=== PATIENT | male | born 1945 | race Caucasian/White ===

== ENCOUNTER 2020-05-22 03:07 | Outpatient (CLI) | payer MEDICARE, SELFPAY ==
[2020-05-23 15:52] LABS: COVID-19 RT-PCR UVMMC Result Negative (Negative)
== END 2020-05-22 03:08 | disposition home or self-care (01) ==
LOC: LBO 03:08
PROVIDERS: PCP Emergency Medicine; Visit Provider Emergency Medicine
DX: Z20.822 Contact with and (suspected) exposure to COVID-19 (principal)
CPT/HCPCS: U0003

== ENCOUNTER 2021-06-21 15:55 | Outpatient (CLI) | payer MEDICARE, SELFPAY ==
[2021-06-21 16:20] LABS: ALT 49 U/L (16-63); AST 44 U/L (15-37); Albumin 3.9 g/dL (3.4-5.0); Alkaline Phosphatase 84 U/L (46-116); Anion Gap 7.3 mmol/L (3-11); BUN 19 mg/dL (7-18); Bilirubin, Total 0.5 mg/dL (0.2-1.0); CO2 33.7 mmol/L (21.0-32.0); CREATININE 1.1 mg/dL (0.70-1.30); Calcium 9.7 mg/dL (8.5-10.1); Calculated LDL 73 mg/dL (<100); Chloride 94 mmol/L (98-107); Cholesterol 167 mg/dL (<200); Glucose 88 mg/dL (74-106); HDL Cholesterol 70 mg/dL (40-60); Potassium 3.9 mmol/L (3.5-5.1); Sodium 135 mmol/L (136-145); Total Protein 7.9 g/dL (6.4-8.2); Triglyceride 123 mg/dL (<150)
== END 2021-06-21 15:56 | disposition home or self-care (01) ==
LOC: LBO 16:08
PROVIDERS: PCP Family Medicine; Visit Provider Family Medicine
DX: E78.5 Hyperlipidemia, unspecified (principal); I10 Essential (primary) hypertension
CPT/HCPCS: 36415; 80053; 80061

== ENCOUNTER → 2022-01-30 13:35 | Outpatient (BNVA) | payer MEDICARE, SELFPAY | PROVIDERS: PCP Family Medicine; Referring Provider Family Medicine; Visit Provider Physical Therapy Assistant | DX: Z12.11 Encounter for screening for malignant neoplasm of colon (principal) ==

== ENCOUNTER 2022-02-13 08:15 | Day surgery (SDC) | payer MEDICARE, SELFPAY ==
--- NOTE | 2022-02-12 20:29 | PDOC.DSDIS_ITS ---
Date of service: 02/13/22 Time of Service: 10:29 Discharge Plan Disposition Patient Disposition: Home Condition: Good Discharge Details Reason For Visit: Screening colonoscopy Attending Provider: Steven Corado Primary Care Provider: Rachel Taveras Home Meds and New Rx's Prescriptions: Continued amlodipine 5 mg tablet 5 mg PO DAILY Qty: 90 4RF multivitamin 1 EACH tablet 1 ea PO DAILY One-Per-Day [place]-3 1 EACH capsule,delayed release(DR/EC) 1 ea PO DAILY naproxen sodium [Aleve] 220 MG tablet 2 tab PO daily prn metoprolol succinate 25 mg tablet extended release 24 hr 25 mg PO DAILY Qty: 90 4RF tamsulosin 0.4 mg capsule 0.4 mg PO HS Qty: 90 4RF furosemide [Lasix] 40 mg tablet 40 mg PO DAILY Qty: 90 3RF pravastatin 40 mg tablet 40 mg PO DAILY Qty: 90 3RF losartan [Cozaar] 100 mg tablet 100 mg PO HS Discontinued polyethylene glycol 3350 17 gram/dose powder 238 g PO ONCE Qty: 238 0RF Rx Instructions: take per colonoscopy instructions bisacodyl [Dulcolax (bisacodyl)] 5 mg tablet,delayed release (DR/EC) 5 mg PO ONCE Qty: 4 0RF Rx Instructions: take per colonoscopy instructions Discharge Instructions Instructions: Diverticulosis (DC), Diverticulitis Diet (GEN), Diverticulitis (GEN), Diverticulosis Diet (GEN) Additional Instructions: 1. If tolerated, consume a soft, low fiber diet for 1-2 days. 2[address] Do not drive, drink alcohol, operate machinery, make critical decisions, or do activities that require coordination or balance for 24 hours. 3. Because air was put into your colon during the procedure, expelling air from your rectum (passing gas or farting) is normal. 4. You may not have a bowel movement for 1-3 days because of the colonoscopy prep. This is normal. 5. Go directly to the emergency room if you notice any of the following: Develop chills (warm to touch), or if you have a thermometer and your temperature is above 101 Difficulty breathing or difficultly swallowing Persistent vomiting Severe abdominal pain, other than gas cramps Severe chest pain Black, tarry stools Any bleeding ? exceeding one tablespoon 6. Call your physician if the site where your intravenous was started becomes red, swollen, painful, and warm to touch. 7. Your physician has reviewed your pre-procedure medications. Please continue to take those medications as previously ordered. You will be given specific information/education regarding any changes to your medications before leaving. Activity:: Activity as Tolerated Diet:: As Tolerated Discharge Orders Discharge Orders: Discharge Order (Routine); Ordered 02/12/22 Ordered By: Steven Corado DS: Diagnosis Discharge Diagnosis (1) Diverticulosis: Status: Acute Asessment and Plan: You have extensive diverticulosis on your colonoscopy. Otherwise, there were no signs of any polyps or cancers.
--- NOTE | 2022-02-12 20:30 | W.COLOREPORT ---
Date of service: 02/13/22 Time of Service: 10:30 Colonoscopy Report Date of procedure: 02/13/22 Pre-op diagnosis general: Screening colonoscopy Post-op diagnosis procedure note: other (Diverticulosis) Procedure: colonoscopy Surgeon: Steven Corado Anesthesia Type: General:No Airway Estimated blood loss (mL): 0 Pathology: none sent Complications: None Disposition: same day Indications: Ibrahima is a 76 year old man who is undergoing a screening colonoscopy. His last one ws in 2006 and is reportedly normal Prep: Miralax/Dulcolax Procedure Start Time: 09:49 Procedure End Time: 10:18 Retraction Time: 19 Findings: Extensive diverticulosis Procedure Description: After the induction of monitored anesthetic care, and with the patient in left lateral decubitus position, I began by performing an external anorectal exam.? Perineum and skin were normal, as was the anal verge.? There was no evidence of external hemorrhoids.? Next, I performed a digital rectal exam.? I did not appreciate any abnormal findings.? Next, I advanced a colonoscope into the rectal vault.? I performed retroflexion.? This was normal.? Using insufflation, I then advanced the colonoscope beyond the rectal folds and into the sigmoid colon before advancing towards the cecum.? There was extensive sigmoid diverticulosis beginning around 25 cm from the anal verge, and extending well up around the splenic flexure. The quality of the prep was excellent.? The scope was noted to be in the cecum by identification of the ileocecal valve and appendiceal orifice.? There was also extensive diverticulosis involving cecum and ascending colon. The transverse colon was relatively spared. I then began withdrawing the colonoscope using repeated irrigation as necessary for full evaluation of the colonic mucosa. ?Once the scope was withdrawn to the level of the rectum, great care was taken to examine portions of the rectal folds.? I did not see any evidence of polyps or other abnormalities besides the diverticulosis. Finally, the scope was withdrawn and the patient was brought to the same-day surgery recovery unit as the anesthetic wore off. ?The findings and instructions were shared with the patient prior to discharge.
--- NOTE | 2022-02-13 06:36 | W.ANESPRE ---
General Info Date of Service Date Performed: 02/13/22 Height: 5 ft 10 in Weight: 93.5 kg Body Mass Index (BMI): 29.5 Surgical Procedure: Operation Date: 02/13/22 09:50 Proposed Procedure Side Surgeon anoop Corado MD Meds Allergies and Home Medications Allergies Allergy/AdvReac Type Severity Reaction Status Date / Time thiopental Allergy Intermediate Skin Rash Verified 02/13/22 08:55 Home Medication Medication Instructions Recorded multivitamin 1 ea PO DAILY 10/20/12 omega-3 fatty acids-fish oil 684 1 ea PO DAILY 10/20/12 mg-1,200 mg capsule,delayed release (One-Per-Day [place]-3) naproxen sodium 220 mg tablet 2 tab PO daily prn 12/09/13 (Aleve) metoprolol succinate 25 mg 25 mg PO DAILY #90 tabs 02/26/21 tablet,extended release 24 hr tamsulosin 0.4 mg capsule 0.4 mg PO HS #90 tabs 02/26/21 amlodipine 5 mg tablet 5 mg PO DAILY #90 tab-caps 05/27/21 furosemide 40 mg tablet (Lasix) 40 mg PO DAILY #90 tab-caps 01/02/22 pravastatin 40 mg tablet 40 mg PO DAILY #90 tab-caps 02/04/22 losartan 100 mg tablet (Cozaar) 100 mg PO HS 02/11/22 Current Visit Medications: Current Medications Generic Name Dose Route Start Last Admin Trade Name Freq PRN Reason Stop Dose Admin Hyoscyamine Sulfate 0.125 mg 02/12/22 20:32 Hyoscyamine 0.125 Mg Sl/Oral/Chew SL DIRECTED PRN Ringer's Solution 1,000 mls @ 80 mls/hr 02/13/22 06:00 IV 03/14/22 23:59 INFUSION [facility] IV Miscellaneous Supplies 1 each 02/13/22 06:00 Iv Access IV 03/14/22 23:59 DIRECTED [place] Ondansetron HCl 4 mg 02/12/22 20:32 Ondansetron 4 Mg/2 Ml Vial IVP Q4H PRN PRN Nausea / Vomiting Sodium Chloride 0 ml 02/13/22 06:00 Normal Saline Flush 10 Ml Syr IV 03/14/22 23:59 PRN PRN Sodium Chloride 0 ml 02/13/22 06:00 Normal Saline 10 Ml Vial IJ 03/14/22 23:59 DIRECTED PRN Sterile Water 0 ml 02/13/22 06:00 Water,Injection,Sterile 10 Ml Vial IJ 03/14/22 23:59 DIRECTED PRN PFSH Active Problems Active Problems: Problem Status Onset Code Alcohol abuse 11/02/12 F10.10 Benign prostatic hyperplasia N40.0 Essential hypertension I10 Hyperlipidemia E78.5 Obesity E66.9 Medical History Medical History COVID-19 05/2021-URI symptoms, breakthrough-fully immunized, treated with Paxlovid Spinal stenosis surgery Magn[place] 05/06 x 2; now disabled. Surgical History Surgical History History of colonoscopy History of umbilical hernia repair S/P cataract extraction Status post lumbar spine surgery for decompression of spinal cord Tobacco Smoking/Tobacco Use Status: Former Tobacco Use Passive smoking exposure: No Alcohol Alcohol Intake: current Alcohol intake frequency: 3 or more drinks per day Alcohol type: wine Counseling provided: provider counseling Substance Use Substance use: Never Substance use type: does not use Vital Signs and Lab Results Lab Results Blood Type / Crossmatch: No Data to Display Complete Blood Count: No Data to Display Complete Metabolic Panel: No Data to Display Liver Function Panel: No Data to Display Coagulation Panel: No Data to Display Cardiac Panel: No Data to Display Arterial Blood Gas: No Data to Display Venous Blood Gas: No Data to Display Pancreas Panel: No Data to Display Thyroid Panel: No Data to Display Infectious Disease: No Data to Display Blood Cultures: No Data to Display Toxicology Panel: No Data to Display Anesthesia Assessment and Plan Anesthesia History Personal History: No History of Anesthesia Complications Family History: No Family History of Anesthesia Complications Exercise Tolerance Exercise Tolerance: Metabolic Equivalents>4 Pertinent Negatives Pertinent Negatives: No Symptoms of GERD, No Major Cardiovascular Symptoms or Complaints, No Major Pulmonary Symptoms or Complaints and No History of CVA/TIA Cardiac & Pulmonary Exam Cardiac Exam: Normal S1/S2 Heart Sounds Pulmonary Exam: Clear Bilateral Breath Sounds Implantable Cardiac Device Does patient have a Pacemaker or an ICD?: No Airway Exam Known Difficult Airway: No Mallampati Class: 2 Mouth Opening: Normal (> 3cm) Thyromental Distance: Greater than 3 cm Neck Range of Motion: Full ROM Neck Circumference: Normal Teeth Condition: Normal Dentition ASA Classification ASA Score: ASA 2 Emergency Case?: No NPO Status NPO Status: NPO Clears >2 hours, Solids >8 hours Anesthesia Plan Resuscitation Status: Full Code Anesthesia Technique: General Anesthesia Airway Planned: Natural Airway Monitors Used: Standard Monitors Preoperative Comments:: Concern related to positioning secondary to patient history lumbar region. Will discuss at length with patient.
[2022-02-13 08:34] VITALS: BP 151/85; PULSE 87; RESP 16; TEMP 36; O2SAT 98
[2022-02-13] MEDS: Lactated Ringers 1,000 ML 80 ML IV (08:47)
[2022-02-13 10:26] VITALS: BP 93/67; PULSE 72; RESP 16; TEMP 36; O2SAT 96
[2022-02-13 10:30] VITALS: BMI 29.5
--- NOTE | 2022-02-13 10:30 | W.ANESPOSTOP ---
Postoperative Evaluation Date, Time and Location Date Performed: 02/13/22 Time Performed: 10:31 Patient Location: Day Surgery Unit Vital Signs Most Recent Imported Vital Signs: Most Recent Vital Signs Temp Pulse Resp BP Pulse Ox 36 C L 72 16 93/67 L 96 02/13/22 10:26 02/13/22 10:26 02/13/22 10:26 02/13/22 10:02/13/22 10:26 Pain Score Most Recent Pain Score: Most Recent Pain Score Pain Level 0 02/13/22 10:26 Assessment Mental Status: Awake (Alert & Oriented to Patient Baseline) Airway and Respiratory Function: Patent airway with normal (patient baseline) respiratory exam Cardiovascular Function: Hemodynamically Stable Hydration Status: Adequately Hydrated Nausea & Vomiting: No Nausea or Vomiting Pain: Pt. Denies Any Pain Peripheral Nerve Block: Patient did not receive a nerve block
[2022-02-13 10:55] VITALS: BP 118/79; PULSE 68; RESP 16; TEMP 36.3; O2SAT 95
== END 2022-02-13 11:09 | disposition home or self-care (01) ==
PROVIDERS: PCP Family Medicine; Visit Provider Surgery
PROC: 0DJD8ZZ Inspection of Lower Intestinal Tract, Via Natural or Artificial Opening Endoscopic (ICD-10-PCS; CPT 45378; principal; 2022-02-13 09:45)
DX: Z12.11 Encounter for screening for malignant neoplasm of colon (principal); K57.30 Diverticulosis of large intestine without perforation or abscess without bleeding
CPT/HCPCS: G0121

== ENCOUNTER 2022-09-05 09:06 | Outpatient (CLI) | payer MEDICARE, SELFPAY ==
[2022-09-05 12:37] LABS: ALT 25 U/L (16-63); AST 26 U/L (15-37); Albumin 3.7 g/dL (3.4-5.0); Alkaline Phosphatase 99 U/L (46-116); Anion Gap 9.6 mmol/L (3-11); BUN 17 mg/dL (7-18); Bilirubin, Total 0.8 mg/dL (0.2-1.0); CO2 30.4 mmol/L (21.0-32.0); Calcium 9.6 mg/dL (8.5-10.1); Chloride 93 mmol/L (98-107); Estimated GFR 77.04 (mL/min/1.73m2); Glucose 118 mg/dL (74-106); Potassium 3.8 mmol/L (3.5-5.1); Sodium 133 mmol/L (136-145); Total Protein 7.9 g/dL (6.4-8.2)
== END 2022-09-05 09:07 | disposition home or self-care (01) ==
LOC: LOS 09:07
PROVIDERS: PCP Family Medicine; Referring Provider Family Medicine; Visit Provider Family Medicine
DX: I10 Essential (primary) hypertension (principal); E66.8 Other obesity
CPT/HCPCS: 36415; 80053

== ENCOUNTER 2022-10-25 07:29 | Emergency (ER) | payer MEDICARE, SELFPAY ==
[2022-10-25 07:34] VITALS: BP 132/71; PULSE 120; RESP 18; TEMP 36.5; O2SAT 96
[2022-10-25 08:06] LABS: Bilirubin Negative (Negative); Blood Large (Negative); Clarity Cloudy (Clear); Glucose Negative (Negative); Ketones Negative (Negative); Leukocyte Esterase Large (Negative); Nitrite Negative (Negative); Urobilinogen 0.2 mg/dL (Up to 0.2)
[2022-10-25 08:16] LABS: C & S Indicated? Yes; RBC >50 HPF (0-2); WBC 20-50 HPF (0-5)
--- NOTE | 2022-10-25 08:21 | ED.GENADUL_ITS ---
Discharge Plan Disposition Patient Disposition: Home Condition: Stable Discharge Details Clinical Impression: Acute hemorrhagic cystitis, Dehydration Primary Care Provider: Rachel Taveras ED Provider: Bianka Morataya Home Meds and New Rx's Prescriptions: New cephalexin 500 mg capsule 500 mg PO BID 7 Days Qty: 14 0RF Rx Instructions: Take 1 capsule twice daily by mouth for the next 7 days Continued multivitamin 1 EACH tablet 1 ea PO DAILY One-Per-Day [place]-3 1 EACH capsule,delayed release(DR/EC) 1 ea PO DAILY furosemide [Lasix] 40 mg tablet 40 mg PO DAILY Qty: 90 3RF pravastatin 40 mg tablet 40 mg PO DAILY Qty: 90 3RF amlodipine 5 mg tablet 5 mg PO DAILY Qty: 90 3RF metoprolol succinate 25 mg tablet extended release 24 hr 25 mg PO DAILY Qty: 90 4RF losartan [Cozaar] 100 mg tablet 100 mg PO HS No Action naproxen sodium [Aleve] 220 MG tablet 2 tab PO daily prn tamsulosin 0.4 mg capsule 0.4 mg PO HS Qty: 90 4RF Discharge Instructions Instructions: Dehydration (ED), Hematuria (ED) Additional Instructions: You do have a urinary tract infection and some dehydration. Please increase oral fluids over the next few days. Take the antibiotic as directed with yogurt or a probiotic. Return to the ER sooner for any worsening bleeding, feeling like you cannot pee, dizziness lightheadedness or concerns Please follow-up with urology within the next 3 to 5 days. Please call early next week to make an appointment. you are also placed on a care management list to assist you with getting an appointment. Follow up with primary care provider in 3-5 days. Return to ED sooner if any worsening or concerns. Increase oral fluids. Please stay away from alcohol or anything that can thin your blood. Referrals: Randall Clements MD [ [facility] STAFF PHYSICIAN] - 1 week Ashley Hoffman DNP [NURSE PRACTITIONER] - 5 days Rachel Taveras MD [Primary Care Provider] - Return if symptoms worsen Discharge Data Discharge Date/Time-TO BE ENTERED AT DEPARTURE: 10/25/22 10:20 Medical Decision Making 77-year-old male presents to the ER with a past medical history of hypertension hyperlipidemia spinal stenosis obesity BPH and alcohol abuse with chief complaint of hematuria x2 days. reports that he is passing clots this he has never had anything like this before. He denies any dizziness lightheadedness denies any abdominal pain or back pain however he does have a history of spinal stenosis he reports none out of the normal. Upon arrival he is tachycardic with a heart rate of 1 20-1 30, he does endorse greater than 3 drinks a day. He also does take an Aleve daily as needed. Urinalysis shows greater than 300 protein large blood greater than 50 RBCs 20-50 WBCs culture is pending at this time. CBC CMP 500 cc normal saline bolus ordered. Differential diagnosis includes not limited to hemorrhagic cystitis, anxiety, alcohol withdrawal, however no tremors, Heart rate is no 97, O2 sat 95% on room air. CBC shows RBCs at 3.50 hemoglobin 11.6 hematocrit 32.9, MCH 33.1. Platelets 363 no leukocytosis no left shift. Last H&H we have is from 2015. On reevaluation patient's heart rate is 88 he is continuing to get normal saline. I did discuss at length home care will place patient on cephalexin twice daily for the next 7 days referred to urology for hematuria and acute hemorrhagic cystitis. Discussed strict return instructions and follow-up care and patient verbalized understanding. Lab Data Lab results reviewed: Yes I reviewed the patient's lab results. Labs: 10/25/22 07:46 Urine - Reflex from Ua Urine Culture - Pending Laboratory Tests Range/Units 10/25/22 10/25/22 10/25/22 07:46 08:33 08:42 WBC (4.4-10.8) 10^3/uL RBC (4.36-5.78) 10^6/uL Hgb (13.5-17.5) g/dL Hct (40.0-50.0) % MCV (80-95) fL MCH (27.0-33.0) pg MCHC (32.0-36.0) % RDW (11.8-14.1) % Plt Count (130-400) 10^3/uL MPV (8.0-11.0) fL Immature Gran % Neutrophils % Lymphocytes % Monocytes % Eosinophils % Basophils % Nucleated RBC % (0.0-0.3) % Absolute Neutrophils (1.2-6.7) 10^3/uL Absolute Lymphocytes (1.2-3.4) 10^3/uL Absolute Monocytes (0.1-0.8) 10^3/uL Absolute Eosinophils (0.0-0.7) 10^3/uL Absolute Basophils (0.0-0.2) 10^3/uL Sodium (136-145) mmol/L 126 L Potassium (3.5-5.1) mmol/L 4.5 Chloride (98-107) mmol/L 87 L Carbon Dioxide (21.0-32.0) mmol/L 26.8 Anion Gap (3-11) mmol/L 12.2 H BUN (7-18) mg/dL 31 H Creatinine (0.70-1.30) mg/dL 1.7 H Est GFR (CKD-EPI 2020) (mL/min/1.73m2) 40.50 Glucose (74-106) mg/dL 135 H Calcium (8.5-10.1) mg/dL 10.0 Total Bilirubin (0.2-1.0) mg/dL 0.8 AST (15-37) U/L 15 ALT (16-63) U/L 19 Alkaline Phosphatase (46-116) U/L 85 Total Protein (6.4-8.2) g/dL 8.8 H Albumin (3.4-5.0) g/dL 3.3 L Urine Color (Yellow) Red Urine Clarity (Clear) Cloudy Urine pH (5-8) 7.0 Ur Specific [place] (1.005-1.025) 1.020 Urine Protein (Negative) mg/dL >=300 H Urine Ketones (Negative) mg/dL Negative Urine Blood (Negative) Large H Urine Nitrite (Negative) Negative Urine Bilirubin (Negative) Negative Urine Urobilinogen (Up to 0.2) mg/dL 0.2 Ur Leukocyte Esterase (Negative) Large H Urine RBC (0-2) HPF >50 H Urine WBC (0-5) HPF 20-50 H Ur Epithelial Cells Not Applicable Urine Crystals Not Applicable Urine Bacteria Not Applicable Urine Mucus Not Applicable Ur Culture Indicated? Yes Urine Glucose (Negative) mg/dL Negative Ethyl Alcohol Cancelled < 3.0 Range/Units 10/25/22 08:42 WBC (4.4-10.8) 10^3/uL 7.94 RBC (4.36-5.78) 10^6/uL 3.50 L Hgb (13.5-17.5) g/dL 11.6 L Hct (40.0-50.0) % 32.9 L MCV (80-95) fL 94 MCH (27.0-33.0) pg 33.1 H MCHC (32.0-36.0) % 35.3 RDW (11.8-14.1) % 11.9 Plt Count (130-400) 10^3/uL 363 MPV (8.0-11.0) fL 8.0 Immature Gran % 2.0 Neutrophils % 74.0 Lymphocytes % 15.1 Monocytes % 7.7 Eosinophils % 0.9 Basophils % 0.3 Nucleated RBC % (0.0-0.3) % 0.0 Absolute Neutrophils (1.2-6.7) 10^3/uL 5.88 Absolute Lymphocytes (1.2-3.4) 10^3/uL 1.20 Absolute Monocytes (0.1-0.8) 10^3/uL 0.61 Absolute Eosinophils (0.0-0.7) 10^3/uL 0.07 Absolute Basophils (0.0-0.2) 10^3/uL 0.02 Sodium (136-145) mmol/L Potassium (3.5-5.1) mmol/L Chloride (98-107) mmol/L Carbon Dioxide (21.0-32.0) mmol/L Anion Gap (3-11) mmol/L BUN (7-18) mg/dL Creatinine (0.70-1.30) mg/dL Est GFR (CKD-EPI 2020) (mL/min/1.73m2) Glucose (74-106) mg/dL Calcium (8.5-10.1) mg/dL Total Bilirubin (0.2-1.0) mg/dL AST (15-37) U/L ALT (16-63) U/L Alkaline Phosphatase (46-116) U/L Total Protein (6.4-8.2) g/dL Albumin (3.4-5.0) g/dL Urine Color (Yellow) Urine Clarity (Clear) Urine pH (5-8) Ur Specific [place] (1.005-1.025) Urine Protein (Negative) mg/dL Urine Ketones (Negative) mg/dL Urine Blood (Negative) Urine Nitrite (Negative) Urine Bilirubin (Negative) Urine Urobilinogen (Up to 0.2) mg/dL Ur Leukocyte Esterase (Negative) Urine RBC (0-2) HPF Urine WBC (0-5) HPF Ur Epithelial Cells Urine Crystals Urine Bacteria Urine Mucus Ur Culture Indicated? Urine Glucose (Negative) mg/dL Ethyl Alcohol HPI General Mode of arrival: ambulatory . Date/Time Provider Initiated Documentation: 10/25/22 08:05 . Limitations to Documentation: no limitations . Information obtained by: patient, RN notes reviewed and old records reviewed . HPI Narrative: 77-year-old male presents to the ER with a past medical history of hypertension hyperlipidemia spinal stenosis obesity BPH and alcohol abuse with chief complaint of hematuria x2 days. reports that he is passing clots this he has never had anything like this before. He denies any dizziness light headedness denies any abdominal pain or back pain however he does have a history of spinal stenosis he reports none out of the normal. Upon arrival he is tachycardic with a heart rate of 1 20-1 30, he does endorse greater than 3 drinks a day. He also does take an Aleve daily as needed. Related Data Home Medications Medication Instructions Recorded Confirmed multivitamin 1 ea PO DAILY 10/20/12 10/25/22 omega-3 fatty acids-fish oil 684 1 ea PO DAILY 10/20/12 10/25/22 mg-1,200 mg capsule,delayed release (One-Per-Day [place]-3) naproxen sodium 220 mg tablet 2 tab PO daily prn 12/09/13 10/25/22 (Aleve) furosemide 40 mg tablet (Lasix) 40 mg PO DAILY #90 tab-caps 01/02/22 10/25/22 pravastatin 40 mg tablet 40 mg PO DAILY #90 tab-caps 02/04/22 10/25/22 losartan 100 mg tablet (Cozaar) 100 mg PO HS 02/11/22 10/25/22 amlodipine 5 mg tablet 5 mg PO DAILY #90 tab-caps 02/21/22 10/25/22 metoprolol succinate 25 mg 25 mg PO DAILY #90 tabs 05/22/22 10/25/22 tablet,extended release 24 hr tamsulosin 0.4 mg capsule 0.4 mg PO HS #90 tabs 05/22/22 10/25/22 cephalexin 500 mg capsule 500 mg PO BID uti 7 days #14 caps 10/25/22 Previous Rx's Medication Instructions Recorded furosemide 40 mg tablet (Lasix) 40 mg PO DAILY #90 tab-caps 01/02/22 pravastatin 40 mg tablet 40 mg PO DAILY #90 tab-caps 02/04/22 amlodipine 5 mg tablet 5 mg PO DAILY #90 tab-caps 02/21/22 metoprolol succinate 25 mg 25 mg PO DAILY #90 tabs 05/22/22 tablet,extended release 24 hr tamsulosin 0.4 mg capsule 0.4 mg PO HS #90 tabs 05/22/22 cephalexin 500 mg capsule 500 mg PO BID uti 7 days #14 caps 10/25/22 Allergies Allergy/AdvReac Type Severity Reaction Status Date / Time thiopental Allergy Intermediate Skin Rash Verified 10/25/22 08:20 General Stated Complaint: Urinary VELASQUEZ: 4 Review of Systems All systems reviewed & are unremarkable except as noted in HPI and below PFSH All Active Problems (Updated 10/25/22 @ 10:06 by Bianka Morataya NP) Alcohol abuse (Chronic 11/02/12) 05/2021-4 drinks/day Benign prostatic hyperplasia (Chronic) Essential hypertension (Chronic) Hyperlipidemia (Chronic) Spinal stenosis (Chronic) surgery [place] 05/06 x 2; now disabled. Obesity (Chronic) Acute hemorrhagic cystitis (Acute) Dehydration (Acute) Medical History (Updated 10/25/22 @ 10:06 by Bianka Morataya NP) COVID-19 05/2021-URI symptoms, breakthrough-fully immunized, treated with Paxlovid Diverticulosis Surgical History History of colonoscopy History of umbilical hernia repair S/P cataract extraction Status post lumbar spine surgery for decompression of spinal cord Family History Mother Personal history of malignant neoplasm Pancreatic Father Personal history of malignant neoplasm Lung Brother Dementia Daughter No problems noted. Daughter No problems noted. 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 Do you think of yourself as: straight/heterosexual Current gender identity: male What is your relationship status?: Panel score (0-1 are the most socially isolated patients): 1 Do you feel safe at home: Yes Do you feel safe in your relationship?: Yes Exam Narrative Exam Narrative: Constitutional: Alert and oriented x3. Appears stated age. Normal body habitus. Head: Normocephalic, no trauma. Eyes: Pupils PERRL, Red reflex noted, EOM's intact. Eyelids symmetrical without lesions, discharge, or swelling. ENT: Bilateral TM's WNL, External ear normal to inspection, no mastoid TTP, swelling, or erythema, Nasal turbinates WNL, no nasal discharge. Normal dentition, Posterior pharynx WNL, no exudate. Chest: Tachycardic upon arrival. Resp: Lungs clear to auscultation bilaterally, no wheezes, rales, or rhonchi. Abdomen: Soft, non-distended, Normoactive bowel sounds all 4 quads. Musculoskeletal: Normal gait, 5/5 strength to all four extremities. Skin: No suspicious rashes or lesions. Capillary refill less than 2 sec. Neurologic: Cranial nerves II-XII intact. Alert and oriented x 3. Motor: No deficits noted. Sensory: Intact bilaterally all 4 extremities. Reflexes: DTR's intact bilaterally.. Hematologic/Lymphatic: No ecchymosis, no lymphadenopathy. Course Vital Signs Vital signs: Vital Signs Temperature 36.5 C 10/25/22 07:34 Pulse 120 H 10/25/22 07:34 Respiratory Rate 18 10/25/22 07:34 Blood Pressure 132/71 10/25/22 07:34 Pulse Oximetry 96 10/25/22 07:34 Temperature 36.5 C 10/25/22 07:34 Temperature Source Temporal Artery Scan 10/25/22 07:34 Pulse 120 H 10/25/22 07:34 Respiratory Rate 18 10/25/22 07:34 Respiratory Effort Normal, Non-Labored 10/25/22 08:17 Blood Pressure 132/71 10/25/22 07:34 Blood Pressure Position Sitting 10/25/22 07:34 Pulse Oximetry 96 10/25/22 07:34 Oxygen Delivery Method Room Air 10/25/22 07:34 Oxygen Flow Rate 0 10/25/22 07:34 Pain Level 0 10/25/22 07:34 Lab/Test Results Lab/Test Results: 10/25/22 07:46 Urine - Reflex from Ua Urine Culture - Pending Laboratory Tests Range/Units 10/25/22 07:46 Urine Color (Yellow) Red Urine Clarity (Clear) Cloudy Urine pH (5-8) 7.0 Ur Specific [place] (1.005-1.025) 1.020 Urine Protein (Negative) mg/dL >=300 H Urine Ketones (Negative) mg/dL Negative Urine Blood (Negative) Large H Urine Nitrite (Negative) Negative Urine Bilirubin (Negative) Negative Urine Urobilinogen (Up to 0.2) mg/dL 0.2 Ur Leukocyte Esterase (Negative) Large H Urine RBC (0-2) HPF >50 H Urine WBC (0-5) HPF 20-50 H Ur Epithelial Cells Not Applicable Urine Crystals Not Applicable Urine Bacteria Not Applicable Urine Mucus Not Applicable Ur Culture Indicated? Yes Urine Glucose (Negative) mg/dL Negative PAWSS Have you Been Recently Intoxicated or Drunk Within the Last 30 days?: No Have you Ever Experienced Previous Episodes of Alcohol Withdrawal?: No Have you ever Experienced Withdrawal Seizures?: No Have you ever Experienced Delirium Tremens(DT)s?: No Have you ever undergone Alcohol Rehabilitation Treatment (i.e, inpt ot outpatient treatment programs)?: No Have you ever Experienced Blackouts?: No Have you ever Combined Alcohol with other Downers within the last 90 days?: No Have you ever Combined Alcohol with any other Substance of Abuse during the last 90 days?: No Positive Blood Alcohol level on Presentation? [PCS.BAL]: No Evidence of Increased Autonomic Activity (i.e. HR>120, tremor, sweating, agitation, nausea)?: No Result: 0
[2022-10-25 08:49] LABS: Abs Immature Grans 0.16 10^3/uL (0.0-0.06); Absolute Basophil Count 0.02 10^3/uL (0.0-0.2); Absolute Eosinophil Count 0.07 10^3/uL (0.0-0.7); Absolute Monocyte Count 0.61 10^3/uL (0.1-0.8); Absolute Neutrophil Count 5.88 10^3/uL (1.2-6.7); Basophils % 0.3; Eosinophils % 0.9; HCT 32.9 % (40.0-50.0); HGB 11.6 g/dL (13.5-17.5); Lymphocytes % 15.1; MCH 33.1 pg (27.0-33.0); MCHC 35.3 % (32.0-36.0); MCV 94 fL (80-95); Monocytes % 7.7; Platelet Count 363 10^3/uL (130-400); RDW 11.9 % (11.8-14.1); RDW-SD 40.5 fL; WBC 7.94 10^3/uL (4.4-10.8)
[2022-10-25] MEDS: Normal Saline 500 ML IV (08:50)
[2022-10-25 09:05] LABS: ALT 19 U/L (16-63); AST 15 U/L (15-37); Albumin 3.3 g/dL (3.4-5.0); Alkaline Phosphatase 85 U/L (46-116); Anion Gap 12.2 mmol/L (3-11); BUN 31 mg/dL (7-18); Bilirubin, Total 0.8 mg/dL (0.2-1.0); CO2 26.8 mmol/L (21.0-32.0); CREATININE 1.7 mg/dL (0.70-1.30); Chloride 87 mmol/L (98-107); Glucose 135 mg/dL (74-106); Potassium 4.5 mmol/L (3.5-5.1); Sodium 126 mmol/L (136-145); Total Protein 8.8 g/dL (6.4-8.2)
[2022-10-25 09:06] LABS: ETHANOL BLOOD < 3.0 mg/dL (<10)
--- NOTE | 2022-10-25 09:15 | NUR.NOTE ---
Nursing Note:referral to urology
[2022-10-25] MEDS: Cephalexin 500 MG CAP PO (09:33)
[2022-10-25 09:56] VITALS: BP 106/66; PULSE 85; RESP 18; O2SAT 97
== END 2022-10-25 10:20 | disposition home or self-care (01) ==
PROVIDERS: Emergency Medicine Emergency Medical Services; Emergency Provider Registered Nurse Emergency; PCP Family Medicine
DX: N30.01 Acute cystitis with hematuria (principal); I10 Essential (primary) hypertension; E78.5 Hyperlipidemia, unspecified; N40.0 Benign prostatic hyperplasia without lower urinary tract symptoms; F10.10 Alcohol abuse, uncomplicated; Z87.891 Personal history of nicotine dependence; Z79.899 Other long term (current) drug therapy
CPT/HCPCS: 36415; 80053; 96360; 99283; 80320; 81003; 81015; 85025; 87086

== ENCOUNTER → 2022-11-04 08:25 | Outpatient (BNVA) | payer MEDICARE, SELFPAY | PROVIDERS: PCP Family Medicine; Referring Provider Family Medicine; Visit Provider Nurse Practitioner Gerontology | DX: N40.1 Benign prostatic hyperplasia with lower urinary tract symptoms (principal); R33.9 Retention of urine, unspecified; R31.0 Gross hematuria; I10 Essential (primary) hypertension | CPT/HCPCS: 36415; 51798; 81003; 99215 ==

== ENCOUNTER 2022-11-04 09:58 | Outpatient (REF) | payer MEDICARE, SELFPAY ==
[2022-11-04 12:58] LABS: HCT 28.9 % (40.0-50.0); HGB 10.2 g/dL (13.5-17.5); MCH 33.7 pg (27.0-33.0); MCHC 35.3 % (32.0-36.0); MCV 95 fL (80-95); MPV 8.7 fL (8.0-11.0); Platelet Count 395 10^3/uL (130-400); RBC 3.03 10^6/uL (4.36-5.78); RDW 12.1 % (11.8-14.1); RDW-SD 42.3 fL; WBC 5.36 10^3/uL (4.4-10.8)
[2022-11-04 13:07] LABS: BUN 28 mg/dL (7-18); CREATININE 1.5 mg/dL (0.70-1.30); Estimated GFR 47.06 (mL/min/1.73m2)
[2022-11-05 18:24] LABS: PSA, Diagnostic 10.2 ng/mL (<=6.5)
== END 2022-11-04 09:59 | disposition home or self-care (01) ==
LOC: LBN 09:58
PROVIDERS: PCP Family Medicine; Visit Provider Nurse Practitioner Gerontology
DX: N40.0 Benign prostatic hyperplasia without lower urinary tract symptoms (principal); R31.0 Gross hematuria; R33.9 Retention of urine, unspecified; R39.89 Other symptoms and signs involving the genitourinary system
CPT/HCPCS: 84520; 85027; 82565; 84153

== ENCOUNTER → 2022-11-05 01:01 | Outpatient (CLI) | payer MEDICARE, SELFPAY ==
--- NOTE | 2022-11-05 06:30 | DI.CT_ITS ---
Exam(s) CT ABDOMEN PELVIS WO/W EXAM: CT ABDOMEN PELVIS WO/W CLINICAL HISTORY: Gross hematuria, elevated PVR, bump in Renals,r31.9. TECHNIQUE: Imaging Protocol: Axial computed tomography images with coronal and sagittal reformatted images were created and reviewed. Images were performed from the lung bases through the ischial tuberosities before IV contrast and fol lowing IV contrast using a 70 second delay, followed by 7 minutes delayed images. CONTRAST MATERIAL: Intravenous: Omnipaque 350 Contrast volume:100 cc Oral: no COMPARISON: MR MRI - LUMBAR SPINE WO CONTRAST from 10/12/2014 CR LUMBAR SPINE COMPLETE from 07/08/2017 FINDINGS: ABDOMEN: Lung Bases: Normal where visualized. Liver: Normal density. A few scattered cysts are seen. No suspicious mass. Gallbladder and biliary tract: Numerous stones are noted nearly filling the gallbladder. No abnormal gallbladder distention or wall thickening. Pancreas: Normal density, no abnormal calcifications or inflammatory process. Spleen: Normal. Kidneys: And 9 by 7 centimeter cyst upper pole left kidney versus severe dilatation of the upper pole skylar. It shows small amount of thin peripheral calcification. No solid enhancing components.. On delayed images, this communicates with the collecting system which shows contrast. Moderate bilater al hydronephrosis. The ureters are dilated down to the ureterovesical junction. No obstructing ston es.. No suspicious masses seen. Symmetric nephrograms and pyelograms. Adrenal glands: No masses seen. Lymph nodes: Within normal limits. Abdominal Aorta: Abdominal portion non-dilated. Soft tissues: Tiny left fatty containing inguinal hernia PELVIS: Bladder: Distended to the level of the umbilicus.. Mild diffuse wall thickening and trabeculation. No evidence of a mass.No evidence of calculi. Bowel: Severe diverticulosis throughout the colon. No obstruction or bowel wall thickening. Appendix normal. Peritoneal cavity: No ascites, collection or mesenteric inflammatory response. Soft tissues: Bones: Advanced degenerative disc changes and facet degenerative changes. No compression fractures. Reproductive organs: Enlarged prostate. IMPRESSION: Enlarged prostate. Distended bladder showing mild wall thickening and trabeculation. Moderate bilateral symmetric hydronephrosis. A large cystic area at the upper pole collecting system appears to communicate with the collecting system on delayed images and shows some filling with cont rast. No suspicious renal mass. RADIATION DOSE DELIVERED: 3,733.49mGy.cm Total DLP DATA REPOSITORY: All CT scans at this facility are submitted to the National Radiology Data Registry (NRDR) Dose Index Registry (DIR) with the [employer] [place] [employer] (ACR). RADIATION OPTIMIZATION: All CT scans at this facility use at least one of these dose optimization te chniques: automated exposure control; mA and/or kV adjustment per patient size (includes targeted exa ms where dose is matched to clinical indication); or iterative reconstruction.
[2022-11-05] MEDS: Omnipaque 350 MG/ML 100 ML BTL IJ (08:52)
[2022-11-05] MEDS: Normal Saline - Diluent 50 ML VIAL IJ (08:53)
== END ==
PROVIDERS: PCP Family Medicine; Visit Provider Nurse Practitioner Gerontology
DX: N40.1 Benign prostatic hyperplasia with lower urinary tract symptoms (principal); N13.2 Hydronephrosis with renal and ureteral calculous obstruction; R93.41 Abnormal radiologic findings on diagnostic imaging of renal pelvis, ureter, or bladder
CPT/HCPCS: 74178; J3490

== ENCOUNTER → 2022-11-06 12:18 | Outpatient (BNVA) | payer MEDICARE, SELFPAY | PROVIDERS: PCP Family Medicine; Referring Provider Family Medicine; Visit Provider Nurse Practitioner Gerontology | DX: N40.1 Benign prostatic hyperplasia with lower urinary tract symptoms (principal); R31.0 Gross hematuria; R33.9 Retention of urine, unspecified; Z46.6 Encounter for fitting and adjustment of urinary device; R97.20 Elevated prostate specific antigen [PSA]; N13.30 Unspecified hydronephrosis; I10 Essential (primary) hypertension | CPT/HCPCS: 99215 ==

== ENCOUNTER 2022-11-11 03:46 | Outpatient (CLI) | payer MEDICARE, SELFPAY ==
[2022-11-11 13:01] LABS: HCT 29.7 % (40.0-50.0); HGB 10.4 g/dL (13.5-17.5); MCH 33.2 pg (27.0-33.0); MCV 95 fL (80-95); MPV 8.1 fL (8.0-11.0); Platelet Count 313 10^3/uL (130-400); RBC 3.13 10^6/uL (4.36-5.78); RDW 12.7 % (11.8-14.1); RDW-SD 43.8 fL; WBC 9.54 10^3/uL (4.4-10.8)
[2022-11-11 13:45] LABS: BUN 14 mg/dL (7-18); CREATININE 1.2 mg/dL (0.70-1.30); Estimated GFR 61.52 (mL/min/1.73m2)
== END 2022-11-11 03:47 | disposition home or self-care (01) ==
LOC: LBO 03:46
PROVIDERS: Nurse Practitioner Gerontology; PCP Family Medicine; Visit Provider Family Medicine
DX: R53.83 Other fatigue (principal); R31.0 Gross hematuria; R33.9 Retention of urine, unspecified; N52.9 Male erectile dysfunction, unspecified
CPT/HCPCS: 36415; 84520; 85027; 82565

== ENCOUNTER → 2022-12-02 10:45 | Outpatient (BNVA) | payer MEDICARE, SELFPAY | PROVIDERS: PCP Family Medicine; Visit Provider Nurse Practitioner Gerontology | DX: Z46.6 Encounter for fitting and adjustment of urinary device (principal); N40.1 Benign prostatic hyperplasia with lower urinary tract symptoms; R31.0 Gross hematuria; R33.9 Retention of urine, unspecified; R97.20 Elevated prostate specific antigen [PSA]; I10 Essential (primary) hypertension | CPT/HCPCS: 99213 ==

== ENCOUNTER → 2023-01-01 12:47 | Outpatient (BNVA) | payer MEDICARE, SELFPAY | PROVIDERS: PCP Family Medicine; Referring Provider Family Medicine; Visit Provider Nurse Practitioner Gerontology | DX: N40.0 Benign prostatic hyperplasia without lower urinary tract symptoms (principal); R31.0 Gross hematuria; R33.9 Retention of urine, unspecified; R97.20 Elevated prostate specific antigen [PSA] | CPT/HCPCS: 51702; 99214 ==

== ENCOUNTER 2023-01-19 07:15 | Observation (INO) | payer MEDICARE, SELFPAY ==
[2023-01-19] VITALS (14 sets, daily range): BP systolic 93–159; BP diastolic 60–93; PULSE 64–110; RESP 12–21; TEMP 36.4–37; O2SAT 92–98; BMI 26.2
--- NOTE | 2023-01-19 06:52 | ANES.PREOP_ITS ---
General Info Date of Service Date Performed: 01/19/23 Height: 5 ft 11 in Weight: 85.275 kg Body Mass Index (BMI): 26.2 Surgical Procedure: Operation Date: 01/19/23 09:25 Proposed Procedure Side Surgeon p Cysto/Transurethral Resection Prostate/Vaporization of Prostate Randall Clements MD Meds Allergies and Home Medications Allergies Allergy/AdvReac Type Severity Reaction Status Date / Time thiopental Allergy Intermediate Skin Rash Verified 01/19/23 07:52 Home Medication Medication Instructions Recorded multivitamin 1 ea PO DAILY 10/20/12 omega-3 fatty acids-fish oil 684 1 ea PO DAILY 10/20/12 mg-1,200 mg capsule,delayed release (One-Per-Day [place]-3) naproxen sodium 220 mg tablet 2 tab PO daily prn 12/09/13 (Aleve) furosemide 40 mg tablet (Lasix) 40 mg PO DAILY #90 tab-caps 01/02/22 pravastatin 40 mg tablet 40 mg PO DAILY #90 tab-caps 02/04/22 losartan 100 mg tablet (Cozaar) 100 mg PO HS 02/11/22 amlodipine 5 mg tablet 5 mg PO DAILY #90 tab-caps 02/21/22 metoprolol succinate 25 mg 25 mg PO DAILY #90 tabs 05/22/22 tablet,extended release 24 hr tamsulosin 0.4 mg capsule 0.4 mg PO HS #90 tabs 05/22/22 Current Visit Medications: Current Medications Generic Name Dose Route Start Last Admin Trade Name Freq PRN Reason Stop Dose Admin Ringer's Solution 1,000 mls @ 80 mls/hr 01/19/23 06:00 IV 02/13/23 23:59 INFUSION [place] Cefazolin Sodium/Dextrose 2 gm in 50 mls @ 100 mls/hr 01/19/23 06:00 Ancef Duplex IVPB 01/19/23 16:00 PREOP [place] IV Miscellaneous Supplies 1 each 01/19/23 06:00 Iv Access IV 02/13/23 23:59 DIRECTED [place] Sodium Chloride 0 ml 01/19/23 06:00 Normal Saline Flush 10 Ml Syr IV 02/13/23 23:59 PRN PRN Sodium Chloride 0 ml 01/19/23 06:00 Normal Saline 10 Ml Vial IJ 02/13/23 23:59 DIRECTED PRN Sterile Water 0 ml 01/19/23 06:00 Water,Injection,Sterile 10 Ml Vial IJ 02/13/23 23:59 DIRECTED PRN PFSH Active Problems Active Problems: Problem Status Onset Code Elevated PSA R97.20 Incomplete emptying of bladder R33.9 Gross hematuria R31.0 Alcohol abuse 11/02/12 F10.10 Benign prostatic hyperplasia N40.0 Essential hypertension I10 Hyperlipidemia E78.5 Spinal stenosis M48.00 Obesity E66.9 Medical History Medical History Diverticulosis COVID-19 05/2021-URI symptoms, breakthrough-fully immunized, treated with Paxlovid Surgical History Surgical History History of colonoscopy History of umbilical hernia repair S/P cataract extraction Status post lumbar spine surgery for decompression of spinal cord Tobacco Smoking/Tobacco Use Status: Former Tobacco Use Passive smoking exposure: No Alcohol Alcohol Intake: current Alcohol intake frequency: 3 or more drinks per day Alcohol type: wine Counseling provided: provider counseling Substance Use Substance use: Never Substance use type: does not use Counseling provided: none Vital Signs and Lab Results Vital Signs Most Recent Vital Signs in EMR: Temp Pulse Resp BP Pulse Ox 36.7 C 103 H 20 147/81 H 95 01/19/23 07:56 01/19/23 07:56 01/19/23 07:56 01/19/23 07:56 01/19/23 07:56 Lab Results Blood Type / Crossmatch: No Data to Display Complete Blood Count: No Data to Display Complete Metabolic Panel: No Data to Display Liver Function Panel: No Data to Display Coagulation Panel: No Data to Display Cardiac Panel: No Data to Display Arterial Blood Gas: No Data to Display Venous Blood Gas: No Data to Display Pancreas Panel: No Data to Display Thyroid Panel: No Data to Display Infectious Disease: No Data to Display Blood Cultures: No Data to Display Toxicology Panel: No Data to Display Anesthesia Assessment and Plan Anesthesia History Personal History: No History of Anesthesia Complications Family History: No Family History of Anesthesia Complications Exercise Tolerance Exercise Tolerance: Metabolic Equivalents>4 Cardiac & Pulmonary Exam Cardiac Exam: Normal S1/S2 Heart Sounds Pulmonary Exam: Clear Bilateral Breath Sounds Implantable Cardiac Device Does patient have a Pacemaker or an ICD?: No Airway Exam Known Difficult Airway: No Mallampati Class: 3 Mouth Opening: Normal (> 3cm) Thyromental Distance: Greater than 3 cm Neck Range of Motion: Full ROM Neck Circumference: Normal Teeth Condition: Normal Dentition ASA Classification ASA Score: ASA 2 Emergency Case?: No NPO Status NPO Status: NPO Clears >2 hours, Solids >8 hours Anesthesia Plan Resuscitation Status: Full Code Anesthesia Technique: General Anesthesia Airway Planned: LMA Monitors Used: Standard Monitors Preoperative Comments:: 77 yo male for cysto/TURP. Sig PMHx: HTN, spinal stenosis (surgery was attempted, but decompression not completed due to risk), EtOH daily. former smoker.
[2023-01-19] MEDS: Lactated Ringers 1,000 ML 80 ML IV ×2 (08:14→13:43)
--- NOTE | 2023-01-19 08:51 | HPE_ITS ---
Date of service: 01/19/23 Time of Service: 08:51 Assessment and Plan Assessment and plan (1) Incomplete emptying of bladder: Status: Acute (2) Elevated PSA: Status: Acute Assessment and plan: We will move ahead with transurethral resection of the prostate. Ultimately, he should be able to discontinue his alpha blockers. He should be able to empty his bladder more efficiently, and hopefully his enuresis will decrease if not completely resolve. History of Present Illness History of Present Illness Chief Complaint: Urinary retention Narrative: This is a 77-year-old gentleman who initially presented to the emergency departm ent with gross hematuria. He was treated with antibiotics for suspected urinary tract infection. He ultimately was evaluated with a CT urogram which showed a distended bladder and bilateral hydronephrosis. A Lyman catheter was then placed. He had been having a 6 month history of enuresis prior to his catheter placement. He had been on tamsulosin for quite a few years. He does have a history of an elevated PSA. He had negative prostate biopsy back in 2008. He had a recent multiparameter prostate MRI that showed a low likelihood of prostate cancer. He is not interested in medical management of his lower urinary tract symptoms. He presents now for transurethral resection of the prostate. Review of Systems Narrative: No fevers or chills No vision change or dysphasia No diabetes or thyroid dysfunction No shortness of breath, cough or hemoptysis No chest pain or palpitations No nausea, vomiting, hepatitis, ulcers, jaundice No seizures, strokes or peripheral neuropathy No bleeding disorders or anemia Chronic back pain. No gout PFSH All Active Problems Elevated PSA (Acute) Negative prostate biopsy 2008 for 1 time elevated PSA. PSA returned to baseline after biopsy. Incomplete emptying of bladder (Acute) Gross hematuria (Acute) Alcohol abuse (Chronic 11/02/12) 05/2021-4 drinks/day Benign prostatic hyperplasia (Chronic) Essential hypertension (Chronic) Hyperlipidemia (Chronic) Spinal stenosis (Chronic) surgery Magnidottir 05/06 x 2; now disabled. Obesity (Chronic) Medical History Diverticulosis COVID-19 05/2021-URI symptoms, breakthrough-fully immunized, treated with Paxlovid Surgical History History of colonoscopy History of umbilical hernia repair S/P cataract extraction Status post lumbar spine surgery for decompression of spinal cord Family History Mother Personal history of malignant neoplasm Pancreatic Father Personal history of malignant neoplasm Lung Brother Dementia Daughter No problems noted. Daughter No problems noted. Social History Smoking/Tobacco Use Status: Former Tobacco Use Quit Date: 02/24/76 Tobacco: How many years used: 15 Smoking risk assessment performed?: Yes Alcohol Intake: current Alcohol Intake frequency: 3 or more drinks per day Alcohol type: wine Counseling provided: provider counseling Drug use: Never Substance use type: does not use Counseling provided: none Housing: house Number of Children: 2 Education Level: college Details: BS in Electrical [employer]. 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 Do you think of yourself as: straight/heterosexual Current gender identity: male What is your relationship status?: Panel score (0-1 are the most socially isolated patients): 1 Do you feel safe at home: Yes Additional Social history: unable to assess privately Meds Allergies and Home Medications Allergies Allergy/AdvReac Type Severity Reaction Status Date / Time thiopental Allergy Intermediate Skin Rash Verified 01/19/23 07:52 Home Medications Medication Instructions Recorded Confirmed Type multivitamin 1 ea PO DAILY 10/20/12 01/19/23 History omega-3 fatty acids-fish oil 684 1 ea PO DAILY 10/20/12 01/19/23 History mg-1,200 mg capsule,delayed release (One-Per-Day [place]-3) naproxen sodium 220 mg tablet 2 tab PO daily prn 12/09/13 01/19/23 History (Aleve) furosemide 40 mg tablet (Lasix) 40 mg PO DAILY #90 tab-caps 01/02/22 01/19/23 Rx pravastatin 40 mg tablet 40 mg PO DAILY #90 tab-caps 02/04/22 01/19/23 Rx losartan 100 mg tablet (Cozaar) 100 mg PO HS 02/11/22 01/19/23 History amlodipine 5 mg tablet 5 mg PO DAILY #90 tab-caps 02/21/22 01/19/23 Rx metoprolol succinate 25 mg 25 mg PO DAILY #90 tabs 05/22/22 01/19/23 Rx tablet,extended release 24 hr tamsulosin 0.4 mg capsule 0.4 mg PO HS #90 tabs 05/22/22 01/19/23 Rx Exam Const Nutritional Appearance: obese Neck Neck: normal visual inspection and supple Resp Effort & Inspection: normal respiratory effort Auscultation: clear to auscultation bilaterally Cardio Rate: regular rate Rhythm: regular rhythm GI Palpation: soft Other: lyman catheter in place Neuro General: patient alert, patient awake and patient oriented x3 Results Last Vital Signs Temp 36.7 C 01/19/23 07:56 Pulse 103 H 01/19/23 07:56 Resp 20 01/19/23 07:56 BP 147/81 H 01/19/23 07:56 Pulse Ox 95 01/19/23 07:56 Time Spent Time spent with Patient: <40 minutes Time was spent: other
[2023-01-19] MEDS: ceFAZolin 2 GM/50 ML BAG IVPB (09:39)
[2023-01-19] MEDS: Lidocaine 2% Jelly 6 ML SYR (09:55)
--- NOTE | 2023-01-19 10:49 | PROST_PTH ---
PATIENT: Ibrahima Parks LOC: U#:[id number] AGE/SX: 77/M ROOM: 208 RE01/19/[address]: Randall Clements MD : [id number] BED: A DIS: 01/20/2023 SPEC #: [id number] RECD: 01/19/23 13:13 STATUS: KERI REQ #: [id number] JOSLYN: 01/19/23 10:[address]: Randall Clements DEPT: Surgical Specimen RECD BY: Renate Garcia ENTERED: 01/19/23 13:14 SP TYPE: PROST OTHR DR: Rachel Taveras Tissues: 1 - PROSTATE CURRETTINGS Procedures: GROSS AND MICRO LEVEL 4 Comments: [id number]
--- NOTE | 2023-01-19 11:23 | ROE_ITS ---
Date of service: 01/19/23 Time of Service: : Operative Note Operative Note DATE OF PROCEDURE: 01/19/23 PRE-OP DIAGNOSIS: Urinary retention PROCEDURE: cystoscopy with TURP and vaporization of prostate SURGEON: Randall Clements ANESTHESIA TYPE: General LMA/ETT Refer to Anesthesia Record ESTIMATED BLOOD LOSS: 200 PATHOLOGY: other (prostate chips) COMPLICATIONS: None Patient was transported to: PACU Patient's condition: stable Implants: 24 Vietnamese coude tipped irrigating catheter with 30 cc sterile water in balloon Indications: This is a 77-year-old gentleman who has a history of incomplete bladder emptying, overflow incontinence and bilateral hydronephrosis. He has an indwelling catheter. He has failed medical management and he presents now for transurethral resection of the prostate. Findings: diffusely enlarged prostate Procedure Description: The patient was given preoperative antibiotics and brought to the operating room on 01/19/2023. After successful induction of general anesthesia without intubation, he was placed in the dorsal lithotomy position. His indwelling catheter was removed. His genitalia was prepped and draped. 2% Xylocaine jelly was instilled into the urethra. A 24 Vietnamese resectoscope s manjit was passed through the urethra into the bladder. The urethra and bladder were inspected using the visual obturator and a 30 degree lens. The pendulous, bulbar and membranous urethra showed no strictures. The prostatic urethra showed lateral lobe enlargement but there was no significant median lobe present. The bladder itself was moderately trabeculated with no diverticuli seen. No papillary or nodular bladder masses were seen. We then used an People[employer] resectoscope and bipolar cautery to perform transurethral resection of the prostate from the bladder neck out to the verumontanum. The depth of the resection was down to the prostatic capsule. All resected tissue was evacuated and sent to pathology for permanent section. We then switched over to the vaporization button and vaporized the remaining prostate tissue down to the capsule. We also utilized the coagulation current to cauterize any blood vessels. At the completion of the procedure, the prostatic fossa appeared open and there was no arterial bleeding visualized. The bladder was filled with irrigant. The resectoscope was removed. A 24 Vietnamese hematuria catheter was passed through the urethra into the bladder. The catheter balloon was inflated with 30 cc of sterile water. Continuous bladder irrigation with saline was begun. Traction was placed on the catheter balloon and hand irrigation was performed until the irrigant became transparent. The patient tolerated this procedure well with no complications.
--- NOTE | 2023-01-19 11:36 | W.ANESPOSTOP ---
Postoperative Evaluation Date, Time and Location Date Performed: 01/19/23 Time Performed: 11:36 Patient Location: Day Surgery Unit Vital Signs Most Recent Imported Vital Signs: Most Recent Vital Signs Temp Pulse Resp BP Pulse Ox 36.5 C 73 18 131/73 96 01/19/23 11:30 01/19/23 11:30 01/19/23 11:30 01/19/23 11:30 01/19/23 11:30 Pain Score Most Recent Pain Score: Most Recent Pain Score Pain Level 0 01/19/23 11:30 Assessment Mental Status: Awake (Alert & Oriented to Patient Baseline) Airway and Respiratory Function: Patent airway with normal (patient baseline) respiratory exam Cardiovascular Function: Hemodynamically Stable Hydration Status: Adequately Hydrated Nausea & Vomiting: No Nausea or Vomiting Pain: Pain is tolerable per patient Peripheral Nerve Block: Patient did not receive a nerve block
[2023-01-19 13:39] LABS: HCT 32.2 % (40.0-50.0); HGB 10.9 g/dL (13.5-17.5)
[2023-01-19] MEDS: Acetaminophen 325 MG TAB 650 MG PO (13:43)
[2023-01-19] MEDS: ceFAZolin 1 GM/50 ML BAG IVPB ×2 (13:43→20:05)
[2023-01-19] MEDS: Ketorolac 15 MG/ML VIAL IVP (16:29)
[2023-01-19] MEDS: Normal Saline Flush 10 ML SYR IV (16:29)
[2023-01-19] MEDS: Docusate Sodium 100 MG CAP PO (20:05)
[2023-01-19] MEDS: Pravastatin 40 MG TAB PO (20:05)
[2023-01-19] MEDS: Tamsulosin 0.4 MG CAPCR PO (22:25)
[2023-01-20 03:46] VITALS: BP 97/65; PULSE 90; RESP 18; TEMP 37.6; O2SAT 99
[2023-01-20] MEDS: ceFAZolin 1 GM/50 ML BAG IVPB (06:09)
[2023-01-20 07:25] LABS: Absolute Eosinophil Count 0.01 10^3/uL (0.0-0.7); Absolute Lymphocyte Count 0.65 10^3/uL (1.2-3.4); Absolute Monocyte Count 0.36 10^3/uL (0.1-0.8); Absolute Neutrophil Count 5.54 10^3/uL (1.2-6.7); Eosinophils % 0.1; HCT 25.7 % (40.0-50.0); HGB 8.7 g/dL (13.5-17.5); Immature Grans % 4.4; Lymphocytes % 9.5; MCH 33.1 pg (27.0-33.0); MCHC 33.9 % (32.0-36.0); MCV 98 fL (80-95); MPV 8.5 fL (8.0-11.0); Monocytes % 5.2; Neutrophils % 80.8; Platelet Count 142 10^3/uL (130-400); RBC 2.63 10^6/uL (4.36-5.78); RDW 12.5 % (11.8-14.1); RDW-SD 44.3 fL; WBC 6.86 10^3/uL (4.4-10.8)
--- NOTE | 2023-01-20 07:36 | W.PM.PROGNOT ---
Date of Service Date of service: 01/20/23 Time of Service: 07:36 Assessment and Plan Assessment and plan (1) Incomplete emptying of bladder: Status: Acute Assessment and plan: His blood pressure remains a bit low, but he is completely asymptomatic. We will see what this morning's labs look like. I would discontinue his bladder irrigation and IV fluid. As long as he does not need the bladder irrigation restarted, as long as his labs look okay and as long as he is not symptomatic of hypotension, he should be able to go home later today. We will plan to leave his catheter in place and give him a voiding trial either later this week or early next week. Subjective Subjective Interval history since last seen: Chief complaint: Postoperative day #1 The patient remained comfortable overnight. Yesterday, when he came up to the floor from the recovery room, his catheter clotted off and he required hand irrigation. He has had no clot retention since then. He is able to tolerate oral nutrition and medications. He has no lightheadedness or dizziness. His postoperative hemoglobin done yesterday afternoon was appropriate Exam Narrative Exam Narrative: He he appears comfortable His vital signs are documented elsewhere His bladder irrigation is light pink. I hand irrigated his catheter and I obtained is no blood clots He is awake and alert Objective Last Vital Signs Temp 37.6 C H 01/20/23 03:46 Pulse 90 01/20/23 03:46 Resp 18 01/20/23 03:46 BP 97/65 L 01/20/23 03:46 Pulse Ox 99 01/20/23 03:46 Laboratory Results - last 24 hr 01/19/23 01/20/23 13:30 07:06 WBC 6.86 RBC 2.63 L Hgb 10.9 L 8.7 L D Hct 32.2 L 25.7 L MCV 98 H MCH 33.1 H MCHC 33.9 RDW 12.5 Plt Count 142 MPV 8.5 Immature Gran % 4.4 Neutrophils % 80.8 Lymphocytes % 9.5 Monocytes % 5.2 Eosinophils % 0.1 Basophils % 0.0 Nucleated RBC % 0.0 Absolute Neutrophils 5.54 Absolute Lymphocytes 0.65 L Absolute Monocytes 0.36 Absolute Eosinophils 0.01 Absolute Basophils 0.00 Time Spent with Patient Time Spent with Patient: 25-34 minutes Time was spent: preparing to see the patient(eg.review tests), obtaining and/or reviewing separately otained hiistory and counseling the patient
[2023-01-20 07:46] LABS: ALT 16 U/L (16-63); AST 32 U/L (15-37); Albumin 2.5 g/dL (3.4-5.0); Alkaline Phosphatase 50 U/L (46-116); Anion Gap 4.9 mmol/L (3-11); BUN 17 mg/dL (7-18); Bilirubin, Total 0.4 mg/dL (0.2-1.0); CO2 30.1 mmol/L (21.0-32.0); CREATININE 0.9 mg/dL (0.70-1.30); Calcium 8.2 mg/dL (8.5-10.1); Chloride 101 mmol/L (98-107); Estimated GFR 86.88 (mL/min/1.73m2); Glucose 116 mg/dL (74-106); Sodium 136 mmol/L (136-145); Total Protein 5.8 g/dL (6.4-8.2)
--- NOTE | 2023-01-20 07:57 | W.PM.DS.N ---
Date of service: 01/20/23 Time of Service: 11:55 DS: Diagnosis Discharge Diagnosis (1) Incomplete emptying of bladder: Status: Acute Discharge Plan Disposition Patient Disposition: Home Condition: Good Discharge Details Reason For Visit: cystoscopy with TURP Admit Date/Time: 01/19/23 07:15 Admit Provider: Randall Clements Attending Provider: Randall Clements Primary Care Provider: Rachel Taveras Hospital Course Hospital Course: The patient was admitted and taken to the operating room on 01/19/2023. He underwent cystoscopy and transurethral resection of the prostate under general anesthesia. Following the surgery, continuous bladder irrigation was maintained. When the patient was transferred from the recovery room up to the floor, he developed clot retention which was managed with vigorous hand irrigation. We checked a hemoglobin at that point and the results seemed appropriate for the expected blood loss from his procedure. The continuous bladder irrigation that was then resumed. Overnight, the irrigation remained clear. No clots were found when I hand irrigated the catheter on postoperative day #1. The continuous bladder irrigation was discontinued and the urine output remained clear. His hemoglobin was 8.7 and his serum creatinine was normal. His blood pressure was in the 90s systolically overnight but improved to the 120s systolically by the time of discharge. He had no lightheadedness or dizziness. He was able to tolerate oral medications and nutrition. The patient has a history of significant alcohol use, so he was monitored for signs and symptoms of alcohol withdrawal during his hospital stay. No doses of benzodiazepine were required. He is being discharged to home on postoperative day #1. Home Meds and New Rx's Prescriptions: Continued multivitamin 1 EACH tablet 1 ea PO DAILY One-Per-Day [place]-3 1 EACH capsule,delayed release(DR/EC) 1 ea PO DAILY naproxen sodium [Aleve] 220 MG tablet 2 tab PO daily prn furosemide [Lasix] 40 mg tablet 40 mg PO DAILY Qty: 90 3RF pravastatin 40 mg tablet 40 mg PO DAILY Qty: 90 3RF amlodipine 5 mg tablet 5 mg PO DAILY Qty: 90 3RF metoprolol succinate 25 mg tablet extended release 24 hr 25 mg PO DAILY Qty: 90 4RF losartan [Cozaar] 100 mg tablet 100 mg PO HS Discontinued tamsulosin 0.4 mg capsule 0.4 mg PO HS Qty: 90 4RF Discharge Instructions Additional Instructions: Follow-up later this week or early next week for a voiding trial Follow-up appointment in about 2 weeks to discuss pathology results and to have a [id number] ultrasound in my office Lyman catheter to drainage bag (either leg bag or large drainage bag based on patient's comfort level) No lifting over 10 pounds until follow-up visit Okay to shower Activity:: no lifting over 10 pounds Equipment/Supplies:: lyman to drainage bag Diet:: As Tolerated Discharge Orders Discharge Orders: Discharge Order (Routine); Ordered 01/20/23 Ordered By: Randall Clements DS: Summary Time Spent with Patient providing and/or coordinating discharge services: Less than 30 minutes Status at Discharge Functional status at discharge: independent ambulation Overall status at discharge: patient is progressing back to baseline Mental Status: mental status grossly normal Speech and Movement: speech and movement normal Mood: congruent mood Affect: normal affect Exam Narrative Exam Narrative: At the time of discharge, he looks comfortable His vital signs are documented elsewhere His chest wall motion is normal. He is not short of breath at rest. His abdomen is soft with no mass The urine is light pink and transparent in his catheter drainage bag He is awake and alert Psych Mental Status: mental status grossly normal Speech and Movement: speech and movement normal Mood: congruent mood Affect: normal affect DS: Data Vitals/I&O Vitals and I&O: Vital Signs Temperature 37.6 C H 01/20/23 03:46 Temperature Source Tympanic 01/20/23 03:46 Pulse 90 01/20/23 03:46 Pulse Rhythm Regular 01/19/23 23:03 Respiratory Rate 18 01/20/23 03:46 Respiratory Effort Normal 01/19/23 23:03 Respiratory Depth Normal 01/19/23 23:03 Respiratory Pattern Normal 01/19/23 23:03 Blood Pressure 97/65 L 01/20/23 03:46 Pulse Oximetry 99 01/20/23 03:46 Oxygen Delivery Method Room Air 01/19/23 15:02 Oxygen Flow Rate 0 01/19/23 15:02 Pain Level 0 01/19/23 14:23 Intake & Output 01/19/23 01/19/23 01/20/23 11:59 23:59 11:59 Intake Total 600 / 919.333 319.333 / 919.333 Output Total 8500 / 8500 Balance 600 / -7580.667 -8180.667 / -7580.667 Weight 91.1 kg Intake: IV 600 / 919.333 319.333 / 919.333 Output: Urine 8500 / 8500 Other: Urine Color Soares Mcdermott Mcdermott Urine Appearance Clear Hematuria Comment Changing lyman irrigation bags when they are empty. Emesis Description None Data Completed and Pending Labs on day of discharge: Labs from last 24 hours 01/20/23 01/19/23 07:06 13:30 WBC 6.86 RBC 2.63 L Hgb 8.7 L D 10.9 L Hct 25.7 L 32.2 L MCV 98 H MCH 33.1 H MCHC 33.9 RDW 12.5 Plt Count 142 MPV 8.5 Immature Gran % 4.4 Neutrophils % 80.8 Lymphocytes % 9.5 Monocytes % 5.2 Eosinophils % 0.1 Basophils % 0.0 Nucleated RBC % 0.0 Absolute Neutrophils 5.54 Absolute Lymphocytes 0.65 L Absolute Monocytes 0.36 Absolute Eosinophils 0.01 Absolute Basophils 0.00 Sodium 136 Potassium 4.0 Chloride 101 Carbon Dioxide 30.1 Anion Gap 4.9 BUN 17 Creatinine 0.9 Est GFR (CKD-EPI 2020) 86.88 Glucose 116 H Calcium 8.2 L Total Bilirubin 0.4 AST 32 ALT 16 Alkaline Phosphatase 50 Total Protein 5.8 L Albumin 2.5 L PFSH All Active Problems Elevated PSA (Acute) Negative prostate biopsy 2008 for 1 time elevated PSA. PSA returned to baseline after biopsy. Incomplete emptying of bladder (Acute) Gross hematuria (Acute) Alcohol abuse (Chronic 11/02/12) 05/2021-4 drinks/day Benign prostatic hyperplasia (Chronic) Essential hypertension (Chronic) Hyperlipidemia (Chronic) Spinal stenosis (Chronic) surgery Magnidottir 05/06 x 2; now disabled. Obesity (Chronic) Medical History Diverticulosis COVID-19 05/2021-URI symptoms, breakthrough-fully immunized, treated with Paxlovid Surgical History History of colonoscopy History of umbilical hernia repair S/P cataract extraction Status post lumbar spine surgery for decompression of spinal cord Family History Mother Personal history of malignant neoplasm Pancreatic Father Personal history of malignant neoplasm Lung Brother Dementia Daughter No problems noted. Daughter No problems noted. 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 Do you think of yourself as: straight/heterosexual Current gender identity: male What is your relationship status?: Panel score (0-1 are the most socially isolated patients): 1 Do you feel safe at home: Yes Additional Social history: unable to assess privately Time Spent with Patient Time Spent with Patient: <45 minutes Time was spent: preparing to see the patient(eg.review tests) and counseling the patient
[2023-01-20] MEDS: Docusate Sodium 100 MG CAP PO (08:57)
[2023-01-20] MEDS: Omega-3 Fatty Acids 1000 MG CAP PO (08:57)
[2023-01-20] MEDS: Folic Acid 1 MG TAB PO (08:57)
[2023-01-20] MEDS: Thiamine 100 MG TAB PO (08:57)
[2023-01-20] MEDS: amLODIPine 5 MG TAB PO (08:57)
[2023-01-20] MEDS: Metoprolol CR 25 MG TABCR PO (08:57)
[2023-01-20] MEDS: Multivitamin TAB 1 TAB PO (08:57)
[2023-01-20] MEDS: Furosemide 40 MG TAB PO (08:57)
--- NOTE | 2023-01-20 10:02 | PDOC.CMIN ---
Date of service: 01/20/23 Time of Service: 10:02 Care Management Initial Assmt Initial Assessment REASON FOR HOSPITALIZATION:: urinary retention PREVIOUS FUNCTIONAL STATUS/SOCIAL/FAMILY SUPPORTS:: Ibrahima lives in [place] with his Melissa. They have 2 daughters; one daughter is a nurse and the other is a high school football coach/teacher. Both parents admitted to being very proud of their daughters. 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 He is independent at baseline and does not receive any community services. CURRENT FUNCTIONAL STATUS:: Geovanni was sitting up in bed when CM met with him. His was present and they both engaged easily with CM. Geovanni stated that his plan was to return home and that his discharge was imminent. They did not identify the need for any services at home. ADVANCE DIRECTIVES:: On file. Melissa [facility] Has patient been provided with info about the portal/API?: Yes Did the patient sign up for the portal?: Yes CODE STATUS:: Full Code INSURANCE COVERAGE / FINANCIAL ISSUES:: [employer] Medicare Replacement CURRENT HOME/COMMUNITY SERVICES/EQUIPMENT:: will be discharged home with a lyman catheter which he has had in the past. PRIMARY CARE PHYSICIAN:: Rachel Morales POTENTIAL DISCHARGE NEEDS:: follow up with PCP and discharge plan of care PATIENT/FAMILY EDUCATION NEEDS:: Review discharge instructions, limitations, activity, follow up plan, discuss Ask Me Three TRANSPORTATION:: via private vehicle with family PLAN:: Anticipate Ibrahima will be discharged home with no new services. He will follow up with his PCP and plan of care and transport with family. CM will follow and continue to support discharge planning considerations. PFSH All Active Problems Elevated PSA (Acute) Negative prostate biopsy 2009 for 1 time elevated PSA. PSA returned to baseline after biopsy. Incomplete emptying of bladder (Acute) Gross hematuria (Acute) Alcohol abuse (Chronic 11/02/12) 05/2021-4 drinks/day Benign prostatic hyperplasia (Chronic) Essential hypertension (Chronic) Hyperlipidemia (Chronic) Spinal stenosis (Chronic) surgery Magnidottir 05/06 x 2; now disabled. Obesity (Chronic) Medical History Diverticulosis COVID-19 05/2021-URI symptoms, breakthrough-fully immunized, treated with Paxlovid Surgical History History of colonoscopy History of umbilical hernia repair S/P cataract extraction Status post lumbar spine surgery for decompression of spinal cord Family History Mother Personal history of malignant neoplasm Pancreatic Father Personal history of malignant neoplasm Lung Brother Dementia Daughter No problems noted. Daughter No problems noted. 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 Do you think of yourself as: straight/heterosexual Current gender identity: male What is your relationship status?: Panel score (0-1 are the most socially isolated patients): 1 Do you feel safe at home: Yes Additional Social history: unable to assess privately
[2023-01-20 10:46] VITALS: BP 126/75; PULSE 74; RESP 18; TEMP 37; O2SAT 95
--- NOTE | 2023-01-20 16:12 | PDOC.CMDIS ---
Date of service: 01/20/23 Time of Service: 16:12 LACE Index Scoring Tool Questions: Length of Stay (in days): 1 Was the patient admitted via the E.D.?: No E.D. Visits: 1 Answers: Total Score: 2 Risk of Readmission: Low Risk Care Management Discharge Plan Reason for Hospitalization: urinary retention Discharge Plan: Ibrahima will be discharged home with no new services. He will follow up with his PCP and plan of care and transport with family. Patient/Family Education Needs: Review discharge instructions, limitations, activity, follow up plan, discuss Ask Me Three
--- NOTE | 2023-01-20 16:17 | CHAPLAIN ---
Ibrahima was resting in bed when I visited. His and daughter were with him. He is a member of the [employer] in [place], but declined my offer to let the scientologist know he is here. He said his is more active in the scientologist than he is. I explained my role and offered support. Ibrahima was discharged later in the day.
== END 2023-01-20 12:58 | disposition home or self-care (01) ==
LOC: MS 01-20 12:12 → PDS 01-20 12:13 → MS 01-20 12:13
PROVIDERS: Admitting Provider Urology; PCP Family Medicine; Visit Provider Urology
PROC: 0VT08ZZ Resection of Prostate, Via Natural or Artificial Opening Endoscopic (ICD-10-PCS; CPT 52601; principal; 2023-01-19 09:15)
DX: N40.1 Benign prostatic hyperplasia with lower urinary tract symptoms (principal); R33.9 Retention of urine, unspecified; R31.0 Gross hematuria; R33.8 Other retention of urine; R97.20 Elevated prostate specific antigen [PSA]; F10.10 Alcohol abuse, uncomplicated; I10 Essential (primary) hypertension; E78.5 Hyperlipidemia, unspecified; M48.00 Spinal stenosis, site unspecified; E66.9 Obesity, unspecified; Z68.28 Body mass index [BMI] 28.0-28.9, adult; N32.89 Other specified disorders of bladder
CPT/HCPCS: 52601; 36415; 80053; 88305; 96361; 96365; 96367; 96375; 85014; 85018; 85025; G0378; J0690; J1100; J1885; J2405; J2704; J3010

== ENCOUNTER → 2023-01-26 07:49 | Outpatient (BNVA) | payer MEDICARE, SELFPAY | PROVIDERS: PCP Family Medicine; Referring Provider Family Medicine; Visit Provider Nurse Practitioner Gerontology | DX: N40.0 Benign prostatic hyperplasia without lower urinary tract symptoms (principal); R31.0 Gross hematuria; R33.8 Other retention of urine; R97.20 Elevated prostate specific antigen [PSA] ==

== ENCOUNTER → 2023-02-03 10:52 | Outpatient (BNVA) | payer MEDICARE, SELFPAY | PROVIDERS: PCP Family Medicine; Referring Provider Family Medicine; Visit Provider Urology | DX: R33.9 Retention of urine, unspecified (principal); R97.20 Elevated prostate specific antigen [PSA] | CPT/HCPCS: 76775 ==

== ENCOUNTER 2023-02-06 08:26 | Outpatient (CLI) | payer MEDICARE, SELFPAY ==
--- NOTE | 2023-02-06 08:15 | RT.EKG_ITS ---
APPROVED REPORT Exam: Resting ECG Reason for Exam: hypertension Patient Location: O HR:102 bpm ECG Measurements Heart Rate 102 AXIS ID 177 P 12 QRSd 105 QRS -20 QT 331 T -2 QTc 432 Conclusion Sinus tachycardia...rate> 99 Inferior infarct, age indeterminate...Q>35mS, T neg, II III aVF I have reviewed and interpreted ECG and agree with software generated interpretation.
== END 2023-02-06 08:27 | disposition home or self-care (01) ==
PROVIDERS: PCP Family Medicine; Visit Provider Family Medicine
DX: I10 Essential (primary) hypertension (principal)
CPT/HCPCS: 93010

== ENCOUNTER → 2023-02-09 12:03 | Outpatient (CLI) | payer MEDICARE, SELFPAY | PROVIDERS: PCP Family Medicine; Visit Provider Family Medicine | DX: I10 Essential (primary) hypertension (principal); R00.0 Tachycardia, unspecified; R94.31 Abnormal electrocardiogram [ECG] [EKG] | CPT/HCPCS: 93306 ==

== ENCOUNTER 2023-03-03 14:24 | Emergency (ER) | payer MEDICARE, SELFPAY ==
--- NOTE | 2023-03-03 14:28 | W.ED.GENAD ---
HPI General VELASQUEZ: 4 Date/Time Provider Initiated Documentation: 03/03/23 14:28. HPI Narrative: MDM This is an overall very well-appearing normothermic and not tachycardic 77-year-old not anticoagulated male with loss of balance and head strike and laceration for which patient will undergo CT head, primary closure with kellie, and update of tetanus status. Primary survey intact. Reassuring shock index. No hypoxia and clear and equal breath sounds so my suspicion is low for pneumothorax. Furthermore, no signs of trauma to the chest so will defer chest x-ray. No neck pain so will defer CT cervical spine. Patient has been ambulatory since his fall so my suspicion is low for hip fracture. No pain to bilateral upper extremities so no indication for plain films. Given no preceding syncope nor chest pain my suspicion is low for PE and ACS I did not obtain an ECG. Patient's scalp, forearm and right hand lacerations were cleaned by emergency department [employer] Tima. 4:[address] Corado radiology. Patient had a reassuring CT scan however there were findings suspicious at the base of the skull for the possibility of metastatic disease. Dr. Corado advised a bone scan. I asked health coordinator Kenya to have the patient seen next week in the setting of his CT concerning for the possibility of metastatic disease for which he will benefit from a bone scan. Patient and his and daughter and I discussed return to the ED for any foul-smelling drainage streaking signs of infection or fevers. Chronic conditions affecting the care of the patient: N/A History obtained from an outside historian: Patient's External record review: N/A Medications: Tetanus immunization Social determinants of health affecting disposition: N/A Management discussed with: Dr. Corado Treatment/interventions considered: N/A Response to therapies provided: N/A HPI This is a 77-year-old male arrived to the emergency department via private vehicle following a fall. Patient reports that just prior to arrival he was standing up from his chair. He reported that he leaned too far over and fell forward into a fireplace landing on a potting fixture. He is not anticoagulated. He has been ambulatory since his fall. He sustained a laceration to the right-hand side of his scalp. He denies preceding chest pain nausea vomiting and dizziness. No nausea no vomiting today. He was in his usual state of health prior to this fall. No neck pain. No loss of consciousness. Patient denies routine tobacco or illicits but drinks at noon and 5 PM. He does not report shakes if he does not drink. Exam General: Well-appearing in no acute distress speaking in complete sentences. Head: Normocephalic. On the right frontal scalp there is an approximately 4 cm laceration with minus venous oozing. No hemotympanum bilaterally. Eye:[Pupils equal, round reactive to light.] Extraocular eye movements intact. No conjunctival injection. No scleral icterus. Ear, nose, mouth, throat: Grossly normal inspection. Normal voice, handling secretions normally. Neck: Trachea midline. Cardiovascular: Well-perfused distal extremities. Respiratory: Nonlabored respiration. Clear lungs bilaterally. Gastrointestinal: Nondistended abdomen. Musculoskeletal: On the ulnar surface of the right distal forearm there is a superficial approximately 1 x 1 cm abrasion. Just distally on the ulnar surface of the right hand there is a small superficial approximately 1 cm laceration. Skin: Normal for age and race, grossly normal temperature and turgor. No acute rash. Neurologic: Alert and appropriate, no apparent acute deficits. GCS 15. Psychiatric: Mood and manner are appropriate. Grooming and personal hygiene are appropriate. Related Data Home Medications Medication Instructions Recorded Confirmed multivitamin 1 ea PO DAILY 10/20/12 03/03/23 omega-3 fatty acids-fish oil 684 1 ea PO DAILY 10/20/12 03/03/23 mg-1,200 mg capsule,delayed release (One-Per-Day [place]-3) naproxen sodium 220 mg tablet 2 tab PO daily prn 12/09/13 03/03/23 (Aleve) amlodipine 5 mg tablet 5 mg PO DAILY #90 tab-caps 02/21/22 03/03/23 pravastatin 40 mg tablet 40 mg PO DAILY #90 tab-caps 01/30/23 03/03/23 furosemide 40 mg tablet (Lasix) 40 mg PO DAILY #90 tab-caps 02/17/23 03/03/23 losartan 100 mg tablet (Cozaar) 100 mg PO HS #90 tabs 02/17/23 03/03/23 metoprolol succinate 50 mg 25 mg PO DAILY 03/03/23 03/03/23 tablet,extended release 24 hr Previous Rx's Medication Instructions Recorded amlodipine 5 mg tablet 5 mg PO DAILY #90 tab-caps 02/21/22 pravastatin 40 mg tablet 40 mg PO DAILY #90 tab-caps 01/30/23 furosemide 40 mg tablet (Lasix) 40 mg PO DAILY #90 tab-caps 02/17/23 losartan 100 mg tablet (Cozaar) 100 mg PO HS #90 tabs 02/17/23 Allergies Allergy/AdvReac Type Severity Reaction Status Date / Time thiopental Allergy Intermediate Skin Rash Verified 03/03/23 14:38 PFSH All Active Problems (Updated 03/03/23 @ 16:13 by Geovanni Méndez MD) Abnormal CT of brain (Acute) Laceration of scalp (Acute) Hx of falling (Acute) Immunization, tetanus-diphtheria (Acute) Abnormal electrocardiography (Acute 01/2023) Echocardiogram of left ventricular normal size wall thickness normal. LVEF estimated at 70%. No segmental wall motion abnormalities. Right ventricle is normal size. Right ventricle systolic function normal. Peak right ventricular systolic pressure was 22 mmHg. No hemodynamically significant valvular disease. Sinus tachycardia (Acute) Gross hematuria (Acute) Alcohol abuse (Chronic 11/02/12) 05/2021-4 drinks/day Benign prostatic hyperplasia (Chronic) s/p TURP 12/2022 Essential hypertension (Chronic) Hyperlipidemia (Chronic) Spinal stenosis (Chronic) surgery [place] 05/06 x 2; now disabled. Obesity (Chronic) Medical History (Updated 03/03/23 @ 16:13 by Geovanni Méndez MD) Elevated PSA Negative prostate biopsy 2008 for 1 time elevated PSA. PSA returned to baseline after biopsy. Negative pathology on TURP 2022 Diverticulosis COVID-19 05/2021-URI symptoms, breakthrough-fully immunized, treated with Paxlovid Surgical History (Updated 02/06/23 @ 08:17 by Rachel Taveras MD) S/P TURP (12/2022) emergent due to bilateral hydronephrosis History of colonoscopy History of umbilical hernia repair S/P cataract extraction Status post lumbar spine surgery for decompression of spinal cord Family History Mother Personal history of malignant neoplasm Pancreatic Father Personal history of malignant neoplasm Lung Brother Dementia Daughter No problems noted. Daughter No problems noted. 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 Do you think of yourself as: straight/heterosexual Current gender identity: male What is your relationship status?: Panel score (0-1 are the most socially isolated patients): 1 Additional Social history: unable to assess privately but pt's very supportive and pt appears to rely on to answer questions appropriately as he is CHIGNIK LAGOON. Procedures Laceration Laceration 1: Site: scalp Side (If applicable): right Size (cm): 4 Description: linear Depth: simple, single layer (Laceration does not violate the galea) Local Anesthetic: other anesthetic (Primary survey intact.) Pre-repair: wound explored and irrigated extensively (Emergency department [employer] Tima irrigated the wound extensively) Medical Decision Making Quality:[facility] Health Related Social Needs: No Data to Display Discharge Plan Disposition Patient Disposition: Home Discharge Details Clinical Impression: Immunization, tetanus-diphtheria, Hx of falling, Laceration of scalp, Abnormal CT of brain Primary Care Provider: Rachel Taveras ED Provider: Geovanni Méndez Home Meds and New Rx's Prescriptions: Continued multivitamin 1 EACH tablet 1 ea PO DAILY One-Per-Day [place]-3 1 EACH capsule,delayed release(DR/EC) 1 ea PO DAILY naproxen sodium [Aleve] 220 MG tablet 2 tab PO daily prn amlodipine 5 mg tablet 5 mg PO DAILY Qty: 90 3RF pravastatin 40 mg tablet 40 mg PO DAILY Qty: 90 3RF furosemide [Lasix] 40 mg tablet 40 mg PO DAILY Qty: 90 3RF Hold Instructions: Changed by Provider losartan [Cozaar] 100 mg tablet 100 mg PO HS Qty: 90 3RF metoprolol succinate 50 mg tablet extended release 24 hr 25 mg PO DAILY Discharge Instructions Additional Instructions: You were seen in the emergency department for your fall. Your CAT scan showed no sign of any bleeding in your head. As we discussed, your CAT scan did show some abnormalities in the bones at the base of your head concerning for the possibility of metastatic disease for which radiology recommended a bone scan. Please follow-up with your primary care provider touch base about the possibility of a bone scan next week. Your laceration was closed with kellie. Please return to the emergency department go to urgent care or follow-up with your primary care provider in 1 week to have your kellie removed. As we discussed, if you develop any foul-smelling drainage from your wound if you develop any fevers any streaking signs of infection or any pus from your wound please return immediately to the emergency department. For your pain please take medications as follows: 1. Take acetaminophen (Tylenol), 1,000 mg (two 500 mg tabs) every 6 hours Discharge Data Discharge Date/Time-TO BE ENTERED AT DEPARTURE: 03/03/23 16:21
--- NOTE | 2023-03-03 14:30 | DI.CT_ITS ---
Exam(s) CT HEAD WO EXAM: CT HEAD WO CLINICAL HISTORY: History of fall scalp laceration. TECHNIQUE: Imaging Protocol: Axial computed tomography images with coronal and sagittal reformatted images were created and reviewed COMPARISON: No exams were available for comparison FINDINGS: Ventricles and Extra axial spaces: Normal in size and morphology for the patient's age. Hemorrhage: None. Cerebral parenchyma: There are areas of decreased attenuation in the white matter consistent with chr onic microvascular ischemic disease. Midline shift: None. Brainstem/Cerebellum: Normal. Calvarium: The base of the skull has a somewhat mild feet in appearance. There also lucency seen in the occipital bone. The findings raise a question of metastatic disease. Visualized Paranasal sinuses/Mastoids: There are mucous retention cysts in the sphenoid sinuses. The remaining sinuses are clear as are the mastoid air cells. Soft Tissues: Unremarkable. IMPRESSION: 1. No acute intracranial process. 2. Findings suspicious for metastatic disease involving the skull the skull base. Bone scan should b e considered for further evaluation. 3. Findings were discussed with Dr. Méndez at 4:05 p.m. on 03/03/2023. RADIATION DOSE DELIVERED: 837.7mGy.cm Total DLP DATA REPOSITORY: All CT scans at this facility are submitted to the National Radiology Data Registry (NRDR) Dose Index Registry (DIR) with the [employer] (ACR). RADIATION OPTIMIZATION: All CT scans at this facility use at least one of these dose optimization te chniques: automated exposure control; mA and/or kV adjustment per patient size (includes targeted exa ms where dose is matched to clinical indication); or iterative reconstruction.
[2023-03-03 14:42] VITALS: BP 144/75; PULSE 75; RESP 18; TEMP 37.2; O2SAT 97
[2023-03-03] MEDS: Lidocaine/Epinephri/Tetracaine Topical Gel 3 ML TP (14:56)
--- NOTE | 2023-03-03 16:12 | NUR.NOTE ---
Referral faxed to [facility]/ Rachel Morales to set up an appointment within a week for reviewing abnormal Head CT and Pt needs a Bone Scan
== END 2023-03-03 16:21 | disposition home or self-care (01) ==
PROVIDERS: Emergency Provider Emergency Medicine; PCP Family Medicine
DX: S01.01XA Laceration without foreign body of scalp, initial encounter (principal); S50.811A Abrasion of right forearm, initial encounter; S60.511A Abrasion of right hand, initial encounter; W19.XXXA Unspecified fall, initial encounter; H91.90 Unspecified hearing loss, unspecified ear; Z79.899 Other long term (current) drug therapy; Z88.8 Allergy status to other drugs, medicaments and biological substances
CPT/HCPCS: 12002; 90715; 99284; 70450

== ENCOUNTER → 2023-03-05 02:08 | Outpatient (CLI) | payer MEDICARE, SELFPAY ==
[2023-03-05 09:17] LABS: Estimated GFR 76.56 (mL/min/1.73m2)
--- NOTE | 2023-03-05 13:15 | DI.NM_ITS ---
Exam(s) NM BONE SCAN WHOLE BODY GRP EXAM: NM BONE SCAN WHOLE BODY GRP CLINICAL HISTORY: f/u abnl ctlucency occipital bone,? mets ,R90.89. TECHNIQUE: Injected Dose: 25 mCi Tc-99m MDP Delayed Images: 2-3 hours. COMPARISON: MR MRI - LUMBAR SPINE WO CONTRAST from 09/19/[address] ABDOMEN PELVIS WO/W from 11/05/[address] HEAD WO from 03/03/2023 FINDINGS: There is no abnormal uptake seen in the acceptable bone to correspond to the multiple lucency seen in the skull on the recent CT scan. Also no abnormal focal radiopharmaceutical uptake in the skull bas e. Small focus of increased uptake in the left side of the cervical spine is most probably degenerative. There is no abnormal uptake seen in the thoracic spinal column. There is, however, linear uptake see n in the upper lumbar spine at what is probably L2-3 level. Advanced disc space narrowing at this le candy was evident on abdominal CT scan of 11/05/2022. No abnormal uptake evident in the right rib cage. Focus of increased uptake seen in the anterior lat eral aspect of left 9th or 10th ribs corresponds to healed fracture at this level on prior CT scan. There is no abnormal uptake in the bones of the pelvis and hips. The urinary bladder is distended, a s was evident on the prior CT scan and this is related to enlarged prostate gland. Bilateral hydrone phrosis and hydroureter was also evident on that October 2022 CT scan. There is uptake in the medial compartments of both knees which is degenerative. Also uptake in the l eft wrist at the 1st carpometacarpal joint, most probably degenerative. IMPRESSION: 1. No evidence of obvious osseous metastatic disease. There is no abnormal uptake in the skull to cor respond to findings on the bone windows of recent brain CT scan. Therefore these may be benign. Rec ommend repeat CT scan in 6 months. 2. Multiple other foci of increased uptake as explained individually above and most probably related to degenerative and posttraumatic findings. 3. The most impressive uptake appears to be at the L2-3 level in the lumbar spine. This may corresp ond to advanced degenerative disc disease changes as seen on the prior CT scan as uptake is sometimes seen when there are Modic type 1 sub endplate changes. However, I note that this patient has had a recent fall. Therefore I feel would be prudent to perform further imaging of the lumbosacral spine, starting with the set of plain films. Another approach would be for spine MRI to compared to the 201 4 MRI. DATA REPOSITORY:
== END ==
PROVIDERS: PCP Family Medicine; Visit Provider Family Medicine
DX: R90.89 Other abnormal findings on diagnostic imaging of central nervous system (principal)
CPT/HCPCS: 78306; 82565

== ENCOUNTER → 2023-03-06 01:19 | Outpatient (CLI) | payer MEDICARE, SELFPAY ==
--- NOTE | 2023-03-06 06:45 | DI.CT_ITS ---
Exam(s) CT CHEST W EXAM: CT CHEST W CLINICAL HISTORY: h/o abnl head ct,lesion,? mets or primary,R90.89 TECHNIQUE: Imaging Protocol: Axial computed tomography images with coronal and sagittal reformatted images were created and reviewed CONTRAST MATERIAL: Intravenous: Omnipaque 350Contrast volume:70 mL. COMPARISON: CT CT ABDOMEN PELVIS WO/W from 11/05/[address] HEAD WO from 03/03/2023 FINDINGS: The examination is limited due to patient motion artifact. Tracheobronchial tree: Patent where visualized. Pulmonary parenchyma: There is an 8 mm nodule in the left upper lobe. (Series 3, image 205). No foc al consolidating infiltrate is seen. There are dependent atelectatic changes in the lungs. Mediastinum and Bridgett: No dominant adenopathy or fluid collection. The esophagus is unremarkable. Thyroid gland: Unremarkable. Pleura: No effusion or pneumothorax. Heart: The heart is not dilated. Coronary artery calcification is present. No pericardial effusion. Aorta: Thoracic aorta non-dilated. Vascular calcification is present. Pulmonary arteries: Due to the timing of the bolus, the pulmonary arteries are inadequately opacified for evaluation of pulmonary emboli. Upper abdomen: Cholelithiasis. There are multiple hypodensities seen in the liver which appears sta ble and are consistent with cysts. Lymph nodes: Within normal limits. Bones: Within normal limits for the patient's age. Soft tissues: Unremarkable. IMPRESSION: 1. 8 mm left upper lobe pulmonary nodule. In low risk patients, follow-up examination in 6-12 months is recommended. For high risk patients (history of smoking or other risk factors), initial examinat ion follow-up is at 6-12 months and again at 18-24 months. (Ruma et al, 2017). 2. Cholelithiasis. 3. Stable hepatic cysts. RADIATION DOSE DELIVERED: 679.22mGy.cm Total DLP DATA REPOSITORY: All CT scans at this facility are submitted to the National Radiology Data Registry (NRDR) Dose Index Registry (DIR) with the [employer] (ACR). RADIATION OPTIMIZATION: All CT scans at this facility use at least one of these dose optimization te chniques: automated exposure control; mA and/or kV adjustment per patient size (includes targeted exa ms where dose is matched to clinical indication); or iterative reconstruction.
[2023-03-06] MEDS: Normal Saline - Diluent 50 ML VIAL IJ (08:38)
[2023-03-06] MEDS: Omnipaque 350 MG/ML 100 ML BTL IJ (08:38)
[2023-03-06] MEDS: Normal Saline Flush 10 ML SYR IVP (08:39)
== END ==
PROVIDERS: PCP Family Medicine; Visit Provider Family Medicine
DX: R91.8 Other nonspecific abnormal finding of lung field; K80.00 Calculus of gallbladder with acute cholecystitis without obstruction; N20.0 Calculus of kidney
CPT/HCPCS: 71260; J3490

== ENCOUNTER → 2023-05-01 10:23 | Outpatient (BNVA) | payer MEDICARE, SELFPAY | PROVIDERS: PCP Family Medicine; Referring Provider Family Medicine; Visit Provider Urology | DX: N40.0 Benign prostatic hyperplasia without lower urinary tract symptoms (principal); N13.30 Unspecified hydronephrosis | CPT/HCPCS: 76775 ==

== ENCOUNTER → 2023-06-02 14:18 | Outpatient (BNVA) | payer MEDICARE, SELFPAY | PROVIDERS: PCP Family Medicine; Referring Provider Family Medicine; Visit Provider Nurse Practitioner Gerontology ==

== ENCOUNTER 2023-06-02 15:54 | Outpatient (CLI) | payer MEDICARE, SELFPAY ==
[2023-06-02 15:48] LABS: HCT 34.7 % (40.0-50.0); HGB 12.2 g/dL (13.5-17.5); MCH 31.8 pg (27.0-33.0); MCHC 35.2 % (32.0-36.0); MCV 90 fL (80-95); MPV 8.1 fL (8.0-11.0); Platelet Count 283 10^3/uL (130-400); RBC 3.84 10^6/uL (4.36-5.78); RDW 14.6 % (11.8-14.1); RDW-SD 48.4 fL; WBC 5.66 10^3/uL (4.4-10.8)
[2023-06-02 16:08] LABS: BUN 11 mg/dL (7-18); CREATININE 0.8 mg/dL (0.70-1.30); Estimated GFR 90.02 (mL/min/1.73m2)
== END 2023-06-02 15:55 | disposition home or self-care (01) ==
LOC: LBO 06-04 15:55
PROVIDERS: PCP Family Medicine; Visit Provider Nurse Practitioner Gerontology
DX: R31.0 Gross hematuria (principal)
CPT/HCPCS: 36415; 51798; 81003; 84520; 85027; 87077; 99213; 82565; 87086; 87186

== ENCOUNTER 2023-10-20 02:55 | Outpatient (CLI) | payer MEDICARE, SELFPAY ==
[2023-10-20 14:02] LABS: ALT 32 U/L (16-63); AST 29 U/L (15-37); Albumin 3.8 g/dL (3.4-5.0); Alkaline Phosphatase 75 U/L (46-116); Bilirubin, Direct 0.2 mg/dL (0.0-0.2); Bilirubin, Total 0.71 mg/dL (0.2-1.0); Total Protein 7.7 g/dL (6.4-8.2)
== END 2023-10-20 02:56 | disposition home or self-care (01) ==
LOC: LBO 02:56
PROVIDERS: PCP Family Medicine; Visit Provider Family Medicine
DX: B35.1 Tinea unguium (principal)
CPT/HCPCS: 36415; 80076

== ENCOUNTER 2023-11-05 02:04 | Outpatient (CLI) | payer MEDICARE, SELFPAY ==
--- NOTE | 2023-11-05 13:11 | DI.CT_ITS ---
Exam(s) CT CHEST WO EXAM: CT CHEST WO CLINICAL HISTORY: f/u lung nodule,r91.1. TECHNIQUE: Imaging protocol: Axial computed tomography images were obtained and coronal and sagittal reformatted images were created and reviewed. CONTRAST MATERIAL: Noncontrast COMPARISON: CT CT CHEST W from 03/06/2023 FINDINGS: Pulmonary parenchyma: No consolidation. Stable 8 x 7 millimeter nodule in the anterior left upper lo be. Emphysema: None. Tracheobronchial tree: No mucous plugging. No bronchiectasis . Interstitial changes: None. Pleura: No effusion or pneumothorax. Heart: The heart is mildly dilated. The coronary arteries show mild calcifications. Aorta: Thoracic aorta non-dilated. Mild atherosclerotic changes. Lymph nodes: No enlarged lymph nodes. Bones: Degenerative changes are seen. No evidence of compression fracture. Upper abdomen: Cholelithiasis again noted. Soft tissues: Unremarkable. IMPRESSION: Stable 8 millimeter nodule in the left upper lobe. Further follow-up in 1 year could be considered (Farhat et al., 2017) RADIATION DOSE DELIVERED: 237.26mGy.cm Total DLP 237.26mGy.cm Total DLP DATA REPOSITORY: All CT scans at this facility are submitted to the National Radiology Data Registry (NRDR) Dose Index Registry (DIR) with the [employer] (ACR). RADIATION OPTIMIZATION: All CT scans at this facility use at least one of these dose optimization te chniques: automated exposure control; mA and/or kV adjustment per patient size (includes targeted exa ms where dose is matched to clinical indication); or iterative reconstruction.
== END 2023-11-05 02:24 ==
LOC: DI 02:04
PROVIDERS: PCP Family Medicine; Visit Provider Family Medicine
DX: R91.1 Solitary pulmonary nodule (principal)
CPT/HCPCS: 71250

== ENCOUNTER → 2023-11-27 09:37 | Outpatient (BNVA) | payer MEDICARE, SELFPAY | PROVIDERS: PCP Family Medicine; Referring Provider Family Medicine; Visit Provider Urology | DX: N40.0 Benign prostatic hyperplasia without lower urinary tract symptoms (principal); N13.30 Unspecified hydronephrosis; R31.9 Hematuria, unspecified; R97.20 Elevated prostate specific antigen [PSA] | CPT/HCPCS: 76775; 81003 ==

== ENCOUNTER 2023-12-02 19:04 | Emergency (ER) | payer MEDICARE, SELFPAY ==
[2023-12-02 19:05] VITALS: BP 162/90; PULSE 82; RESP 23; TEMP 36.6; O2SAT 93
[2023-12-02 19:24] LABS: Bilirubin Negative (Negative); Blood Trace-intact (Negative); Clarity Cloudy (Clear); Glucose Negative (Negative); Ketones Negative (Negative); Leukocyte Esterase Moderate (Negative); Nitrite Negative (Negative); Specific Gravity 1.015 (1.005-1.025); Urobilinogen 0.2 mg/dL (Up to 0.2)
--- NOTE | 2023-12-02 19:30 | DI.CT_ITS ---
Exam(s) CT CHEST/ABD/PEL W EXAM: CT CHEST/ABD/PEL W CLINICAL HISTORY: Falls, Back pain. TECHNIQUE: Imaging Protocol: Axial computed tomography images with coronal and sagittal reformatted images were created and reviewed CONTRAST MATERIAL: Intravenous: Omnipaque 350 Contrast volume:100 ml Oral: None COMPARISON: CT CT ABDOMEN PELVIS WO/W from 11/05/[address] CHEST WO from 11/05/2023 FINDINGS: CHEST: LUNGS: No new infiltrates nor pleural effusions. No lung contusion. Mild increased markings in depe ndent lung bases noted. No pneumothorax.. MEDIASTINUM: No evidence of sternal fracture or mediastinal hematoma. Visualized thyroid unremarkabl e.No hilar nor mediastinal adenopathy. CARDIAC: Heart size upper normal. No pericardial effusion.Caliber of the thoracic aorta is within no rmal limits. No evidence of dissection. OSSEOUS: No significant osseous lesions.. ABDOMEN: There is no ascites. No evidence of bowel wall nor mesenteric hematoma. LIVER: No laceration. Multiple benign cysts are again noted, unchanged. No dilated intrahepatic zuly ts. GALLBLADDER/BILIARY: Multiple gallstones are again noted in the gallbladder lumen. There is no gallb ladder wall edema nor pericholecystic fluid. Small density is noted in the lower CBD which may be a calculus within the lower CBD at the pancreatic head level (series 6/image 58). This measures 3 mm. CBD above this level is not dilated and there is no dilatation of intrahepatic ducts PANCREAS: No evidence of pancreatic mass nor dilatation of the pancreatic duct. SPLEEN: Normal size. No lacerations. Splenic and portal veins are patent. ADRENALS: There are no significant adrenal masses. KIDNEYS: Right kidney unremarkable. In the left kidney the previously present large cyst in the supe rior pole has significantly decreased in size. Some mural calcifications noted. There are 2 tiny in trarenal calculi in the left kidney noted. There is mild hydronephrosis and there is ipsilateral mil d hydroureter without a radiopaque calculus in the bladder. However, the bladder is distended and pr ostate gland is enlarged abnormal and violates the bladder base. Require cystoscopy. ABDOMINAL AORTA: Abdominal aorta is not enlarged. LYMPH NODES: There is no retroperitoneal nor paraaortic adenopathy. ABDOMINAL WALL: No evidence of significant anterior abdominal wall nor inguinal hernia. GI: There diverticuli throughout the colon. No obvious acute diverticulitis. PELVIS: LYMPH NODES: There is no intrapelvic nor inguinal adenopathy. GI: No evidence of appendicitis. URINARY BLADDER: Diffusely thickened bladder wall. Abnormal bladder/prostate interface. Requires cy stoscopy to rule out malignancy. REPRODUCTIVE: Appearance of the prostate gland is different than on CT scan of 11/05/2022. May possi katya reflect interval surgery. Cystoscopy recommended. OSSEOUS: No significant osseous lesions. No fractures. Multilevel chronic degenerative disc disease. Also degenerative anterolisthesis of L4 upon L5. IMPRESSION: 1. There is mild-moderate left-sided hydroureter without an obvious obstructing calculus in the urina ry bladder. 2. Urinary bladder wall is diffusely thickened. Abnormal density noted in the bladder lumen inferior ly. Require cystoscopy to rule out malignancy 3. Extensive diverticulosis of the colon. No obvious acute diverticulitis. No bowel obstruction. 4. No acute trauma findings in the chest, abdomen, and pelvis. RADIATION DOSE DELIVERED: 1,063.37mGy.cm Total DLP DATA REPOSITORY: All CT scans at this facility are submitted to the National Radiology Data Registry (NRDR) Dose Index Registry (DIR) with the [employer] (ACR). RADIATION OPTIMIZATION: All CT scans at this facility use at least one of these dose optimization te chniques: automated exposure control; mA and/or kV adjustment per patient size (includes targeted exa ms where dose is matched to clinical indication); or iterative reconstruction.
--- NOTE | 2023-12-02 19:30 | RT.EKG_ITS ---
APPROVED REPORT Exam: Resting ECG Reason for Exam: Falls Patient Location: E HR:75 bpm ECG Measurements Heart Rate 75 AXIS CA 177 P 26 QRSd 113 QRS -9 QT 381 T -18 QTc 426 Conclusion Sinus rhythm...normal P axis, V-rate 60- 99 Inferior infarct, age indeterminate...Q>35mS, T neg, II III aVF
--- NOTE | 2023-12-02 19:30 | DI.CT_ITS ---
Exam(s) CT HEAD WO EXAM: CT HEAD WO CLINICAL HISTORY: Falls,. TECHNIQUE: Imaging Protocol: Axial computed tomography images with coronal and sagittal reformatted images were created and reviewed COMPARISON: CT CT HEAD WO from 03/03/2023 FINDINGS: There are no skull fractures. Previously described lucencies in the occipital bone are unchanged. N o new skull lucencies. Mucosal thickening noted in the left maxillary sinus left frontal sinus, as w ell as in the sphenoid sinuses, unchanged. There is no evidence of intracranial hemorrhage, mass effect, or shift of midline structures. There are no extra-axial fluid collections. The ventricles are not enlarged or shifted and there is no blo od within the ventricular system nor within the basal cisterns. IMPRESSION: No acute intracranial findings on this noninfused CT scan of the brain. Stable appearance of previously described lucencies in the occipital bone of the skull. RADIATION DOSE DELIVERED: 938.32mGy.cm Total DLP DATA REPOSITORY: All CT scans at this facility are submitted to the National Radiology Data Registry (NRDR) Dose Index Registry (DIR) with the [employer] (ACR). RADIATION OPTIMIZATION: All CT scans at this facility use at least one of these dose optimization te chniques: automated exposure control; mA and/or kV adjustment per patient size (includes targeted exa ms where dose is matched to clinical indication); or iterative reconstruction.
--- NOTE | 2023-12-02 19:33 | ED.GENADUL_ITS ---
Discharge Plan Disposition Patient Disposition: Home Condition: Stable Discharge Details Clinical Impression: Alcohol use disorder, BPH (benign prostatic hyperplasia), Urinary tract infection, Urinary retention, Frequent falls Primary Care Provider: Rachel Taveras ED Provider: Bianka Morataya Home Meds and New Rx's Prescriptions: New cephalexin 500 mg tablet 500 mg PO BID 7 Days Qty: 14 0RF Continued terbinafine HCl 250 mg tablet 250 mg PO DAILY Qty: 90 0RF multivitamin 1 EACH tablet 1 ea PO DAILY One-Per-Day [place]-3 1 EACH capsule,delayed release(DR/EC) 1 ea PO DAILY naproxen sodium [Aleve] 220 MG tablet 2 tab PO daily prn pravastatin 40 mg tablet 40 mg PO DAILY Qty: 90 3RF furosemide [Lasix] 40 mg tablet 40 mg PO DAILY Qty: 90 3RF losartan [Cozaar] 100 mg tablet 100 mg PO HS Qty: 90 3RF amlodipine 5 mg tablet 5 mg PO DAILY Qty: 90 3RF metoprolol succinate 50 mg tablet extended release 24 hr 25 mg PO DAILY Discharge Instructions Instructions: Urinary Retention (DC), Alcohol Use Disorder ED, Urinary Tract Infection, Adult ED Additional Instructions: CT shows urinary retention and enlarged prostate, please follow up with Urology regarding this. You also appear to have a UTI. Please take the antibiotics as directed with yogurt or probiotic daily. Follow up with [facility] regarding assistance with Alcohol use. CT also shows some degenerative changes around L3-L5. Follow up with primary care provider in 3-5 days to discuss results from the ER. Return to ED sooner if any worsening confusion, frequent falls, inability to urinate or concerns. Thank you for allowing us to care for you today. Referrals: [facility] [Outside] - 1 day Randall Clements MD [ [facility] STAFF PHYSICIAN] - 1 week Rachel Taveras MD [Primary Care Provider] - 3 days HPI General Mode of arrival: EMS . Date/Time Provider Initiated Documentation: 12/02/23 19:33 . Limitations to Documentation: no limitations . Information obtained by: patient, EMS, RN notes reviewed and old records reviewed . HPI Narrative: 78-year-old male presents to the ER accompanied by his family with a chief complaint of fall x 2 in the last 12 hours. He fell once yesterday landing face first in a doorway and fell once tonight while sitting on the toilet. He admits to have a bottle of Chardonnay he is a daily alcohol user. He reports back pain and incontinence of urine. He does have a history of TURP procedure and UTIs spinal stenosis diverticulosis. He denies any chest pain shortness of breath neck pain or any other associated symptoms. Related Data Home Medications ?Medication ?Instructions ?Recorded ?Confirmed multivitamin 1 ea PO DAILY 10/20/12 12/02/23 omega-3 fatty acids-fish oil 684 1 ea PO DAILY 10/20/12 12/02/23 mg-1,200 mg capsule,delayed release (One-Per-Day [place]-3) naproxen sodium 220 mg tablet 2 tab PO daily prn 12/09/13 12/02/23 (Aleve) pravastatin 40 mg tablet 40 mg PO DAILY #90 tab-caps 01/30/23 12/02/23 furosemide 40 mg tablet (Lasix) 40 mg PO DAILY #90 tab-caps 02/17/23 12/02/23 losartan 100 mg tablet (Cozaar) 100 mg PO HS #90 tabs 02/17/23 12/02/23 metoprolol succinate 50 mg 25 mg PO DAILY 03/03/23 12/02/23 tablet,extended release 24 hr amlodipine 5 mg tablet 5 mg PO DAILY #90 tab-caps 04/20/23 12/02/23 terbinafine HCl 250 mg tablet 250 mg PO DAILY #90 tabs 09/16/23 12/02/23 cephalexin 500 mg tablet 500 mg PO BID 7 days #14 tabs 12/02/23 Previous Rx's ?Medication ?Instructions ?Recorded pravastatin 40 mg tablet 40 mg PO DAILY #90 tab-caps 01/30/23 furosemide 40 mg tablet (Lasix) 40 mg PO DAILY #90 tab-caps 02/17/23 losartan 100 mg tablet (Cozaar) 100 mg PO HS #90 tabs 02/17/23 amlodipine 5 mg tablet 5 mg PO DAILY #90 tab-caps 04/20/23 terbinafine HCl 250 mg tablet 250 mg PO DAILY #90 tabs 09/16/23 cephalexin 500 mg tablet 500 mg PO BID 7 days #14 tabs 12/02/23 Allergies Allergy/AdvReac Type Severity Reaction Status Date / Time thiopental Allergy Intermediate Skin Rash Verified 12/02/23 19:16 General Stated Complaint: Fall/Non TraumaCriteria VELASQUEZ: 3 Review of Systems All systems reviewed & are unremarkable except as noted in HPI and below Genitourinary Genitourinary: Reports urinary incontinence Musculoskeletal Musculoskeletal: Reports back pain Exam Narrative Exam Narrative: General: Well Developed, Awake and Alert, conversant. Skin: Warm and Dry HEENT: Head: No palpable deformities, Normocephalic Eyes: Pupils PERRLA, EOM's intact. No periorbital eccymosis or step off Ears: Canal patent. Tympanic membranes are clear . No drummond's sign, no hemptympanum. Nose/Face: Atraumatic. Facial bones nontender to palpation and stable with manipulation. Mouth/Throat: No intraoral trauma. Teeth and mandible are intact. Neck: No midline tenderness, no step off, no deformity to palpation of C-spine. Trachea midline. Chest: No surface trauma. Nontender without crepitus or deformity. Lungs clear to ausculatation bilaterally. Heart: RRR, no rubs, murmurs or gallop. Abdomen: No abrasions, ecchymosis, or surface trauma. Nondistended. Nontender to palpation no guarding, rebound, or rigidity. Pelvis: Nontender to palpation and stable to compression. Femoral pulses strong and equal Extremities: no surface trauma. Sensation intact. Peripheral pulses intact and equal. Neuro: ANO x4, GCS 15, cranial nerves II through XII intact. Motor and sensory exam nonfocal. Reflexes are symmetric. Course Vital Signs Vital signs: Vital Signs Temperature 36.6 C 12/02/23 19:05 Pulse 82 12/02/23 19:05 Respiratory Rate 23 12/02/23 19:05 Blood Pressure 162/90 H 12/02/23 19:05 Pulse Oximetry 93 12/02/23 19:05 Temperature 36.6 C 12/02/23 19:05 Temperature Source Temporal Artery Scan 12/02/23 19:05 Pulse 82 12/02/23 19:05 Respiratory Rate 23 12/02/23 19:05 Respiratory Effort Normal, Non-Labored 12/02/23 19:09 Blood Pressure 162/90 H 12/02/23 19:05 Blood Pressure Position Sitting 12/02/23 19:05 Pulse Oximetry 93 12/02/23 19:05 Oxygen Delivery Method Room Air 12/02/23 19:05 Oxygen Flow Rate 0 12/02/23 19:05 Pain Level 3 12/02/23 19:05 Lab/Test Results Lab/Test Results: Laboratory Tests Range/Units 12/02/23 19:19 Urine Color (Yellow) Yellow Urine Clarity (Clear) Cloudy Urine pH (5-8) 6.0 Ur Specific [place] (1.005-1.025) 1.015 Urine Protein (Neg-Trace) mg/dL Negative Urine Ketones (Negative) mg/dL Negative Urine Blood (Negative) Trace-intact H Urine Nitrite (Negative) Negative Urine Bilirubin (Negative) Negative Urine Urobilinogen (Up to 0.2) mg/dL 0.2 Ur Leukocyte Esterase (Negative) Moderate H Urine Glucose (Negative) mg/dL Negative Medical Decision Making 78-year-old male presents to the ER accompanied by his family with a chief complaint of fall x 2 in the last 12 hours. He fell once yesterday landing face first in a doorway and fell once tonight while sitting on the toilet. He admits to have a bottle of Chardonnay he is a daily alcohol user. He reports back pain and incontinence of urine. He does have a history of TURP procedure and UTIs spinal stenosis diverticulosis. He denies any chest pain shortness of breath neck pain or any other associated symptoms. Workup ordered including CBC CMP, alcohol level, Tylenol salicylate level, EKG troponin urinalysis. Urine shows moderate leukocytes 10-[address] head without contrast CT chest abdomen pelvis with recons on 19 L-spine ordered. Differential diagnosis includes was not limited to UTI, CAD, alcoholism, cauda equina. CT shows degenerative changes in L3-L5, some urinary retention with enlarged prostate. Patient does have a urinary tract infection. Will give cephalexin 500 mg twice daily, was given a gram of Rocephin here in the department. Patient ambulatory with a walker here in the department with without assistance. Discussed results with patient and family verbalized understanding. Patient is pleasant upon discharge. They verbalized understanding. This text was generated using [employer] system, please disregard any oddities of phrase or misspellings. Medical Records Medical records reviewed: Yes I reviewed the patient's medical records. Imaging Data Radiologic Study: Imaging: CT Scan Radiologist's impression: Moderate left hydroureter without obstructing stone. Distended urinary bladder with wall thickening, correlate for cystitis. There is some mass effect on the posterior portion of the urinary bladder, this may represent an outlet obstruction. Small lobulated partially calcific left upper pole renal cysts measuring 11 mm. Recommend ultrasound for further evaluation. No traumatic abdominal or pelvic injury. Thank you for allowing us to participate in the care of your patient. Dictated and Authenticated by: Rachelle Cunningham MD Radiologic Study #2: Imaging: CT Scan Radiologist's impression: IMPRESSION: 1. Perihilar and bibasilar atelectasis. 2. 5 mm nodular opacity in the left upper lobe appears to be attached to a vessel, this may represent a small AVM versus small pulmonary nodule versus prominent vessel. Radiologic Study #3: Imaging: CT Scan Radiologist's impression: IMPRESSION: 1. Severe multilevel degenerative changes with grade 1 anterolisthesis at L4/L5 with posterior disc bulge at L3/L4, L4/L5 and L5/S1. 2. No fracture. 3. Distended urinary bladder with enlarged prostate causing mass effect on the posterior aspect of the urinary bladder, may be related to outlet process. 4. Bilateral renal cortical thinning. Again seen is a lobulated left upper pole partially calcified cystic lesion. Please see CT of the chest for recommendations. Thank you for allowing us to participate in the care of your patient. Dictated and Authenticated by: Rachelle Cunningham MD Lab Data Lab results reviewed: Yes I reviewed the patient's lab results. Labs: Laboratory Tests Range/Units 12/02/23 12/02/23 12/02/23 19:15 19:19 20:33 WBC (4.4-10.8) 10^3/uL 4.29 L RBC (4.36-5.78) 10^6/uL 4.22 L Hgb (13.5-17.5) g/dL 14.6 Hct (40.0-50.0) % 41.9 MCV (80-95) fL 99 H MCH (27.0-33.0) pg 34.6 H MCHC (32.0-36.0) % 34.8 RDW (11.8-14.1) % 12.0 Plt Count (130-400) 10^3/uL 193 MPV (8.0-11.0) fL 9.1 Immature Gran % % 1.9 Neutrophils % % 47.8 Lymphocytes % % 38.2 Monocytes % % 11.2 Eosinophils % % 0.7 Basophils % % 0.2 Nucleated RBC % (0.0-0.3) % 0.0 Absolute Neutrophils (1.2-6.7) 10^3/uL 2.05 Absolute Lymphocytes (1.2-3.4) 10^3/uL 1.64 Absolute Monocytes (0.1-0.8) 10^3/uL 0.48 Absolute Eosinophils (0.0-0.7) 10^3/uL 0.03 Absolute Basophils (0.0-0.2) 10^3/uL 0.01 Sodium (136-145) mmol/L 141 Potassium (3.5-5.1) mmol/L 3.8 Chloride (98-107) mmol/L 100 Carbon Dioxide (21.0-32.0) mmol/L 26.3 Anion Gap (3-11) mmol/L 14.7 H BUN (7-18) mg/dL 12 Creatinine (0.70-1.30) mg/dL 0.8 Est GFR (CKD-EPI 2020) (mL/min/1.73m2) 89.47 Glucose (74-106) mg/dL 87 Calcium (8.5-10.1) mg/dL 9.4 Magnesium (1.8-2.4) mg/dL 2.0 Total Bilirubin (0.2-1.0) mg/dL 0.65 AST (15-37) U/L 31 ALT (16-63) U/L 37 Alkaline Phosphatase (46-116) U/L 78 Troponin I (<or=76) ng/L 6 Cancelled NT-Pro-B Natriuret Pep (<300) pg/mL 106 Total Protein (6.4-8.2) g/dL 7.8 Albumin (3.4-5.0) g/dL 3.6 Urine Color (Yellow) Yellow Urine Clarity (Clear) Cloudy Urine pH (5-8) 6.0 Ur Specific [place] (1.005-1.025) 1.015 Urine Protein (Neg-Trace) mg/dL Negative Urine Ketones (Negative) mg/dL Negative Urine Blood (Negative) Trace-intact H Urine Nitrite (Negative) Negative Urine Bilirubin (Negative) Negative Urine Urobilinogen (Up to 0.2) mg/dL 0.2 Ur Leukocyte Esterase (Negative) Moderate H Urine RBC (0-2) HPF 0-2 Urine WBC (0-5) HPF 10-20 H Ur Epithelial Cells (Negative) HPF Moderate Urine Crystals (Negative) HPF Negative Urine Bacteria (Negative) HPF Many Urine Mucus (Negative) Negative Urine Other (Negative) Rare Transitional Ur Culture Indicated? No/Sq. Contamination Urine Glucose (Negative) mg/dL Negative Salicylates (<2.8) mg/dL < 2.8 Acetaminophen (10-30) ug/mL < 2 Ethyl Alcohol (<10) mg/dL 229.1 H Quality:SDOH Health Related Social Needs: No Data to Display PFSH All Active Problems (Updated 12/02/23 @ 21:13 by Bianka Morataya NP) Frequent falls (Acute) Urinary retention (Acute) Urinary tract infection (Acute) BPH (benign prostatic hyperplasia) (Chronic) Alcohol use disorder (Acute) Incidental lung nodule, greater than or equal to 8mm (Acute) Cognitive impairment (Acute) Hearing loss (Acute) Onychomycosis (Acute) Abnormal electrocardiography (Acute 01/2023) Echocardiogram of left ventricular normal size wall thickness normal. LVEF estimated at 70%. No segmental wall motion abnormalities. Right ventricle is normal size. Right ventricle systolic function normal. Peak right ventricular systolic pressure was 22 mmHg. No hemodynamically significant valvular disease. Alcohol abuse (Chronic 11/02/12) 05/2021-4 drinks/day Benign prostatic hyperplasia (Chronic) s/p TURP 12/2022 Essential hypertension (Chronic) Hyperlipidemia (Chronic) Obesity (Chronic) Medical History Spinal stenosis surgery [place] 05/06 x 2; now disabled. Elevated PSA Negative prostate biopsy 2008 for 1 time elevated PSA. PSA returned to baseline after biopsy. Negative pathology on TURP 2022 Diverticulosis Surgical History S/P TURP (12/2022) emergent due to bilateral hydronephrosis History of colonoscopy History of umbilical hernia repair S/P cataract extraction Status post lumbar spine surgery for decompression of spinal cord Family History Mother Personal history of malignant neoplasm Pancreatic Father Personal history of malignant neoplasm Lung Brother Dementia Daughter No problems noted. Daughter No problems noted. Social History Smoking/Tobacco Use Status: Former Tobacco Use tobacco type: cigarettes Quit Date: 06/24/75 Tobacco: How many years used: 20 Second Hand Exposure: No Smoking risk assessment performed?: Yes Alcohol Intake: current Alcohol Intake frequency: 3 or more drinks per day Alcohol type: wine Counseling provided: provider counseling Details: Notes 7-9 drinks on a typical day, 6 or more daily or almost daily. 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 Do you think of yourself as: straight/heterosexual Current gender identity: male What is your relationship status?: Panel score (0-1 are the most socially isolated patients): 1 Do you feel safe at home: Yes Do you feel safe in your relationship?: Yes PAWSS Have you Been Recently Intoxicated or Drunk Within the Last 30 days?: Yes Have you Ever Experienced Previous Episodes of Alcohol Withdrawal?: Yes Have you ever Experienced Withdrawal Seizures?: No Have you ever Experienced Delirium Tremens(DT)s?: Yes Have you ever undergone Alcohol Rehabilitation Treatment (i.e, inpt ot outpatient treatment programs)?: No Have you ever Experienced Blackouts?: No Have you ever Combined Alcohol with other Downers within the last 90 days?: No Have you ever Combined Alcohol with any other Substance of Abuse during the last 90 days?: No Positive Blood Alcohol level on Presentation? [PCS.BAL]: Yes Evidence of Increased Autonomic Activity (i.e. HR>120, tremor, sweating, agitation, nausea)?: No Result: 4
[2023-12-02 19:36] LABS: Bacteria Many HPF (Negative); C & S Indicated? No/Sq. Contamination; Crystals Negative HPF (Negative); Epithelial Cells Moderate HPF (Negative); Mucus Negative (Negative); Other Cells Rare Transitional (Negative); RBC 0-2 HPF (0-2)
[2023-12-02 19:41] LABS: Abs Immature Grans 0.08 10^3/uL (0.0-0.06); Absolute Basophil Count 0.01 10^3/uL (0.0-0.2); Absolute Eosinophil Count 0.03 10^3/uL (0.0-0.7); Absolute Lymphocyte Count 1.64 10^3/uL (1.2-3.4); Absolute Monocyte Count 0.48 10^3/uL (0.1-0.8); Absolute Neutrophil Count 2.05 10^3/uL (1.2-6.7); Basophils % 0.2 %; Eosinophils % 0.7 %; HCT 41.9 % (40.0-50.0); HGB 14.6 g/dL (13.5-17.5); Immature Grans % 1.9 %; Lymphocytes % 38.2 %; MCH 34.6 pg (27.0-33.0); MCHC 34.8 % (32.0-36.0); MCV 99 fL (80-95); MPV 9.1 fL (8.0-11.0); Monocytes % 11.2 %; Neutrophils % 47.8 %; Platelet Count 193 10^3/uL (130-400); RBC 4.22 10^6/uL (4.36-5.78); WBC 4.29 10^3/uL (4.4-10.8)
--- NOTE | 2023-12-02 19:42 | DI.CT_ITS ---
Exam(s) CT THORACIC LUMBAR SPINE REC EXAM: CT THORACIC LUMBAR SPINE REC CLINICAL HISTORY: Falls, back pain, incontinence TECHNIQUE: COMPARISON: CT CT CHEST/ABD/PEL W from 12/02/2023 FINDINGS: THORACIC SPINAL COLUMN: No evidence fracture or listhesis. Multilevel calcification of the anterior longitudinal ligament no alexia as well as multilevel osteophytes. No facet joint malalignment evident. No significant scoliosi s. No abnormal widening of the paraspinal lines. LUMBOSACRAL SPINAL COLUMN: Multilevel chronic disc space narrowing. There is 1 cm anterolisthesis of L4 upon L5 related to dege nerative changes.. There is central canal stenosis evident at 2-3, L3-4 and most severe at L4-5 leve l. Also at L5-S1. There is multilevel facet arthropathy but no facet malalignment. IMPRESSION: No acute fractures in the thoracic and lumbosacral spinal columns. Multilevel degenerative changes in the lumbar spine if clinically indicated can be further study with MRI.
[2023-12-02 20:05] LABS: ALT 37 U/L (16-63); AST 31 U/L (15-37); Albumin 3.6 g/dL (3.4-5.0); Alkaline Phosphatase 78 U/L (46-116); Anion Gap 14.7 mmol/L (3-11); BUN 12 mg/dL (7-18); Bilirubin, Total 0.65 mg/dL (0.2-1.0); CO2 26.3 mmol/L (21.0-32.0); CREATININE 0.8 mg/dL (0.70-1.30); Calcium 9.4 mg/dL (8.5-10.1); Chloride 100 mmol/L (98-107); ETHANOL BLOOD 229.1 mg/dL (<10); Estimated GFR 89.47 (mL/min/1.73m2); Glucose 87 mg/dL (74-106); NT-proBNP 106 pg/mL (<300); Potassium 3.8 mmol/L (3.5-5.1); Sodium 141 mmol/L (136-145); Total Protein 7.8 g/dL (6.4-8.2); Troponin I 6 ng/L (<or=76)
[2023-12-02] MEDS: Normal Saline - Diluent 50 ML VIAL IJ (20:20)
[2023-12-02] MEDS: Omnipaque 350 MG/ML 100 ML BTL IJ (20:20)
[2023-12-02 20:23] LABS: Salicylate < 2.8 mg/dL (<2.8)
[2023-12-02 20:24] LABS: Acetaminophen < 2 ug/mL (10-30)
--- NOTE | 2023-12-02 20:41 | DI.VRAD_ITS ---
PROCEDURE INFORMATION: Exam: CT Head Without Contrast Exam date and time: 12/02/2023 8:15 PM Age: 78 years old Clinical indication: Injury or trauma; Fall; Blunt trauma (contusions or hematomas) TECHNIQUE: Imaging protocol: Computed tomography of the head without contrast. COMPARISON: CT HEAD WO 03/03/2023 3:46 PM FINDINGS: Brain: Mild volume loss. No hemorrhage. Mild white matter disease. No mass effect. Cerebral ventricles: No ventriculomegaly. Paranasal sinuses: Polypoid mucosal thickening/soft tissue. Minimal fluid in the left frontal sinus. No fluid levels. Mastoid air cells: Visualized mastoid air cells are well aerated. Bones: Unremarkable. No acute fracture. Soft tissues: Unremarkable. IMPRESSION: No acute intracranial hemorrhage noted Presumed inflammatory changes in the paranasal sinuses. Dictated and Authenticated by: Rolan Bryson MD. Ordering:MARI Carlton MD
--- NOTE | 2023-12-02 20:47 | DI.VRAD_ITS ---
PROCEDURE INFORMATION: Exam: CT Chest With Contrast; Diagnostic Exam date and time: 12/02/2023 8:21 PM Age: 78 years old Clinical indication: Injury or trauma; Generalized; Blunt trauma (contusions or hematomas); Injury details: Falls, back pain TECHNIQUE: Imaging protocol: Diagnostic computed tomography of the chest with contrast. 3D rendering (Not supervised by radiologist): MIP and/or 3D reconstructed images were created by the technologist. Contrast material: OMNI 350; Contrast volume: 100 ml; Contrast route: INTRAVENOUS (IV); COMPARISON: CT CHEST WO 11/05/2023 1:06 PM FINDINGS: Lungs: Perihilar and bibasilar atelectasis. 5 mm nodular opacity in the left upper lobe appears to be attached to a vessel, this may represent a small AVM versus small pulmonary nodule versus prominent vessel. Pleural spaces: Unremarkable. No pneumothorax. No pleural effusion. Heart: Cardiomegaly. Lymph nodes: Unremarkable. No enlarged lymph nodes. Vasculature: Moderate atherosclerotic disease of thoracic aorta. Bones/joints: Unremarkable. No acute fracture. Soft tissues: Unremarkable. IMPRESSION: 1. Perihilar and bibasilar atelectasis. 2. 5 mm nodular opacity in the left upper lobe appears to be attached to a vessel, this may represent a small AVM versus small pulmonary nodule versus prominent vessel. 3. No traumatic chest injury PROCEDURE INFORMATION: Exam: CT Abdomen And Pelvis With Contrast Exam date and time: 12/02/2023 8:21 PM Age: 78 years old Clinical indication: Injury or trauma; Generalized; Blunt trauma (contusions or hematomas); Injury details: Falls, back pain TECHNIQUE: Imaging protocol: Computed tomography of the abdomen and pelvis with contrast. 3D rendering (Not supervised by radiologist): MIP and/or 3D reconstructed images were created by the technologist. Contrast material: OMNI 350; Contrast volume: 100 ml; Contrast route: INTRAVENOUS (IV); COMPARISON: CT ABDOMEN PELVIS WO/W 11/05/2022 8:03 AM FINDINGS: Lungs: Clear Liver: Multiple liver cysts measuring up to 1 cm. Gallbladder and biliary ducts: Multiple gallstones are present. No pericholecystic inflammatory changes to suggest cholecystitis. Pancreas: Normal. No ductal dilation. Spleen: Normal. No splenomegaly. Adrenal glands: Normal. No mass. Kidneys and ureters: Bilateral renal cortical thickening. Small lobulated partially calcific left upper pole renal cysts measuring 11 mm. Recommend ultrasound for further evaluation. Small nonobstructing inferior pole renal calculi. Moderate left hydroureter without obstructing stone. Stomach and bowel: Stool throughout the colon and rectum. Appendix: No evidence of appendicitis. Intraperitoneal space: Unremarkable. No free air. No significant fluid collection. Vasculature: Unremarkable. No abdominal aortic aneurysm. Lymph nodes: Unremarkable. No enlarged lymph nodes. Urinary bladder: The urinary bladder wall is thickened, this could represent cystitis. Reproductive: Enlarged prostate. Bones/joints: Severe multilevel degenerative changes with disc space narrowing and osteophyte formation. Grade 1 anterolisthesis at L4/L5 and L5/S1 with posterior disc bulge at L3/L4, L4/L5 and L5/S1. Soft tissues: Small fat containing left inguinal hernia. IMPRESSION: Moderate left hydroureter without obstructing stone. Distended urinary bladder with wall thickening, correlate for cystitis. There is some mass effect on the posterior portion of the urinary bladder, this may represent an outlet obstruction. Small lobulated partially calcific left upper pole renal cysts measuring 11 mm. Recommend ultrasound for further evaluation. No traumatic abdominal or pelvic injury. Dictated and Authenticated by: Rachelle Cunningham MD. Ordering:MARI Carlton MD
--- NOTE | 2023-12-02 20:59 | DI.[facility]AD_ITS ---
PROCEDURE INFORMATION: Exam: CT Thoracic Spine Without Contrast Exam date and time: 12/02/2023 8:21 PM Age: 78 years old Clinical indication: Injury or trauma; Blunt trauma (contusions or hematomas); Injury details: Falls, back pain, incontinence TECHNIQUE: Imaging protocol: Computed tomography of the thoracic spine without contrast. COMPARISON: [place] BONE SCAN WHOLE BODY [facility] 03/05/2023 11:07 AM FINDINGS: Bones/joints: Moderate multilevel degenerative changes with bridging osteophytes. No fracture identified. T1-T2: No significant disc bulge or herniation. No severe spinal canal stenosis. No significant neural foraminal narrowing. T2-T3: No significant disc bulge or herniation. No severe spinal canal stenosis. No significant neural foraminal narrowing. T3-T4: No significant disc bulge or herniation. No severe spinal canal stenosis. No significant neural foraminal narrowing. T4-T5: No significant disc bulge or herniation. No severe spinal canal stenosis. No significant neural foraminal narrowing. T5-T6: No significant disc bulge or herniation. No severe spinal canal stenosis. No significant neural foraminal narrowing. T6-T7: No significant disc bulge or herniation. No severe spinal canal stenosis. No significant neural foraminal narrowing. T7-T8: No significant disc bulge or herniation. No severe spinal canal stenosis. No significant neural foraminal narrowing. T8-T9: No significant disc bulge or herniation. No severe spinal canal stenosis. No significant neural foraminal narrowing. T9-T10: No significant disc bulge or herniation. No severe spinal canal stenosis. No significant neural foraminal narrowing. T10-T11: No significant disc bulge or herniation. No severe spinal canal stenosis. No significant neural foraminal narrowing. T11-T12: No significant disc bulge or herniation. No severe spinal canal stenosis. No significant neural foraminal narrowing. T12-L1: No significant disc bulge or herniation. No severe spinal canal stenosis. No significant neural foraminal narrowing. Lungs: Bibasilar atelectasis. Vasculature: Moderate atherosclerotic disease of the thoracic aorta IMPRESSION: No fracture identified. PROCEDURE INFORMATION: Exam: CT Lumbar Spine Without Contrast Exam date and time: 12/02/2023 8:21 PM Age: 78 years old Clinical indication: Injury or trauma; Blunt trauma (contusions or hematomas); Injury details: Falls, back pain, incontinence TECHNIQUE: Imaging protocol: Computed tomography of the lumbar spine without contrast. COMPARISON: [place] BONE SCAN WHOLE BODY [facility] 03/05/2023 11:07 AM FINDINGS: Bones/joints: No fracture. L1-L2: No significant disc bulge or herniation. No severe spinal canal stenosis. Bilateral neural foraminal narrowing. L2-L3: No significant disc bulge or herniation. No severe spinal canal stenosis. Bilateral neural foraminal narrowing. L3-L4: No significant disc bulge or herniation. No severe spinal canal stenosis. Bilateral neural foraminal narrowing. L4-L5: Severe multilevel degenerative changes with grade 1 anterolisthesis at L4/L5 with posterior disc bulge at L3/L4, L4/L5 and L5/S1. Bilateral neural foraminal narrowing. L5-S1: See L4-L5 finding. Kidneys and ureters: Bilateral renal cortical thinning. Again seen is a lobulated left upper pole partially calcified cystic lesion. Please see CT of the chest for recommendations. Reproductive: Distended urinary bladder with enlarged prostate causing mass effect on the posterior aspect of the urinary bladder, may be related to outlet process. Soft tissues: Unremarkable. IMPRESSION: 1. Severe multilevel degenerative changes with grade 1 anterolisthesis at L4/L5 with posterior disc bulge at L3/L4, L4/L5 and L5/S1. 2. No fracture. 3. Distended urinary bladder with enlarged prostate causing mass effect on the posterior aspect of the urinary bladder, may be related to outlet process. 4. Bilateral renal cortical thinning. Again seen is a lobulated left upper pole partially calcified cystic lesion. Please see CT of the chest for recommendations. Dictated and Authenticated by: Rachelle Cunningham MD. Ordering:MARI Carlton MD
[2023-12-02] MEDS: cefTRIAXone 1 GM/50 ML BAG IVPB (21:13)
[2023-12-02 21:54] VITALS: BP 138/73; PULSE 80; RESP 22; TEMP 36.9; O2SAT 94
== END 2023-12-02 21:56 | disposition home or self-care (01) ==
PROVIDERS: Emergency Provider Registered Nurse Emergency; PCP Family Medicine
DX: N40.1 Benign prostatic hyperplasia with lower urinary tract symptoms (principal); R33.8 Other retention of urine; K80.20 Calculus of gallbladder without cholecystitis without obstruction; N13.2 Hydronephrosis with renal and ureteral calculous obstruction; F10.10 Alcohol abuse, uncomplicated; N39.0 Urinary tract infection, site not specified; R29.6 Repeated falls; Z87.891 Personal history of nicotine dependence
CPT/HCPCS: 74177; 80053; 93005; 96365; 99285; 70450; 71260; 80320; 80329; 81003; 81015; 83735; 83880; 84484; 85025; 93010; J0696; J3490

== ENCOUNTER → 2023-12-21 15:10 | Outpatient (BNVA) | payer MEDICARE, SELFPAY | PROVIDERS: PCP Family Medicine; Referring Provider Family Medicine; Visit Provider Nurse Practitioner Gerontology | DX: R31.0 Gross hematuria (principal); R33.8 Other retention of urine; N39.0 Urinary tract infection, site not specified; N40.0 Benign prostatic hyperplasia without lower urinary tract symptoms; I10 Essential (primary) hypertension | CPT/HCPCS: 51798; 81003; 99213 ==

== ENCOUNTER 2023-12-21 21:48 | Outpatient (REF) | payer MEDICARE, SELFPAY | END 2023-12-21 21:49 | disposition home or self-care (01) | LOC: LBN 21:48 | PROVIDERS: PCP Family Medicine; Visit Provider Nurse Practitioner Gerontology | DX: N39.0 Urinary tract infection, site not specified (principal); Z71.89 Other specified counseling; R39.9 Unspecified symptoms and signs involving the genitourinary system; R33.9 Retention of urine, unspecified; R31.0 Gross hematuria; N40.0 Benign prostatic hyperplasia without lower urinary tract symptoms; I10 Essential (primary) hypertension | CPT/HCPCS: 87077; 87086; 87186 ==

== ENCOUNTER → 2024-02-11 13:42 | Outpatient (BNVA) | payer MEDICARE, SELFPAY | PROVIDERS: PCP Family Medicine; Referring Provider Family Medicine; Visit Provider Nurse Practitioner Gerontology | DX: N40.0 Benign prostatic hyperplasia without lower urinary tract symptoms (principal); R33.8 Other retention of urine; N13.30 Unspecified hydronephrosis; R31.0 Gross hematuria; N39.0 Urinary tract infection, site not specified; R97.20 Elevated prostate specific antigen [PSA] | CPT/HCPCS: 51798; 99213 ==

== ENCOUNTER 2024-06-20 00:07 | Outpatient (CLI) | payer MEDICARE, SELFPAY ==
--- NOTE | 2024-06-20 06:45 | DI.US_ITS ---
Exam(s) US RENAL EXAM: US RENAL CLINICAL HISTORY: monitoring hydronephrosis/emptying,n13.30. TECHNIQUE: Kramer scale, color and spectral Doppler were used. COMPARISON: CT CT ABDOMEN PELVIS WO/W from 11/05/2022 US POCUS EXAM from 05/01/2023 US POCUS EXAM from 11/27/[address] CHEST/ABD/PEL W from 12/02/2023 FINDINGS: Renal size in cm: Right: 12.0. Left: 11.7. Echogenicity: Normal. Hydronephrosis: No. Cyst or mass: There is a simple 1 cm cyst in the lateral aspect of the left kidney. There is a compl ex cyst in the superior pole with peripheral calcification measuring up to 2.5 cm. This can be seen on the CT scan from 12/02/2023. It shows significant decrease in size compared to the CT scan from . Nephrolithiasis: There is a 0.7 cm echogenic focus in the lower pole of the left kidney consistent wi th a nonobstructing stone. This was present on the CT scan from 12/02/2023. Other findings: None. Bladder:Normal. Ureteral jets: Right: Visualized and unremarkable. Left: Visualized and unremarkable. Prevoid vol:465 cc Postvoid vol:394 cc Prostate: 67 cc Renal color flow: Symmetric and within normal limits. IMPRESSION: 1. No hydronephrosis. 2. Enlarged prostate gland. 3. Large postvoid urinary bladder volume which may be secondary to bladder outlet obstruction. DATA REPOSITORY:
== END 2024-06-20 00:27 ==
LOC: DI 00:07
PROVIDERS: PCP Family Medicine; Visit Provider Nurse Practitioner Gerontology
DX: N13.30 Unspecified hydronephrosis (principal); N40.0 Benign prostatic hyperplasia without lower urinary tract symptoms
CPT/HCPCS: 76770; 99213

== ENCOUNTER 2024-06-30 00:44 | Outpatient (CLI) | payer MEDICARE, SELFPAY ==
--- NOTE | 2024-06-30 08:25 | DI.RAD_ITS ---
Exam(s) XR KNEE LT 3V AP,LAT,RISHI EXAM: XR KNEE LT 3V AP,LAT,RISHI CLINICAL HISTORY: l knee pain,m25.562. TECHNIQUE: 2D digital imaging was performed. COMPARISON: No exams were available for comparison FINDINGS: 3 views No evidence fracture but there does appear to be a moderate size joint effusion. There is bone-on-raymond ne narrowing of the medial compartment. Moderate narrowing of the lateral compartment. Moderate deg enerative changes in the patellofemoral compartment. Bone density normal. No osseous lesions. IMPRESSION: Tricompartmental degenerative changes, most prominent in the medial compartment. Joint effusion also noted. DATA REPOSITORY: RADIATION DOSE DELIVERED:
== END 2024-06-30 01:04 ==
LOC: DI 00:44
PROVIDERS: PCP Family Medicine; Visit Provider Family Medicine
DX: M25.562 Pain in left knee (principal)
CPT/HCPCS: 73562

== ENCOUNTER 2024-10-25 08:05 | Outpatient (CLI) | payer MEDICARE, SELFPAY ==
--- NOTE | 2024-10-25 06:00 | DI.CT_ITS ---
Exam(s) CT CHEST WO EXAM: CT CHEST WO CLINICAL HISTORY: f/u lung nodule,r91.1 TECHNIQUE: Imaging Protocol: Axial computed tomography images with coronal and sagittal reformatted images were created and reviewed. Computer aided detection (CAD) was utilized. CONTRAST MATERIAL: Intravenous: Omnipaque 350 Contrast volume:structured data ml. COMPARISON: CT CT CHEST W from 03/06/[address] CHEST WO from 11/05/[address] CHEST/ABD/PEL W from 12/02/2023 FINDINGS: Pulmonary parenchyma: Stable smoothly marginated 8 millimeter nodule in the anterior left upper lobe. No additional nodules. No consolidation. Tracheobronchial tree: No bronchiectasis or mucous plugging. Mediastinum and Bridgett: No dominant adenopathy or fluid collection. Pleura: No effusion. No pneumothorax. Heart: The heart is mildly dilated. Mild coronary artery calcifications are seen. Aorta: Thoracic aorta non-dilated. Mild atherosclerotic changes. Pulmonary arteries: No gross evidence of emboli. Upper abdomen: No acute findings. Cholelithiasis again noted. Bones: Degenerative changes in the spine. Soft tissues: Unremarkable. IMPRESSION: 8 millimeter nodule in the left upper lobe, stable compared with February 2023. RADIATION DOSE DELIVERED: 217.59mGy.cm Total DLP DATA REPOSITORY: All CT scans at this facility are submitted to the National Radiology Data Registry (NRDR) Dose Index Registry (DIR) with the [employer] (ACR). RADIATION OPTIMIZATION: All CT scans at this facility use at least one of these dose optimization techniques: automated exposure control; mA and/or kV adjustment per patient size (includes targeted exams where dose is matched to clinical indication); or iterative reconstruction.
== END 2024-10-25 08:25 ==
LOC: DI 08:05
PROVIDERS: PCP Family Medicine; Visit Provider Family Medicine
DX: R91.1 Solitary pulmonary nodule (principal)
CPT/HCPCS: 71250

== ENCOUNTER 2024-10-26 17:02 | Outpatient (CLI) | payer MEDICARE, SELFPAY ==
[2024-10-26 17:23] LABS: ALT 77 U/L (16-63); AST 68 U/L (15-37); Albumin 3.6 g/dL (3.4-5.0); Alkaline Phosphatase 119 U/L (46-116); Anion Gap 5.4 mmol/L (3-11); BUN 11 mg/dL (7-18); Bilirubin, Total 0.7 mg/dL (0.2-1.0); CO2 28.6 mmol/L (21.0-32.0); Calcium 9.0 mg/dL (8.5-10.1); Chloride 89 mmol/L (98-107); Estimated GFR 85.80 (mL/min/1.73m2); Glucose 96 mg/dL (74-106); NT-proBNP 635 pg/mL (<300); Potassium 4.9 mmol/L (3.5-5.1); Total Protein 7.1 g/dL (6.4-8.2)
[2024-10-26 17:45] LABS: Sodium 123 mmol/L (136-145)
== END 2024-10-26 17:03 | disposition home or self-care (01) ==
LOC: LBO 17:03
PROVIDERS: PCP Family Medicine; Visit Provider Family Medicine
DX: I50.9 Heart failure, unspecified (principal); R60.0 Localized edema; I10 Essential (primary) hypertension
CPT/HCPCS: 36415; 80053; 83880

== ENCOUNTER 2024-10-27 08:37 | Emergency (ER) | payer MEDICARE, SELFPAY ==
[2024-10-27] VITALS (36 sets, daily range): BP systolic 105–138; BP diastolic 55–72; PULSE 49–64; RESP 14–28; TEMP 36.3–36.8; O2SAT 89–100
[2024-10-27 09:28] LABS: Abs Immature Grans 0.07 10^3/uL (0.0-0.06); HCT 33.7 % (40.0-50.0); HGB 12.2 g/dL (13.5-17.5); Immature Grans % 1.4 %; MCH 35.2 pg (27.0-33.0); MCHC 36.2 % (32.0-36.0); MCV 97 fL (80-95); MPV 8.6 fL (8.0-11.0); Platelet Count 209 10^3/uL (130-400); RBC 3.47 10^6/uL (4.36-5.78); RDW 11.8 % (11.8-14.1); RDW-SD 41.4 fL; WBC 5.15 10^3/uL (4.4-10.8)
[2024-10-27 09:49] LABS: ALT 74 U/L (16-63); AST 66 U/L (15-37); Albumin 3.6 g/dL (3.4-5.0); Alkaline Phosphatase 119 U/L (46-116); Anion Gap 8.8 mmol/L (3-11); BUN 8 mg/dL (7-18); Bilirubin, Total 0.9 mg/dL (0.2-1.0); CO2 27.2 mmol/L (21.0-32.0); Calcium 8.9 mg/dL (8.5-10.1); Chloride 89 mmol/L (98-107); Estimated GFR 92.57 (mL/min/1.73m2); Glucose 87 mg/dL (74-106); Potassium 4.9 mmol/L (3.5-5.1); Sodium 125 mmol/L (136-145); Total Protein 7.2 g/dL (6.4-8.2)
--- NOTE | 2024-10-27 11:53 | W.ED.GENAD ---
Discharge Plan Disposition Patient Disposition: Home Condition: Stable Discharge Details Clinical Impression: Acute hyponatremia, Alcohol abuse, Edema of both lower legs Primary Care Provider: Rachel Taveras ED Provider: Zaid Edwards Home Meds and New Rx's Prescriptions: Continued pravastatin 40 mg tablet 40 mg PO DAILY Qty: 90 3RF losartan 50 mg tablet 50 mg PO HS Qty: 90 3RF memantine-donepezil 14-10 mg cap,sprinkle,ER 24hr dose pack 1 cap PO DAILY Qty: 90 1RF metoprolol succinate 100 mg tablet extended release 24 hr 100 mg PO DAILY Qty: 90 3RF furosemide [Lasix] 40 mg tablet 40 mg PO BID Qty: 180 3RF multivitamin 1 EACH tablet 1 ea PO DAILY One-Per-Day [place]-3 1 EACH capsule,delayed release(DR/EC) 1 ea PO DAILY Discontinued amlodipine 5 mg tablet 5 mg PO DAILY Qty: 90 3RF Discharge Instructions Instructions: Alcohol Use Disorder ED, Hyponatremia Additional Instructions: Please follow-up with Dr. Taveras. She will see you next week for reassessment. Return to the emergency department immediately for any worsening or new concerning symptoms. Referrals: Rachel Taveras MD [Primary Care Provider, Medicine] Discharge Data Discharge Date/Time-TO BE ENTERED AT DEPARTURE: 10/27/24 12:25 HPI General Mode of arrival: ambulatory. Date/Time Provider Initiated Documentation: 10/27/24 08:47. Limitations to Documentation: no limitations. Information obtained by: patient and family. HPI Narrative: HISTORY OF PRESENT ILLNESS 79-year-old male with moderate cognitive impairment, alcohol use disorder, hypertension, hyperlipidemia, and obesity presenting with outpatient labs showing hyponatremia (Na 123). No symptoms of weakness, numbness, or tingling. Normal urination and hydration. No heart, lung, kidney disease, or cancer. Previously on Lasix, now discontinued. Uses walker due to spinal stenosis. Drinks 3-4 glasses of wine daily, starting in the morning, without safety issues. notes consumes 1.5 L of wine daily. Related Data Home Medications ?Medication ?Instructions ?Recorded ?Confirmed multivitamin 1 ea PO DAILY 10/20/12 10/27/24 omega-3 fatty acids-fish oil 684 1 ea PO DAILY 10/20/12 10/27/24 mg-1,200 mg capsule,delayed release (One-Per-Day [place]-3) pravastatin 40 mg tablet 40 mg PO DAILY #90 tab-caps 01/20/24 10/27/24 losartan 50 mg tablet 50 mg PO HS #90 tabs 03/04/24 10/27/24 memantine ER 14 mg-donepezil 10 mg 1 cap PO DAILY #90 dose pk 06/28/24 10/27/24 capsule sprinkle,ext.release 24 hr metoprolol succinate 100 mg 100 mg PO DAILY #90 tabs 06/28/24 10/27/24 tablet,extended release 24 hr furosemide 40 mg tablet (Lasix) 40 mg PO BID #180 tab-caps 10/26/24 10/27/24 Previous Rx's ?Medication ?Instructions ?Recorded pravastatin 40 mg tablet 40 mg PO DAILY #90 tab-caps 01/20/24 losartan 50 mg tablet 50 mg PO HS #90 tabs 03/04/24 memantine ER 14 mg-donepezil 10 mg 1 cap PO DAILY #90 dose pk 06/28/24 capsule sprinkle,ext.release 24 hr metoprolol succinate 100 mg 100 mg PO DAILY #90 tabs 06/28/24 tablet,extended release 24 hr furosemide 40 mg tablet (Lasix) 40 mg PO BID #180 tab-caps 10/26/24 Allergies Allergy/AdvReac Type Severity Reaction Status Date / Time thiopental Allergy Intermediate Skin Rash Verified 10/27/24 08:45 General Stated Complaint: GenMedical VELASQUEZ: 3 Review of Systems All systems reviewed & are unremarkable except as noted in HPI and below Exam Const General: cooperative and no acute distress [facility] Head: normocephalic and atraumatic Mouth: moist mucous membranes Eyes Conjunctivae: normal conjunctivae Sclera: normal sclerae Resp Auscultation: clear to auscultation bilaterally, no rales, no rhonchi and no wheezes Cardio Jugular venous pressure: no JVD Rate: regular rate and not tachycardic Rhythm: regular rhythm GI Palpation: soft, not firm, no guarding, no masses, not rigid and nontender Skin General skin exam: no rashes or lesions noted Neuro General: patient alert, patient awake, patient oriented x3 and tone normal Extrem General: edema Laterality: bilateral (1+ pitting up shins) Psych Appearance: grossly normal Mental Status: mental status grossly normal Speech and Movement: speech and movement normal Course Vital Signs Vital signs: Vital Signs Temperature 36.8 C 10/27/24 08:43 Pulse 53 L 10/27/24 08:43 Respiratory Rate 18 10/27/24 08:43 Blood Pressure 105/69 10/27/24 08:43 Pulse Oximetry 97 10/27/24 08:43 Temperature 36.8 C 10/27/24 08:45 Pulse 55 L 10/27/24 11:50 Pulse 60 10/27/24 11:50 Respiratory Rate 25 H 10/27/24 11:50 Respiratory Effort Normal, Non-Labored 10/27/24 11:25 Respiratory Depth Normal 10/27/24 11:25 Respiratory Pattern Normal 10/27/24 11:25 Blood Pressure 127/61 10/27/24 11:46 Blood Pressure Mean 86 10/27/24 11:46 Pulse Oximetry 99 10/27/24 11:50 Lab/Test Results Lab/Test Results: Laboratory Tests Range/Units 10/27/24 09:15 WBC (4.4-10.8) 10^3/uL 5.15 RBC (4.36-5.78) 10^6/uL 3.47 L Hgb (13.5-17.5) g/dL 12.2 L Hct (40.0-50.0) % 33.7 L MCV (80-95) fL 97 H MCH (27.0-33.0) pg 35.2 H MCHC (32.0-36.0) % 36.2 H RDW (11.8-14.1) % 11.8 Plt Count (130-400) 10^3/uL 209 MPV (8.0-11.0) fL 8.6 Immature Gran % % 1.4 Neutrophils % % 60.7 Lymphocytes % % 27.4 Monocytes % % 9.5 Eosinophils % % 0.8 Basophils % % 0.2 Nucleated RBC % (0.0-0.3) % 0.0 Absolute Neutrophils (1.2-6.7) 10^3/uL 3.13 Absolute Lymphocytes (1.2-3.4) 10^3/uL 1.41 Absolute Monocytes (0.1-0.8) 10^3/uL 0.49 Absolute Eosinophils (0.0-0.7) 10^3/uL 0.04 Absolute Basophils (0.0-0.2) 10^3/uL 0.01 Sodium (136-145) mmol/L 125 L Potassium (3.5-5.1) mmol/L 4.9 Chloride (98-107) mmol/L 89 L Carbon Dioxide (21.0-32.0) mmol/L 27.2 Anion Gap (3-11) mmol/L 8.8 BUN (7-18) mg/dL 8 Creatinine (0.70-1.30) mg/dL 0.7 Est GFR (CKD-EPI 2020) (mL/min/1.73m2) 92.57 Glucose (74-106) mg/dL 87 Calcium (8.5-10.1) mg/dL 8.9 Total Bilirubin (0.2-1.0) mg/dL 0.9 AST (15-37) U/L 66 H ALT (16-63) U/L 74 H Alkaline Phosphatase (46-116) U/L 119 H Total Protein (6.4-8.2) g/dL 7.2 Albumin (3.4-5.0) g/dL 3.6 Ethyl Alcohol (<10) mg/dL 49.8 H Medical Decision Making ASSESSMENT AND PLAN 79-year-old male with hyponatremia (Na 123), possibly related to chronic alcohol use. No symptoms reported. Differential Diagnosis: Hyponatremia: Chronic alcohol use. CBC today. Chronic alcoholism: Reports drinking wine throughout the day. Consider impact on hyponatremia. ED Course: Reviewed clinic visit with PCP on 10/26/2024. CBC ordered. Repeated chemistry. Sodium improving. Patient seen by his PCP here in the emergency department. All results were discussed with the patient. Usual and customary discharge instructions were reviewed. Patient stable and requesting discharge. Clinical Impression: Hyponatremia moderate and improving, Chronic alcoholism, Spinal stenosis. Disposition: Discharge home. Return if symptoms worsen or new symptoms develop. Follow-Up: Follow up with PCP. This document was written with the assistance of JOSEPH Jackson. The patient consented to its use. Lab Data Lab results reviewed: Yes I reviewed the patient's lab results. Labs: Laboratory Tests Range/Units 10/27/24 09:15 WBC (4.4-10.8) 10^3/uL 5.15 RBC (4.36-5.78) 10^6/uL 3.47 L Hgb (13.5-17.5) g/dL 12.2 L Hct (40.0-50.0) % 33.7 L MCV (80-95) fL 97 H MCH (27.0-33.0) pg 35.2 H MCHC (32.0-36.0) % 36.2 H RDW (11.8-14.1) % 11.8 Plt Count (130-400) 10^3/uL 209 MPV (8.0-11.0) fL 8.6 Immature Gran % % 1.4 Neutrophils % % 60.7 Lymphocytes % % 27.4 Monocytes % % 9.5 Eosinophils % % 0.8 Basophils % % 0.2 Nucleated RBC % (0.0-0.3) % 0.0 Absolute Neutrophils (1.2-6.7) 10^3/uL 3.13 Absolute Lymphocytes (1.2-3.4) 10^3/uL 1.41 Absolute Monocytes (0.1-0.8) 10^3/uL 0.49 Absolute Eosinophils (0.0-0.7) 10^3/uL 0.04 Absolute Basophils (0.0-0.2) 10^3/uL 0.01 Sodium (136-145) mmol/L 125 L Potassium (3.5-5.1) mmol/L 4.9 Chloride (98-107) mmol/L 89 L Carbon Dioxide (21.0-32.0) mmol/L 27.2 Anion Gap (3-11) mmol/L 8.8 BUN (7-18) mg/dL 8 Creatinine (0.70-1.30) mg/dL 0.7 Est GFR (CKD-EPI 2020) (mL/min/1.73m2) 92.57 Glucose (74-106) mg/dL 87 Calcium (8.5-10.1) mg/dL 8.9 Total Bilirubin (0.2-1.0) mg/dL 0.9 AST (15-37) U/L 66 H ALT (16-63) U/L 74 H Alkaline Phosphatase (46-116) U/L 119 H Total Protein (6.4-8.2) g/dL 7.2 Albumin (3.4-5.0) g/dL 3.6 Ethyl Alcohol (<10) mg/dL 49.8 H PFSH All Active Problems Alcohol abuse (Chronic) Acute hyponatremia (Acute) Urinary incontinence (Acute) Edema of both lower legs (Acute) Nail dystrophy (Acute) Moderate cognitive impairment (Acute ~12/16/23) Anterolisthesis of lumbar spine (Acute) Spinal stenosis at L4-L5 level (Acute) improved with physical therapy Incidental lung nodule, greater than or equal to 8mm (Acute) stable on repeat 10/2023; next due 10/2024 Hearing loss (Acute) Onychomycosis (Acute) Abnormal electrocardiography (Acute 01/2023) Echocardiogram of left ventricular normal size wall thickness normal. LVEF estimated at 70%. No segmental wall motion abnormalities. Right ventricle is normal size. Right ventricle systolic function normal. Peak right ventricular systolic pressure was 22 mmHg. No hemodynamically significant valvular disease. Alcohol abuse (Chronic 11/02/12) 05/2021-4 drinks/day Benign prostatic hyperplasia (Chronic) s/p TURP 12/2022; followed by urology Essential hypertension (Chronic) Hyperlipidemia (Chronic) Obesity (Chronic) Medical History Spinal stenosis surgery [place] 05/06 x 2; now disabled. Elevated PSA Negative prostate biopsy 2008 for 1 time elevated PSA. PSA returned to baseline after biopsy. Negative pathology on TURP 2022 Diverticulosis Surgical History S/P TURP (12/2022) emergent due to bilateral hydronephrosis History of colonoscopy History of umbilical hernia repair S/P cataract extraction Status post lumbar spine surgery for decompression of spinal cord (2013) Family History Mother Personal history of malignant neoplasm Pancreatic Father Personal history of malignant neoplasm Lung Brother Dementia Daughter No problems noted. Daughter No problems noted. Social History Smoking/Tobacco Use Status: Former Tobacco Use tobacco type: cigarettes Quit Date: 06/24/75 Tobacco: How many years used: 20 Second Hand Exposure: No Smoking risk assessment performed?: Yes Alcohol Intake: current Alcohol Intake frequency: 3 or more drinks per day Alcohol type: wine Counseling provided: provider counseling Details: Notes 7-9 drinks on a typical day, 6 or more daily or almost daily. 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 Do you think of yourself as: straight/heterosexual Current gender identity: male What is your relationship status?: Panel score (0-1 are the most socially isolated patients): 1 Do you feel safe at home: Yes Do you feel safe in your relationship?: Yes
== END 2024-10-27 12:25 | disposition home or self-care (01) ==
PROVIDERS: Emergency Provider Student in an Organized Health Care Education/Training Program; PCP Family Medicine
DX: E87.1 Hypo-osmolality and hyponatremia (principal); F10.10 Alcohol abuse, uncomplicated; R60.0 Localized edema
CPT/HCPCS: 99283 ×2; 36415; 80053; 80320; 85025

== ENCOUNTER 2024-11-11 01:09 | Outpatient (CLI) | payer MEDICARE, SELFPAY ==
[2024-11-11 08:43] LABS: Anion Gap 9.2 mmol/L (3-11); BUN 9 mg/dL (7-18); CO2 30.8 mmol/L (21.0-32.0); Calcium 8.6 mg/dL (8.5-10.1); Chloride 92 mmol/L (98-107); Estimated GFR 75.61 (mL/min/1.73m2); Glucose 121 mg/dL (74-106); Potassium 3.9 mmol/L (3.5-5.1); Sodium 132 mmol/L (136-145)
== END 2024-11-11 01:10 | disposition home or self-care (01) ==
LOC: LBO 01:09
PROVIDERS: PCP Family Medicine; Visit Provider Family Medicine
DX: R60.0 Localized edema (principal); I10 Essential (primary) hypertension
CPT/HCPCS: 36415; 80048

== ENCOUNTER 2024-11-25 04:44 | Outpatient (CLI) | payer MEDICARE, SELFPAY ==
[2024-11-25 09:48] LABS: Anion Gap 12.0 mmol/L (3-11); BUN 10 mg/dL (7-18); CO2 30.0 mmol/L (21.0-32.0); Calcium 8.6 mg/dL (8.5-10.1); Chloride 87 mmol/L (98-107); Estimated GFR 88.91 (mL/min/1.73m2); Glucose 99 mg/dL (74-106); Potassium 4.1 mmol/L (3.5-5.1); Sodium 129 mmol/L (136-145)
== END 2024-11-25 04:45 | disposition home or self-care (01) ==
PROVIDERS: PCP Family Medicine; Visit Provider Family Medicine
DX: E87.1 Hypo-osmolality and hyponatremia (principal); F10.10 Alcohol abuse, uncomplicated
CPT/HCPCS: 36415; 80048

== ENCOUNTER → 2024-12-20 10:15 | Outpatient (BNVA) | payer MEDICARE, SELFPAY | PROVIDERS: PCP Family Medicine; Referring Provider Family Medicine; Visit Provider Urology | DX: N40.0 Benign prostatic hyperplasia without lower urinary tract symptoms (principal); N13.30 Unspecified hydronephrosis | CPT/HCPCS: 76775 ==

== ENCOUNTER 2024-12-27 03:42 | Emergency (ER) | payer MEDICARE, SELFPAY ==
[2024-12-27] VITALS (57 sets, daily range): BP systolic 103–153; BP diastolic 35–91; PULSE 84–165; RESP 13–46; TEMP 36.4; O2SAT 85–100
--- NOTE | 2024-12-27 03:30 | RT.EKG_ITS ---
APPROVED REPORT Exam: Resting ECG Reason for Exam: rapid heart rate Patient Location: E HR:97 bpm ECG Measurements Heart Rate 97 AXIS ME 173 P 14 QRSd 101 QRS -53 QT 361 T 2 QTc 458 Conclusion Sinus rhythm...normal P axis, V-rate 60- 99 Inferior infarct, old...Q >35mS, II III aVF
--- NOTE | 2024-12-27 04:01 | DI.CT_ITS ---
Exam(s) CT HEAD CERVICAL SPINE WO EXAM: CT HEAD CERVICAL SPINE WO CLINICAL HISTORY: fall, alcohol intoxication. TECHNIQUE: Imaging Protocol: Axial computed tomography images with coronal and sagittal reformatted images were created and reviewed COMPARISON: No exams were available for comparison FINDINGS: CT Head: Ventricles and Extra axial spaces: Normal in size and morphology for the patient's age. Hemorrhage: None. Cerebral parenchyma: There are areas of decreased attenuation in the white matter consistent with microvascular ischemic disease. There is no evidence of an acute territorial infarct. Midline shift: None. Brainstem/Cerebellum: Normal. Calvarium: The lucencies in the skull base occipital bone are unchanged. No skull fracture is identified. Visualized Paranasal sinuses/Mastoids: There is mild mucosal thickening in the maxillary sinuses. There is also mucosal thickening in the sphenoid sinuses bilaterally. There is a mucous retention cyst in the right sphenoid sinus. The remaining visualized paranasal sinuses and mastoid air cells are clear. Soft Tissues: Unremarkable. CT Cervical Spine: Bones: No acute fracture or subluxation. Age-appropriate degenerative changes are present in the cervical spine. Soft Tissues: Unremarkable. Lung Apices: Clear. IMPRESSION: 1. No acute intracranial process. 2. No acute fracture or subluxation in the cervical spine. 3. The preliminary [facility] report was reviewed. RADIATION DOSE DELIVERED: 1,428.76mGy.cm Total DLP DATA REPOSITORY: All CT scans at this facility are submitted to the National Radiology Data Registry (NRDR) Dose Index Registry (DIR) with the [employer] (ACR). RADIATION OPTIMIZATION: All CT scans at this facility use at least one of these dose optimization techniques: automated exposure control; mA and/or kV adjustment per patient size (includes targeted exams where dose is matched to clinical indication); or iterative reconstruction.
[2024-12-27 04:10] LABS: Abs Immature Grans 0.03 10^3/uL (0.0-0.06); HCT 31.5 % (40.0-50.0); HGB 11.2 g/dL (13.5-17.5); Immature Grans % 1.0 %; MCH 35.2 pg (27.0-33.0); MCHC 35.6 % (32.0-36.0); MCV 99 fL (80-95); MPV 8.4 fL (8.0-11.0); Platelet Count 201 10^3/uL (130-400); RBC 3.18 10^6/uL (4.36-5.78); RDW 12.6 % (11.8-14.1); RDW-SD 45.6 fL; WBC 3.05 10^3/uL (4.4-10.8)
[2024-12-27] MEDS: Normal Saline 1,000 ML 1000 ML IV ×2 (04:21→05:29)
[2024-12-27 04:28] LABS: Glucose Negative (Negative)
[2024-12-27 04:40] LABS: C & S Indicated? Yes
[2024-12-27 04:45] LABS: ALT 85 U/L (16-63); AST 95 U/L (15-37); Albumin 3.4 g/dL (3.4-5.0); Alkaline Phosphatase 104 U/L (46-116); Anion Gap 12.8 mmol/L (3-11); BUN 6 mg/dL (7-18); Bilirubin, Total 1.0 mg/dL (0.2-1.0); CO2 25.2 mmol/L (21.0-32.0); Calcium 8.7 mg/dL (8.5-10.1); Chloride 91 mmol/L (98-107); Glucose 89 mg/dL (74-106); Magnesium 1.6 mg/dL (1.8-2.4); Potassium 4.3 mmol/L (3.5-5.1); Sodium 129 mmol/L (136-145); Total Protein 6.9 g/dL (6.4-8.2); Troponin I 10 ng/L (<or=76)
[2024-12-27] MEDS: cefTRIAXone 1 GM VIAL IV (04:56)
[2024-12-27] MEDS: Normal Saline 50 ML 100 ML (04:57)
--- NOTE | 2024-12-27 05:00 | DI.RAD_ITS ---
Exam(s) XR PORTABLE CHEST AP EXAM: XR PORTABLE CHEST AP CLINICAL HISTORY: sepsis TECHNIQUE: 2D digital imaging was performed of the chest. One image was obtained. An AP view was obtained. COMPARISON: CR CHEST 2 VIEWS PA,LAT from 05/16/2015 CR CHEST 2 VIEWS PA,LAT from 02/12/2016 FINDINGS: MEDIASTINUM: Normal. HEART: Normal. PULMONARY VASCULATURE: Normal. LUNGS: Clear. PLEURAL SPACE: No pleural effusion or pneumothorax. BONE:Within normal limits for the patient's age. OTHER FINDINGS:There is elevation of the right hemidiaphragm. IMPRESSION: 1. No acute pulmonary findings. 2. The preliminary [facility] report was reviewed. DATA REPOSITORY: RADIATION DOSE DELIVERED:
--- NOTE | 2024-12-27 05:24 | W.ED.GENAD ---
Discharge Plan Disposition Patient Disposition: Admit to [facility] Discharge Details Clinical Impression: Alcohol abuse, Alcohol withdrawal delirium, Urinary tract infection in male, Sepsis Primary Care Provider: Rachel Taveras ED Provider: Sreedhar Lawler Home Meds and New Rx's Prescriptions: No Action pravastatin 40 mg tablet 40 mg PO DAILY Qty: 90 3RF losartan 50 mg tablet 50 mg PO HS Qty: 90 3RF metoprolol succinate 100 mg tablet extended release 24 hr 100 mg PO DAILY Qty: 90 3RF furosemide [Lasix] 40 mg tablet 40 mg PO BID Qty: 180 3RF memantine-donepezil 28-10 mg capsule,sprinkle,ER 24hr 1 cap PO QHS Qty: 90 3RF multivitamin 1 EACH tablet 1 ea PO DAILY One-Per-Day [place]-3 1 EACH capsule,delayed release(DR/EC) 1 ea PO DAILY HPI General Date/Time Provider Initiated Documentation: 12/27/24 04:01. HPI Narrative: The patient is an 79-year-old male, with a history significant for hypertension, hyperlipidemia, and alcohol misuse disorder, who presents to the emergency department this morning from his home after EMS was called for a lift assist regarding follow-up in his kitchen. EMS initially patched into the emergency room as a med control activation, as the patient and his were refusing transport. EMS was concerned because the patient had a heart rate in the 140s. They report that the him to the house quite a bit to help with the desisting, and the patient seemed more lucid than he typically does. I asked them to try to persuade him to come to the emergency room. When he presented his tachycardia had resolved, at least at rest, and his initial pulse was in the high 90s. The patient was tremulous and could provide almost no history. EMS and nursing reported that the patient had a saturated adult undergarment that smelled quite foul. EMS also reported that the patient had a low-grade temperature of around 100 Fahrenheit when they saw him at his home. The who came in with him reports that he drinks all day and typically throughout the nighttime. She says that he almost never eats. She reports that his last meal was a bowl of Cheerios at breakfast 2 days ago. He typically drinks between 1 and 1.5 gallons of wine daily. Related Data Home Medications Medication Instructions Recorded Confirmed multivitamin 1 ea PO DAILY 10/20/12 12/27/24 omega-3 fatty acids-fish oil 684 1 ea PO DAILY 10/20/12 12/27/24 mg-1,200 mg capsule,delayed release (One-Per-Day [place]-3) pravastatin 40 mg tablet 40 mg PO DAILY #90 tab-caps 01/20/24 12/27/24 losartan 50 mg tablet 50 mg PO HS #90 tabs 03/04/24 12/27/24 metoprolol succinate 100 mg 100 mg PO DAILY #90 tabs 06/28/24 12/27/24 tablet,extended release 24 hr furosemide 40 mg tablet (Lasix) 40 mg PO BID #180 tab-caps 10/26/24 12/27/24 memantine ER 28 mg-donepezil 10 mg 1 cap PO QHS #90 caps 11/09/24 12/27/24 capsule sprinkle,ext.release 24 hr Previous Rx's Medication Instructions Recorded pravastatin 40 mg tablet 40 mg PO DAILY #90 tab-caps 01/20/24 losartan 50 mg tablet 50 mg PO HS #90 tabs 03/04/24 metoprolol succinate 100 mg 100 mg PO DAILY #90 tabs 06/28/24 tablet,extended release 24 hr furosemide 40 mg tablet (Lasix) 40 mg PO BID #180 tab-caps 10/26/24 memantine ER 28 mg-donepezil 10 mg 1 cap PO QHS #90 caps 11/09/24 capsule sprinkle,ext.release 24 hr Allergies Allergy/AdvReac Type Severity Reaction Status Date / Time thiopental Allergy Intermediate Skin Rash Verified 12/27/24 03:57 General Stated Complaint: AMS/LOC VELASQUEZ: 3 Exam Const General: cooperative, frail appearing and ill appearing chronically Orientation: alert, awake, not oriented to place, not oriented to time and confused Limitations: altered mental status [facility] Head: normal to inspection, normocephalic and atraumatic Ears: external ears normal, TM's normal bilaterally and EAC's normal General nose exam: external nose normal, nares normal and no nasal discharge Face and sinus: normal facial exam, face symmetric and no tenderness Mouth: oral mucosae normal and moist mucous membranes Eyes Conjunctivae: conjunctivae normal Sclera: sclerae normal Pupils: PERRL EOM: EOM intact bilaterally Neck Neck: normal visual inspection, full ROM, no meningeal signs, trachea midline and nontender Chest Chest: normal inspection of the chest and no tenderness Resp Effort & Inspection: normal respiratory effort Auscultation: clear to auscultation bilaterally Cardio Rate: regular rate Rhythm: regular rhythm Heart Sounds: S1 normal and S2 normal GI Inspection: normal to inspection Palpation: soft Auscultation: hyperactive bowel sounds Skin General skin exam: no rashes or lesions noted, elasticity normal, turgor normal and no ecchymosis Neuro General: oriented Patient Orientation: Person and Confused, moves all extremities, normal light touch, pain and propioception and no focal motor deficits Cranial Nerves: CN's II-XI intact bilaterally and nystagmus present Cognition: abnormal cognition Speech: speech normal Motor: muscle tone normal throughout Extrem General: full ROM, no clubbing, no cyanosis and edema (1+ pitting edema below the knees) Laterality: bilateral Course Vital Signs Vital signs: Vital Signs Temperature 36.4 C L 12/27/24 03:45 Pulse 106 H 12/27/24 03:45 Respiratory Rate 18 12/27/24 03:45 Blood Pressure 149/69 H 12/27/24 03:45 Pulse Oximetry 99 12/27/24 03:45 Temperature 36.4 C L 12/27/24 03:45 Temperature Source Oral 12/27/24 03:51 Pulse 95 H 12/27/24 05:01 Pulse 154 H 12/27/24 04:21 Respiratory Rate 33 H 12/27/24 05:01 Respiratory Effort Normal, Non-Labored 12/27/24 03:51 Respiratory Depth Normal 12/27/24 03:51 Respiratory Pattern Normal 12/27/24 03:51 Blood Pressure 136/69 12/27/24 05:01 Blood Pressure Mean 90 12/27/24 05:01 Blood Pressure Position Supine 12/27/24 03:51 Pulse Oximetry 97 12/27/24 05:00 Oxygen Delivery Method Room Air 12/27/24 03:51 Oxygen Flow Rate 0 12/27/24 03:51 Pain Level 0 12/27/24 03:51 Lab/Test Results Lab/Test Results: 12/27/24 04:15 Urine - Reflex from Ua Urine Culture - Pending Laboratory Tests Range/Units 12/27/24 12/27/24 12/27/24 03:56 04:15 04:21 WBC (4.4-10.8) 10^3/uL 3.05 L RBC (4.36-5.78) 10^6/uL 3.18 L Hgb (13.5-17.5) g/dL 11.2 L Hct (40.0-50.0) % 31.5 L MCV (80-95) fL 99 H MCH (27.0-33.0) pg 35.2 H MCHC (32.0-36.0) % 35.6 RDW (11.8-14.1) % 12.6 Plt Count (130-400) 10^3/uL 201 MPV (8.0-11.0) fL 8.4 Immature Gran % % 1.0 Neutrophils % % 38.9 Lymphocytes % % 37.4 Monocytes % % 19.0 Eosinophils % % 3.0 Basophils % % 0.7 Nucleated RBC % (0.0-0.3) % 0.0 Absolute Neutrophils (1.2-6.7) 10^3/uL 1.19 L Absolute Lymphocytes (1.2-3.4) 10^3/uL 1.14 L Absolute Monocytes (0.1-0.8) 10^3/uL 0.58 Absolute Eosinophils (0.0-0.7) 10^3/uL 0.09 Absolute Basophils (0.0-0.2) 10^3/uL 0.02 VBG Lactate (<or=2.0) mmol/L Sodium Cancelled 129 L Potassium Cancelled 4.3 Chloride Cancelled 91 L Carbon Dioxide Cancelled 25.2 Anion Gap Cancelled 12.8 H BUN Cancelled 6 L Creatinine Cancelled 0.8 Est GFR (CKD-EPI 2020) Cancelled 88.91 Glucose Cancelled 89 Calcium Cancelled 8.7 Magnesium Cancelled 1.6 L Total Bilirubin Cancelled 1.0 AST Cancelled 95 H ALT Cancelled 85 H Alkaline Phosphatase Cancelled 104 Troponin I Cancelled 10 Total Protein Cancelled 6.9 Albumin Cancelled 3.4 Urine Color (Yellow) Dark Yellow Urine Clarity (Clear) Cloudy Urine pH (5-8) 6.0 Ur Specific [place] (1.005-1.025) 1.010 Urine Protein (Neg-Trace) mg/dL 30 H Urine Ketones (Negative) mg/dL Negative Urine Blood (Negative) Trace-intact H Urine Nitrite (Negative) Negative Urine Bilirubin (Negative) Negative Urine Urobilinogen (Up to 0.2) mg/dL 2.0 H Ur Leukocyte Esterase (Negative) Moderate H Urine RBC (0-2) HPF 3-5 H Urine WBC (0-5) HPF 10-20 H Ur Epithelial Cells (Negative) HPF Negative Urine Crystals (Negative) HPF Few Amorphous Urine Bacteria (Negative) HPF Packed Urine Casts (Negative) LPF Negative Urine Mucus (Negative) Moderate Ur Culture Indicated? Yes Urine Glucose (Negative) mg/dL Negative Ethyl Alcohol Cancelled 19.1 H Range/Units 12/27/24 04:55 WBC (4.4-10.8) 10^3/uL RBC (4.36-5.78) 10^6/uL Hgb (13.5-17.5) g/dL Hct (40.0-50.0) % MCV (80-95) fL MCH (27.0-33.0) pg MCHC (32.0-36.0) % RDW (11.8-14.1) % Plt Count (130-400) 10^3/uL MPV (8.0-11.0) fL Immature Gran % % Neutrophils % % Lymphocytes % % Monocytes % % Eosinophils % % Basophils % % Nucleated RBC % (0.0-0.3) % Absolute Neutrophils (1.2-6.7) 10^3/uL Absolute Lymphocytes (1.2-3.4) 10^3/uL Absolute Monocytes (0.1-0.8) 10^3/uL Absolute Eosinophils (0.0-0.7) 10^3/uL Absolute Basophils (0.0-0.2) 10^3/uL VBG Lactate (<or=2.0) mmol/L 4.9 H* Sodium Potassium Chloride Carbon Dioxide Anion Gap BUN Creatinine Est GFR (CKD-EPI 2020) Glucose Calcium Magnesium Total Bilirubin AST ALT Alkaline Phosphatase Troponin I Total Protein Albumin Urine Color (Yellow) Urine Clarity (Clear) Urine pH (5-8) Ur Specific [place] (1.005-1.025) Urine Protein (Neg-Trace) mg/dL Urine Ketones (Negative) mg/dL Urine Blood (Negative) Urine Nitrite (Negative) Urine Bilirubin (Negative) Urine Urobilinogen (Up to 0.2) mg/dL Ur Leukocyte Esterase (Negative) Urine RBC (0-2) HPF Urine WBC (0-5) HPF Ur Epithelial Cells (Negative) HPF Urine Crystals (Negative) HPF Urine Bacteria (Negative) HPF Urine Casts (Negative) LPF Urine Mucus (Negative) Ur Culture Indicated? Urine Glucose (Negative) mg/dL Ethyl Alcohol Medical Decision Making The patient was seen and examined. His initial examination was mildly concerning for alcohol withdrawal symptoms, given the fact that the patient was tremulous and confused. The patient could also be suffering from Warnicke's encephalopathy, given the limited amount of nutritional intake he has beyond alcohol. The patient was not remarkably tachycardic but his heart rate did increase when he was sat up in bed. The patient's workup was positive for a urinary tract infection, as well as some hyponatremia, which is likely related to the increased free water intake from his copious alcohol consumption. The patient's lactic acid level was elevated at 4.9, leading me to think that the patient likely has some septicemia related to his urinary tract infection. The patient's CT scans of the head and neck are still outstanding, but my evaluation of them does not reveal any acute injuries. The patient had a hypomagnesemia, although this was modest. Patient's blood alcohol level was only 19, making me concerned that he would ultimately develops more significant withdrawal symptoms. The patient has an allergy to thiopental, so phenobarbital was not utilized for the alcohol withdrawal symptoms. The patient was given 2 mg of IV Ativan initially and has 1 mg ordered as well as every hour CIWA scale. The patient was given IV Rocephin for his urinary tract infection, 2.5 L of normal saline for his septicemia (with repeat lactic acid after completion of the fluid bolus), high-dose IV thiamine (500 mg), 1 mg of IV folate, 2 g of magnesium sulfate, and 2 mg of IV Ativan to help improve his withdrawal symptoms. The patient did become mildly hypoxic after the initial dose of Ativan was placed on 2 L nasal cannula which improved his oxygen saturation back into the high 90s. The patient did not have an elevated troponin here in the emergency room. The patient's EKG represents a normal sinus rhythm with ventricular response rate of 97 bpm and although there are some repolarization abnormalities, there is nothing that would suggest pattern injury ischemia. The patient will require admission to the hospital for ongoing management of his septicemia based on his urinary tract infection. The patient may develop some worsening hyponatremia related to the normal saline infusion, but this can be ultimately managed with either medication or free water restriction, depending on the patient's hospital course. A chest x-ray was added onto the workup to complete the evaluation for sepsis. Will discuss the case with the hospitalist service for admission for ongoing management of alcohol withdrawal, treatment of his underlying urinary tract infection, and management of his electrolyte and nutritional derangement. Critical Care Time Critical Care Time Critical Care Time: Yes Total Critical Care Time: 60 Attestation: The patient was seen and stabilized from the standpoint of septicemia related to urinary tract infection as well as alcohol withdrawal. The patient was given multiple medications to help control his autonomic instability and improve his infection. Patient at this point reviewed. [facility] All Active Problems (Updated 12/27/24 @ 06:40 by Sreedhar Lawler MD) Sepsis (Acute) Urinary tract infection in male (Acute) Alcohol withdrawal delirium (Acute) Chronic diarrhea (Acute) Urinary incontinence (Acute) Edema of both lower legs (Acute) Nail dystrophy (Acute) Moderate cognitive impairment (Acute ~12/16/23) Anterolisthesis of lumbar spine (Acute) Spinal stenosis at L4-L5 level (Acute) improved with physical therapy Incidental lung nodule, greater than or equal to 8mm (Acute) stable on repeat 10/2023; next due 10/2024 Hearing loss (Acute) Onychomycosis (Acute) Abnormal electrocardiography (Acute 01/2023) Echocardiogram of left ventricular normal size wall thickness normal. LVEF estimated at 70%. No segmental wall motion abnormalities. Right ventricle is normal size. Right ventricle systolic function normal. Peak right ventricular systolic pressure was 22 mmHg. No hemodynamically significant valvular disease. Alcohol abuse (Chronic 11/02/12) 05/2021-4 drinks/day Benign prostatic hyperplasia (Chronic) s/p TURP 12/2022; followed by urology Essential hypertension (Chronic) Hyperlipidemia (Chronic) Obesity (Chronic) Medical History Spinal stenosis surgery [place] 05/06 x 2; now disabled. Elevated PSA Negative prostate biopsy 2008 for 1 time elevated PSA. PSA returned to baseline after biopsy. Negative pathology on TURP 2022 Diverticulosis Surgical History S/P TURP (12/2022) emergent due to bilateral hydronephrosis History of colonoscopy History of umbilical hernia repair S/P cataract extraction Status post lumbar spine surgery for decompression of spinal cord (2013) Family History Mother Personal history of malignant neoplasm Pancreatic Father Personal history of malignant neoplasm Lung Brother Dementia Daughter No problems noted. Daughter No problems noted. Social History Smoking/Tobacco Use Status: Former Tobacco Use tobacco type: cigarettes Quit Date: 06/24/75 Tobacco: How many years used: 20 Second Hand Exposure: No Smoking risk assessment performed?: Yes Alcohol Intake: current Alcohol Intake frequency: 3 or more drinks per day Alcohol type: wine Counseling provided: provider counseling Details: Notes 7-9 drinks on a typical day, 6 or more daily or almost daily. 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 Do you think of yourself as: straight/heterosexual Current gender identity: male What is your relationship status?: Panel score (0-1 are the most socially isolated patients): 1 Do you feel safe at home: Yes Do you feel safe in your relationship?: Yes PAWSS Have you Been Recently Intoxicated or Drunk Within the Last 30 days?: Yes Have you Ever Experienced Previous Episodes of Alcohol Withdrawal?: No Have you ever Experienced Withdrawal Seizures?: No Have you ever Experienced Delirium Tremens(DT)s?: No Have you ever undergone Alcohol Rehabilitation Treatment (i.e, inpt ot outpatient treatment programs)?: No Have you ever Experienced Blackouts?: No Have you ever Combined Alcohol with other Downers within the last 90 days?: No Have you ever Combined Alcohol with any other Substance of Abuse during the last 90 days?: No Positive Blood Alcohol level on Presentation? [PCS.BAL]: No Evidence of Increased Autonomic Activity (i.e. HR>120, tremor, sweating, agitation, nausea)?: Yes Result: 2
[2024-12-27] MEDS: LORazepam 20 MG/10 ML VIAL IVP (05:25)
[2024-12-27] MEDS: Folic Acid 50 MG/10 ML VIAL IV (05:29)
[2024-12-27] MEDS: MAGNESIUM SULFATE 2 GM/50 ML BAG IV_INF (05:31)
[2024-12-27 05:46] LABS: Troponin I 10 ng/L (<or=76)
[2024-12-27] MEDS: THIAMINE 500 MG in Normal Saline 100 ML 200 MG IVPB (05:46)
--- NOTE | 2024-12-27 05:58 | DI.VRAD_ITS ---
PROCEDURE INFORMATION: Exam: CT Head Without Contrast Exam date and time: 12/27/2024 4:35 AM Age: 79 years old Clinical indication: Other: Fall, alcohol intoxication TECHNIQUE: Imaging protocol: Computed tomography of the head without contrast. COMPARISON: CT HEAD WO 12/02/2023 8:15 PM FINDINGS: Brain: Mild low attenuation in the periventricular white matter. This is a nonspecific finding most commonly seen in setting of microvascular ischemic change. Moderate involutional changes of the brain parenchyma. No evidence of acute infarct. No intraparenchymal hemorrhage. No midline shift or mass effect. No extra-axial fluid collections or hemorrhage. Cerebral ventricles: No ventriculomegaly. Paranasal sinuses: Visualized sinuses are unremarkable. No fluid levels. Mastoid air cells: Visualized mastoid air cells are well aerated. Bones: Unremarkable. No acute fracture. Soft tissues: Unremarkable. IMPRESSION: 1. No evidence of acute intracranial abnormality. 2. Please refer to separately dictated report for cervical spine CT for description of findings in this region. PROCEDURE INFORMATION: Exam: CT Cervical Spine Without Contrast Exam date and time: 12/27/2024 4:35 AM Age: 79 years old Clinical indication: Other: Fall, alcohol intoxication TECHNIQUE: Imaging protocol: Computed tomography of the cervical spine without contrast. COMPARISON: NM BONE SCAN WHOLE BODY GRP 03/05/2023 11:07 AM FINDINGS: Bones: Mild dextroscoliosis. No acute or suspicious osseous abnormalities. Moderate multilevel degenerative changes of the cervical spine, with findings including disc space narrowing, uncovertebral hypertrophy, facet arthropathy, marginal osteophytes, and posterior disc osteophyte complexes, greatest at C5 through C7. Lungs: Lung apices are normal. Soft tissues: Unremarkable. IMPRESSION: 1. No evidence of acute fracture or subluxation of the cervical spine. 2. Multilevel degenerative changes. 3. Please refer to separately dictated report for head CT for description of findings in this region. Dictated and Authenticated by: Alfreda Gavin MD. Orderin Nuris Eli MD
--- NOTE | 2024-12-27 06:17 | DI.VRAD_ITS ---
PROCEDURE INFORMATION: Exam: XR Chest Exam date and time: 12/27/2024 6:06 AM Age: 79 years old Clinical indication: Other: Sepsis TECHNIQUE: Imaging protocol: Radiologic exam of the chest. Views: 1 view. COMPARISON: CT CHEST WO 10/25/2024 8:06 AM FINDINGS: Limitations: Low lung volumes. Portable technique. Lungs: Unremarkable. No consolidation. Pleural spaces: Unremarkable. No pleural effusion. No pneumothorax. Heart/Mediastinum: Unremarkable. No cardiomegaly. Bones/joints: Unremarkable. IMPRESSION: No evidence of active cardiopulmonary disease. Dictated and Authenticated by: Alfreda Gavin MD. Orderin Nuris Eli MD
--- NOTE | 2024-12-27 06:59 | W.PM.HP.N ---
Date of service: 12/27/24 Time of Service: 06:59 Assessment and Plan Assessment and plan (1) Sepsis: Status: Acute Assessment and plan: - Patient meets sepsis criteria with a heart rate greater than 100, white blood cell count of 3.9, source infection being UTI - No signs of endorgan damage, does not meet severe sepsis criteria - Was started on ceftriaxone, will continue - Follow-up urine culture and blood culture results (2) Urinary tract infection in male: Status: Acute Assessment and plan: - Source of infection as noted above (3) Alcohol withdrawal delirium: Status: Acute Assessment and plan: - Patient has significant history of alcohol use reportedly drinking about a gallon and a half of wine a day - CIWA score noted to be as high as 8 in the emergency department and was thus started on IV Ativan as patient has documented allergy to thiopental which cross-react with phenobarbital - After Ativan doses patient came significantly somnolent - Will monitor patient and give additional doses of p.o. benzos as needed as per CIWA protocol (4) Acute hypoxemic respiratory failure: Status: Acute Assessment and plan: - Secondary to IV Ativan as noted above - Required up to 2 L nasal cannula to maintain oxygen saturation greater than 92% - Will wean supplemental oxygen as tolerated (5) Essential hypertension: Status: Chronic Assessment and plan: - Continue home Toprol XL - At this time holding home Lasix and losartan (6) Hyperlipidemia: Status: Chronic Assessment and plan: Holding home statin at this time- History of Present Illness History of Present Illness Chief Complaint: fall Narrative: 79-year-old male with a past medical history of hypertension, hyperlipidemia, alcohol use disorder was brought in to the emergency department after experiencing a fall at home. Ordered ported leaving patient called EMS for a lift assist after having fallen in his kitchen and EMS noted the patient was tachycardic with a heart rate of 140 but refused transport. However, EMS was able to talk the patient into come to the emergency department to be evaluated. Patient denied any headache, lightheadedness, dizziness, hitting his head upon falling, losing consciousness, nausea vomiting or diarrhea. In the emergency department the patient was noted to have normal vital signs, normal CBC and CMP. However, patient's reported that he consumes about a gallon and a half of wine throughout the day and evening, and that he said significantly decreased p.o. intake last eating a bowl of Cheerios about 40 hours prior to arrival. EMS also noted that patient's garments were saturated and foul-smelling likely urine. While in the emergency department patient was noted as being tremulous and felt to be going through alcohol withdrawal. Patient was noted to have a allergy to thiopental and was given 2 doses of IV Ativan, however patient became significantly somnolent and hypoxic. Patient also had a UA that was highly suggestive of urinary tract infection with moderate leukocyte esterase, 10-20 WBCs, and packed bacteria for which patient was started on Rocephin. Which time emergency room provider paged hospitalist for admission for patient with UTI, alcohol withdrawal, and iatrogenic hypoxic respiratory failure. Review of Systems All systems reviewed & are unremarkable except as noted in HPI and below PFSH All Active Problems (Updated 12/27/24 @ 07:52 by Mode Marks MD) Acute hypoxemic respiratory failure (Acute) Sepsis (Acute) Urinary tract infection in male (Acute) Alcohol withdrawal delirium (Acute) Chronic diarrhea (Acute) Urinary incontinence (Acute) Edema of both lower legs (Acute) Nail dystrophy (Acute) Moderate cognitive impairment (Acute ~12/16/23) Anterolisthesis of lumbar spine (Acute) Spinal stenosis at L4-L5 level (Acute) improved with physical therapy Incidental lung nodule, greater than or equal to 8mm (Acute) stable on repeat 10/2023; next due 10/2024 Hearing loss (Acute) Onychomycosis (Acute) Abnormal electrocardiography (Acute 01/2023) Echocardiogram of left ventricular normal size wall thickness normal. LVEF estimated at 70%. No segmental wall motion abnormalities. Right ventricle is normal size. Right ventricle systolic function normal. Peak right ventricular systolic pressure was 22 mmHg. No hemodynamically significant valvular disease. Alcohol abuse (Chronic 11/02/12) 05/2021-4 drinks/day Benign prostatic hyperplasia (Chronic) s/p TURP 12/2022; followed by urology Essential hypertension (Chronic) Hyperlipidemia (Chronic) Obesity (Chronic) Medical History Spinal stenosis surgery [place] 05/06 x 2; now disabled. Elevated PSA Negative prostate biopsy 2008 for 1 time elevated PSA. PSA returned to baseline after biopsy. Negative pathology on TURP 2022 Diverticulosis Surgical History S/P TURP (12/2022) emergent due to bilateral hydronephrosis History of colonoscopy History of umbilical hernia repair S/P cataract extraction Status post lumbar spine surgery for decompression of spinal cord (2013) Family History Mother Personal history of malignant neoplasm Pancreatic Father Personal history of malignant neoplasm Lung Brother Dementia Daughter No problems noted. Daughter No problems noted. Social History Smoking/Tobacco Use Status: Former Tobacco Use tobacco type: cigarettes Quit Date: 06/24/75 Tobacco: How many years used: 20 Second Hand Exposure: No Smoking risk assessment performed?: Yes Alcohol Intake: current Alcohol Intake frequency: 3 or more drinks per day Alcohol type: wine Counseling provided: provider counseling Details: Notes 7-9 drinks on a typical day, 6 or more daily or almost daily. 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 Do you think of yourself as: straight/heterosexual Current gender identity: male What is your relationship status?: Panel score (0-1 are the most socially isolated patients): 1 Do you feel safe at home: Yes Do you feel safe in your relationship?: Yes Meds Allergies and Home Medications Allergies Allergy/AdvReac Type Severity Reaction Status Date / Time thiopental Allergy Intermediate Skin Rash Verified 12/27/24 03:57 Home Medications Medication Instructions Recorded Confirmed Type multivitamin 1 ea PO DAILY 10/20/12 12/27/24 History omega-3 fatty acids-fish oil 684 1 ea PO DAILY 10/20/12 12/27/24 History mg-1,200 mg capsule,delayed release (One-Per-Day [place]-3) pravastatin 40 mg tablet 40 mg PO DAILY #90 tab-caps 01/20/24 12/27/24 Rx losartan 50 mg tablet 50 mg PO HS #90 tabs 03/04/24 12/27/24 Rx metoprolol succinate 100 mg 100 mg PO DAILY #90 tabs 06/28/24 12/27/24 Rx tablet,extended release 24 hr furosemide 40 mg tablet (Lasix) 40 mg PO BID #180 tab-caps 10/26/24 12/27/24 Rx memantine ER 28 mg-donepezil 10 mg 1 cap PO QHS #90 caps 11/09/24 12/27/24 Rx capsule sprinkle,ext.release 24 hr cefpodoxime 100 mg tablet 100 mg PO BID #10 tabs 12/27/24 Rx Exam Narrative Exam Narrative: Chronically fatigued but otherwise well-appearing older gentleman laying in bed in no acute distress, ANO x 4, heart regular rhythm, lungs good auscultation bilaterally, abdomen soft, nontender, nondistended Results Labs 12/27/24 03:56 12/27/24 07:45 Labs: Laboratory Results - last 24 hr 12/27/24 12/27/24 12/27/24 03:56 04:15 04:21 WBC 3.05 L RBC 3.18 L Hgb 11.2 L Hct 31.5 L MCV 99 H MCH 35.2 H MCHC 35.6 RDW 12.6 Plt Count 201 MPV 8.4 Immature Gran % 1.0 Neutrophils % 38.9 Lymphocytes % 37.4 Monocytes % 19.0 Eosinophils % 3.0 Basophils % 0.7 Nucleated RBC % 0.0 Absolute Neutrophils 1.19 L Absolute Lymphocytes 1.14 L Absolute Monocytes 0.58 Absolute Eosinophils 0.09 Absolute Basophils 0.02 VBG Lactate Sodium Cancelled 129 L Potassium Cancelled 4.3 Chloride Cancelled 91 L Carbon Dioxide Cancelled 25.2 Anion Gap Cancelled 12.8 H BUN Cancelled 6 L Creatinine Cancelled 0.8 Est GFR (CKD-EPI 2020) Cancelled 88.91 Glucose Cancelled 89 Calcium Cancelled 8.7 Magnesium Cancelled 1.6 L Total Bilirubin Cancelled 1.0 AST Cancelled 95 H ALT Cancelled 85 H Alkaline Phosphatase Cancelled 104 Troponin I Cancelled 10 Total Protein Cancelled 6.9 Albumin Cancelled 3.4 Urine Color Dark Yellow Urine Clarity Cloudy Urine pH 6.0 Ur Specific [place] 1.010 Urine Protein 30 H Urine Ketones Negative Urine Blood Trace-intact H Urine Nitrite Negative Urine Bilirubin Negative Urine Urobilinogen 2.0 H Ur Leukocyte Esterase Moderate H Urine RBC 3-5 H Urine WBC 10-20 H Ur Epithelial Cells Negative Urine Crystals Few Amorphous Urine Bacteria Packed Urine Casts Negative Urine Mucus Moderate Ur Culture Indicated? Yes Urine Glucose Negative Ethyl Alcohol Cancelled 19.1 H 12/27/24 12/27/24 04:55 05:23 WBC RBC Hgb Hct MCV MCH MCHC RDW Plt Count MPV Immature Gran % Neutrophils % Lymphocytes % Monocytes % Eosinophils % Basophils % Nucleated RBC % Absolute Neutrophils Absolute Lymphocytes Absolute Monocytes Absolute Eosinophils Absolute Basophils VBG Lactate 4.9 H* Sodium Potassium Chloride Carbon Dioxide Anion Gap BUN Creatinine Est GFR (CKD-EPI 2020) Glucose Calcium Magnesium Total Bilirubin AST ALT Alkaline Phosphatase Troponin I 10 Total Protein Albumin Urine Color Urine Clarity Urine pH Ur Specific [place] Urine Protein Urine Ketones Urine Blood Urine Nitrite Urine Bilirubin Urine Urobilinogen Ur Leukocyte Esterase Urine RBC Urine WBC Ur Epithelial Cells Urine Crystals Urine Bacteria Urine Casts Urine Mucus Ur Culture Indicated? Urine Glucose Ethyl Alcohol Last Vital Signs Temp 97.5 F L 12/27/24 03:45 Pulse 104 H 12/27/24 06:21 Resp 17 12/27/24 06:21 BP 114/35 L 12/27/24 06:21 Pulse Ox 100 12/27/24 06:21 PAWSS Have you Been Recently Intoxicated or Drunk Within the Last 30 days?: Yes Have you Ever Experienced Previous Episodes of Alcohol Withdrawal?: No Have you ever Experienced Withdrawal Seizures?: No Have you ever Experienced Delirium Tremens(DT)s?: No Have you ever undergone Alcohol Rehabilitation Treatment (i.e, inpt ot outpatient treatment programs)?: No Have you ever Experienced Blackouts?: No Have you ever Combined Alcohol with other Downers within the last 90 days?: No Have you ever Combined Alcohol with any other Substance of Abuse during the last 90 days?: No Positive Blood Alcohol level on Presentation? [PCS.BAL]: No Evidence of Increased Autonomic Activity (i.e. HR>120, tremor, sweating, agitation, nausea)?: Yes Result: 2 Time Spent Time spent with Patient: >75 minutes Time was spent: preparing to see the patient(eg.review tests), obtaining and/or reviewing separately otained hiistory, ordering medications,tests, procedures, referring, communicating with other health wound care center consultant, indepentently interpreting results, counseling the patient and care coordination
[2024-12-27 08:03] LABS: Anion Gap 11.1 mmol/L (3-11); BUN 6 mg/dL (7-18); CO2 25.9 mmol/L (21.0-32.0); Calcium 8.2 mg/dL (8.5-10.1); Chloride 95 mmol/L (98-107); Glucose 92 mg/dL (74-106); Potassium 4.3 mmol/L (3.5-5.1); Sodium 132 mmol/L (136-145)
[2024-12-27] MEDS: MULTIVITAMIN 10 ML, THIAMINE 100 MG, FOLIC ACID 1 MG in DEXTROSE 5%-0.45% SALINE 1,000 ML 125 ML IV (08:18)
[2024-12-27] MEDS: Metoprolol CR 100 MG TABCR PO (08:52)
--- NOTE | 2024-12-27 09:36 | DSE_ITS ---
Date of service: 12/27/24 Time of Service: 09:36 DS: Diagnosis Discharge Diagnosis (1) Sepsis: Status: Acute Asessment and Plan: - Sepsis rapidly resolved, given with patient leaving on p.o. antibiotics will be discharged home with additional 5 days of c/o cefpodoxime - Lactic acid initially 4.3, likely secondary to a combination of sepsis that likely more so from alcohol use as noted below (2) Urinary tract infection in male: Status: Acute Asessment and Plan: - Source of infection as noted above (3) Alcohol withdrawal delirium: Status: Acute Asessment and Plan: - Patient did have a mildly elevated CIWA in ED up to 8 - He was given Ativan which resulted in plastic encephalopathy and hypoxia - It is noted the patient likely has undiagnosed ALINE is likely because of his hypoxia - Additionally patient states that he does not want to stay in the hospital to go through alcohol withdrawal, and that he wants to go home and drink - Patient is of sound mind and is able to make this decision on his own. Additionally, patient's and daughters agree that the patient's best interest to keep him in the hospital to go through alcohol withdrawal as it is against his wishes, and given that sepsis has resolved and he can be transition to p.o. antibiotics decision was made to discharge patient home. (4) Acute hypoxemic respiratory failure: Status: Acute (5) Essential hypertension: Status: Chronic (6) Hyperlipidemia: Status: Chronic Discharge Plan Disposition Patient Disposition: Home Discharge Details Clinical Impression: Alcohol abuse, Alcohol withdrawal delirium, Urinary tract infection in male, Sepsis Primary Care Provider: Rachel Taveras ED Provider: Sreedhar Lawler Home Meds and New Rx's Prescriptions: New cefpodoxime 100 mg tablet 100 mg PO BID Qty: 10 0RF Rx Instructions: must administer with a meal/food Continued pravastatin 40 mg tablet 40 mg PO DAILY Qty: 90 3RF losartan 50 mg tablet 50 mg PO HS Qty: 90 3RF metoprolol succinate 100 mg tablet extended release 24 hr 100 mg PO DAILY Qty: 90 3RF furosemide [Lasix] 40 mg tablet 40 mg PO BID Qty: 180 3RF memantine-donepezil 28-10 mg capsule,sprinkle,ER 24hr 1 cap PO QHS Qty: 90 3RF multivitamin 1 EACH tablet 1 ea PO DAILY One-Per-Day [place]-3 1 EACH capsule,delayed release(DR/EC) 1 ea PO DAILY Discharge Instructions Instructions: Urinary Tract Infection, Adult ED Stand Alone Forms: Portal Information Discharge Data Discharge Date/Time-TO BE ENTERED AT DEPARTURE: 12/27/24 09:34 Discharge Physician: Mode Marks DS: Summary Time Spent with Patient providing and/or coordinating discharge services: Greater than 30 minutes Status at Discharge Functional status at discharge: independent ambulation Overall status at discharge: patient is back to baseline Mental Status: mental status grossly normal Speech and Movement: speech and movement normal Mood: congruent mood Affect: normal affect Exam Narrative Exam Narrative: Chronically fatigued but otherwise well-appearing older gentleman laying in bed in no acute distress, ANO x 4, heart regular rhythm, lungs good auscultation bilaterally, abdomen soft, nontender, nondistended Psych Mental Status: mental status grossly normal Speech and Movement: speech and movement normal Mood: congruent mood Affect: normal affect DS: Data Vitals/I&O Vitals and I&O: Vital Signs Temperature 97.5 F L 12/27/24 03:45 Temperature Source Oral 12/27/24 03:51 Pulse 99 H 12/27/24 09:20 Pulse 100 H 12/27/24 09:20 Respiratory Rate 16 12/27/24 09:20 Respiratory Effort Normal, Non-Labored 12/27/24 03:51 Respiratory Depth Normal 12/27/24 03:51 Respiratory Pattern Normal 12/27/24 06:00 Blood Pressure 124/62 12/27/24 09:20 Blood Pressure Mean 82 12/27/24 09:20 Blood Pressure Position Supine 12/27/24 03:51 Pulse Oximetry 97 12/27/24 09:20 Oxygen Delivery Method Room Air 12/27/24 09:15 Oxygen Flow Rate 0 12/27/24 09:15 Pain Level 0 12/27/24 03:51 Intake & Output 12/26/24 12/27/24 12/27/24 17:59 05:59 17:59 Intake Total 1000 / 1000 1105 / 1105 Output Total 300 / 300 Balance 700 / 700 1105 / 1105 Weight 180 lb Intake: IV 1000 / 1000 1105 / 1105 Output: Urine 300 / 300 Other: Urine Color Yellow Urine Appearance Cloudy Data Completed and Pending Pending Labs at Discharge: 12/27/24 12/27/2412/27/25 03:56 04:15 04:21 WBC 3.05 L RBC 3.18 L Hgb 11.2 L Hct 31.5 L MCV 99 H MCH 35.2 H MCHC 35.6 RDW 12.6 Plt Count 201 MPV 8.4 Immature Gran % 1.0 Neutrophils % 38.9 Lymphocytes % 37.4 Monocytes % 19.0 Eosinophils % 3.0 Basophils % 0.7 Nucleated RBC % 0.0 Absolute Neutrophils 1.19 L Absolute Lymphocytes 1.14 L Absolute Monocytes 0.58 Absolute Eosinophils 0.09 Absolute Basophils 0.02 VBG Lactate Sodium Cancelled 129 L Potassium Cancelled 4.3 Chloride Cancelled 91 L Carbon Dioxide Cancelled 25.2 Anion Gap Cancelled 12.8 H BUN Cancelled 6 L Creatinine Cancelled 0.8 Est GFR (CKD-EPI 2020) Cancelled 88.91 Glucose Cancelled 89 Calcium Cancelled 8.7 Phosphorus Magnesium Cancelled 1.6 L Total Bilirubin Cancelled 1.0 AST Cancelled 95 H ALT Cancelled 85 H Alkaline Phosphatase Cancelled 104 Troponin I Cancelled 10 Total Protein Cancelled 6.9 Albumin Cancelled 3.4 Urine Color Dark Yellow Urine Clarity Cloudy Urine pH 6.0 Ur Specific [place] 1.010 Urine Protein 30 H Urine Ketones Negative Urine Blood Trace-intact H Urine Nitrite Negative Urine Bilirubin Negative Urine Urobilinogen 2.0 H Ur Leukocyte Esterase Moderate H Urine RBC 3-5 H Urine WBC 10-20 H Ur Epithelial Cells Negative Urine Crystals Few Amorphous Urine Bacteria Packed Urine Casts Negative Urine Mucus Moderate Ur Culture Indicated? Yes Urine Glucose Negative Ethyl Alcohol Cancelled 19.1 H 12/27/24 12/27/24 12/27/24 04:55 05:23 07:45 WBC RBC Hgb Hct MCV MCH MCHC RDW Plt Count MPV Immature Gran % Neutrophils % Lymphocytes % Monocytes % Eosinophils % Basophils % Nucleated RBC % Absolute Neutrophils Absolute Lymphocytes Absolute Monocytes Absolute Eosinophils Absolute Basophils VBG Lactate 4.9 H* 1.9 Sodium 132 L Potassium 4.3 Chloride 95 L Carbon Dioxide 25.9 Anion Gap 11.1 H BUN 6 L Creatinine 0.6 L Est GFR (CKD-EPI 2020) 96.98 Glucose 92 Calcium 8.2 L Phosphorus 2.7 Magnesium Total Bilirubin AST ALT Alkaline Phosphatase Troponin I 10 Total Protein Albumin Urine Color Urine Clarity Urine pH Ur Specific [place] Urine Protein Urine Ketones Urine Blood Urine Nitrite Urine Bilirubin Urine Urobilinogen Ur Leukocyte Esterase Urine RBC Urine WBC Ur Epithelial Cells Urine Crystals Urine Bacteria Urine Casts Urine Mucus Ur Culture Indicated? Urine Glucose Ethyl Alcohol Preliminary micro results at discharge 12/27/24 04:15 Urine - Reflex from Ua Urine Culture - Pending [facility] All Active Problems (Updated 12/27/24 @ 07:52 by Mode Marks MD) Acute hypoxemic respiratory failure (Acute) Sepsis (Acute) Urinary tract infection in male (Acute) Alcohol withdrawal delirium (Acute) Chronic diarrhea (Acute) Urinary incontinence (Acute) Edema of both lower legs (Acute) Nail dystrophy (Acute) Moderate cognitive impairment (Acute ~12/16/23) Anterolisthesis of lumbar spine (Acute) Spinal stenosis at L4-L5 level (Acute) improved with physical therapy Incidental lung nodule, greater than or equal to 8mm (Acute) stable on repeat 10/2023; next due 10/2024 Hearing loss (Acute) Onychomycosis (Acute) Abnormal electrocardiography (Acute 01/2023) Echocardiogram of left ventricular normal size wall thickness normal. LVEF estimated at 70%. No segmental wall motion abnormalities. Right ventricle is normal size. Right ventricle systolic function normal. Peak right ventricular systolic pressure was 22 mmHg. No hemodynamically significant valvular disease. Alcohol abuse (Chronic 11/02/12) 05/2021-4 drinks/day Benign prostatic hyperplasia (Chronic) s/p TURP 12/2022; followed by urology Essential hypertension (Chronic) Hyperlipidemia (Chronic) Obesity (Chronic) Medical History Spinal stenosis surgery [place] 05/06 x 2; now disabled. Elevated PSA Negative prostate biopsy 2008 for 1 time elevated PSA. PSA returned to baseline after biopsy. Negative pathology on TURP 2022 Diverticulosis Surgical History S/P TURP (12/2022) emergent due to bilateral hydronephrosis History of colonoscopy History of umbilical hernia repair S/P cataract extraction Status post lumbar spine surgery for decompression of spinal cord (2013) Family History Mother Personal history of malignant neoplasm Pancreatic Father Personal history of malignant neoplasm Lung Brother Dementia Daughter No problems noted. Daughter No problems noted. Social History Smoking/Tobacco Use Status: Former Tobacco Use tobacco type: cigarettes Quit Date: 06/24/75 Tobacco: How many years used: 20 Second Hand Exposure: No Smoking risk assessment performed?: Yes Alcohol Intake: current Alcohol Intake frequency: 3 or more drinks per day Alcohol type: wine Counseling provided: provider counseling Details: Notes 7-9 drinks on a typical day, 6 or more daily or almost daily. 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 Do you think of yourself as: straight/heterosexual Current gender identity: male What is your relationship status?: Panel score (0-1 are the most socially isolated patients): 1 Do you feel safe at home: Yes Do you feel safe in your relationship?: Yes Time Spent with Patient Time Spent with Patient: <45 minutes Time was spent: preparing to see the patient(eg.review tests), obtaining and/or reviewing separately otained hiistory, ordering medications,tests, procedures, referring, communicating with other health healthcare network pricing consultant, indepentently interpreting results, counseling the patient and care coordination
--- NOTE | 2024-12-29 14:31 | NUR.NOTE ---
Accessed Pt chart to document the antibiotics given to Pt for the Specimen Report. Report given to Providers
== END 2024-12-27 09:34 | disposition home or self-care (01) ==
PROVIDERS: Family Medicine; Emergency Provider Emergency Medicine Emergency Medical Services; PCP Family Medicine
DX: N39.0 Urinary tract infection, site not specified (principal); A41.9 Sepsis, unspecified organism; F10.931 Alcohol use, unspecified with withdrawal delirium; J96.01 Acute respiratory failure with hypoxia; I10 Essential (primary) hypertension; E78.5 Hyperlipidemia, unspecified
CPT/HCPCS: 00123; 36415; 51701; 80048; 80053; 93005; 96361; 96365; 96366; 96375; 99291; 70450; 71045; 72125; 80320; 81003; 81015; 83605; 83735; 84100; 84484; 85025; 87086; 93010; J0696; J2060; J3411; J3475